=== PATIENT | female | born 1965 | race Caucasian/White ===

== ENCOUNTER 2020-03-05 06:01 | Day surgery (SDC) | payer OTHER, SELFPAY ==
[2020-02-27 10:25] VITALS: BMI 25.1
--- NOTE | 2020-03-03 08:50 | HO.ANESPROP2 ---
Documented by User: Hodan Melo 03/03/20 08:56 HPI - Anesthesia Eval Consult details Narrative: 55yo F for cholecystectomy, s/p ERCP 02/03/20 with [facility], [facility] Past Medical History Medical History Choledocholithiasis Cholelithiasis History of Xmsah-Vqcyflaje-Txxni (WPW) syndrome Surgical History Surgical History History of ERCP History of Problems with Anesthesia: No Social History Social History Smoking Status: Current every day smoker Packs Per Day: 1 Cigarettes Per Day: 20.0 Years Smoked: 27 Smoked in Last 30 Days: Yes Use of substances other than those prescribed or required for medical reasons: No Advance Directives Information Provided: Yes Recently lost weight without trying: No Meds Allergies Allergy/AdvReac Type Severity Reaction Status Date / Time No Known Allergies Allergy Verified 02/27/20 10:34 [No Known Allergies*] Home Medications Medication Instructions Recorded Confirmed Type No Known Home Meds 03/05/20 03/05/20 History Exam Exam Date and Time: March 03, 2020 0850 Height,Weight and Vital Signs: Height 5 ft 10 in Weight 79.379 kg Pertinent Lab Results Pertinent Lab Results: Laboratory Tests 02/02/20 02/02/20 07:15 07:15 WBC 6.5 Hgb 11.7 L Hct 35.1 L Plt Count 175 Sodium 139 Potassium 4.2 Chloride 105 BUN 5 L Creatinine 0.62 Narrative Narrative: EKG 01/31/20: NSR @67, WPW Documented by User: Nesha Ceja 03/05/20 07:49 [facility], [facility] Past Medical History Medical History Choledocholithiasis Cholelithiasis History of Duxft-Hkmmpvqpg-Zdanm (WPW) syndrome Surgical History Surgical History History of ERCP Social History Social History Smoking Status: Current every day smoker Packs Per Day: 1 Cigarettes Per Day: 20.0 Years Smoked: 27 Smoked in Last 30 Days: Yes Use of substances other than those prescribed or required for medical reasons: No Advance Directives Information Provided: Yes Recently lost weight without trying: No Meds Allergies Allergy/AdvReac Type Severity Reaction Status Date / Time No Known Allergies Allergy Verified 02/27/20 10:34 [No Known Allergies*] Home Medications Medication Instructions Recorded Confirmed Type No Known Home Meds 03/05/20 03/05/20 History Exam Airway Mallampati Class: II TM Dist: >3cm Neck ROM: Full Loose/Missing/Broken Teeth: Yes (9 chipped) Heart: RRR Lungs: CTA Assessment and Plan Assessment Anesthesia Assessment: Anesthesia Plan Discussed, Smoking Cess. Discussed and Chart Reviewed Final Anesthetic Review NPO: Yes ASA Class: II Final Preanesthetic Review: No Changes in Pt Med Stat, Meds/Allgs Chart Reviewed, Consent Obtained/Reviewed and Anes Risks/Benef Reviewed Patient Risk: Intermediate Procedure Risk: Intermediate Assessment/Block/Sedation in SS: Assess/Block/Sedation-SS Anesthetic Plan Anesthetic Plan: GA Disposition: Standard PACU
[2020-03-05] VITALS (8 sets, daily range): BP systolic 121–138; BP diastolic 62–75; PULSE 66–86; RESP 16; TEMP 36.1–36.4; O2SAT 96–100
[2020-03-05] MEDS: Acetaminophen 325 MG TABLET 650 MG PO (06:40)
[2020-03-05] MEDS: Lactated Ringers 1,000 ML 100 ML IVCONT (06:41)
--- NOTE | 2020-03-05 07:31 | MHC.SHP ---
Pre-Procedural Eval Section A The patient is an INPATIENT: No Changes since office visit: Yes Patient answered all questions; No Cold of Flu in the past 2 weeks, No New Medical Problems and No Changes in Medication The History & Physical has been completed within 30 days and I have reviewed it.: Yes Section B Chief Complaint: Gallstone Pancreatitis, Choledocholithiasis Allergies: Allergies Allergy/AdvReac Type Severity Reaction Status Date / Time No Known Allergies Allergy Verified 02/27/20 10:34 [No Known Allergies*] Plan Diagnosis/Plan: Unchanged Patient has been examined and remains a candidate for the planned procedure
--- NOTE | 2020-03-05 08:21 | P.BOP_ITS ---
Brief Operative Note Date of procedure: 03/05/20 Pre-op diagnosis: Choleducholithiasis, cholelithiasis Post-op diagnosis: same Procedure: Laparoscopic cholecystectomy Procedure details: Patient was brought to the OR and placed in a supine position. After administering general anesthesia the patient's abdomen was prepped with ChloraPrep and draped in a sterile fashion. A surgical time-out was called and the consent confirmed. Patient received preoperative antibiotics and Venodyne boots were in place. Local anesthesia consisting of 0.75% Sensorcaine with epinephrine was infiltrated in a periumbilical region. A 5 mm incision was made above the umbilicus in a transverse fashion. The Veress needle was then inserted while elevating abdominal cavity with towel clips. After positive drop test the abdomen was insufflated to a pressure of 15 mm of mercury. The Veress needle was then removed and a 5 mm trocar inserted. The camera was inserted in the abdomen explored. A 12 mm trocar was then placed in the epigastrium and 2 5 mm trocars placed in the right upper quadrant. The patient was placed in reverse Trendelenburg positioning and rotated to the left. The gallbladder was grasped with the fundus and retracted cephalad.. The infundibulum was then grasped and retracted away from the liver bed. The Dolphin dissected was then used to dissect the peritoneum off the infundibulum to reveal the junction with the cystic duct. Cystic artery was noted slightly medial and posterior to the cystic duct. After obtaining a critical view the cystic duct was doubly clipped and divided. The cystic artery was then doubly clipped and divided. The g allbladder was then dissected off the liver bed using electrocautery with an L hook. Hemostasis was assured all times using the electrocautery. When the gallbladder is completely dissected off the liver bed was placed in an Endo- Catch bag and brought out through the epigastric incision. The gallbladder was sent to pathology for further examination. The abdomen was then re-examined. The liver bed was irrigated and suctioned dry. No bleeding or bile leak could be identified. CO2 was then evacuated and all trocars removed. Fascia was closed at the epigastric incision using a [id number] 0 Polysorb suture. Skin was closed in all incisions using a subcuticular 4 0 Polysorb suture. Sterile dressings consisting of Steri-Strips, 2 x 2 gauze, and Tegaderm were then applied. The patient tolerated the procedure well. Sponge instrument and needle counts reported as correct. The patient was transferred to PACU in stable condition. Operative findings: Gallbladder was noted to have multiple small gallstones but minimal inflammation or wall thickening. A large cyst of the liver was identified in the right lobe adjacent to the stomach. No obvious liver masses were appreciated. Implants: none Surgeon: Sina Fernandez MD Anesthesia: GETA Grinding Operator: Leonor Justice Estimated blood loss (mL): 5 Urine output (mL): 0 Pathology: other (gallbladder) Condition: stable Disposition: PACU
[2020-03-05] MEDS: oxyCODONE HCl Immed Release 5 MG TABLET PO (09:07)
--- NOTE | 2020-03-09 15:06 | W.PM.OPN ---
Operative Note Operative Note Narrative: Date of procedure: 03/05/20 Pre-op diagnosis: Choleducholithiasis, cholelithiasis Post-op diagnosis: same Procedure: Laparoscopic cholecystectomy Procedure details: Patient was brought to the OR and placed in a supine position. After administering general anesthesia the patient's abdomen was prepped with ChloraPrep and draped in a sterile fashion. A surgical time-out was called and the consent confirmed. Patient received preoperative antibiotics and Venodyne boots were in place. Local anesthesia consisting of 0.75% Sensorcaine with epinephrine was infiltrated in a periumbilical region. A 5 mm incision was made above the umbilicus in a transverse fashion. The Veress needle was then inserted while elevating abdominal cavity with towel clips. After positive drop test the abdomen was insufflated to a pressure of 15 mm of mercury. The Veress needle was then removed and a 5 mm trocar inserted. The camera was inserted in the abdomen explored. A 12 mm trocar was then placed in the epigastrium and 2 5 mm trocars placed in the right upper quadrant. The patient was placed in reverse Trendelenburg positioning and rotated to the left. The gallbladder was grasped with the fundus and retracted cephalad.. The infundibulum was then grasped and retracted away from the liver bed. The Dolphin dissected was then used to dissect the peritoneum off the infundibulum to reveal the junction with the cystic duct. Cystic artery was noted slightly medial and posterior to the cystic duct. After obtaining a critical view the cystic duct was doubly clipped and divided. The cystic artery was then doubly clipped and divided. The gallbladder was then dissected off the liver bed using electrocautery with an L hook. Hemostasis was assured all times using the electrocautery. When the gallbladder is completely dissected off the liver bed was placed in an Endo-Catch bag and brought out through the epigastric incision. The gallbladder was sent to pathology for further examination. The abdomen was then re-examined. The liver bed was irrigated and suctioned dry. No bleeding or bile leak could be identified. CO2 was then evacuated and all trocars removed. Fascia was closed at the epigastric incision using a [id number] 0 Polysorb suture. Skin was closed in all incisions using a subcuticular 4 0 Polysorb suture. Sterile dressings consisting of Steri-Strips, 2 x 2 gauze, and Tegaderm were then applied. The patient tolerated the procedure well. Sponge instrument and needle counts reported as correct. The patient was transferred to PACU in stable condition. Operative findings: Gallbladder was noted to have multiple small gallstones but minimal inflammation or wall thickening. A large cyst of the liver was identified in the right lobe adjacent to the stomach. No obvious liver masses were appreciated. Implants: none Surgeon: Sina Fernandez MD Anesthesia: GETA Balance Wheel Screw Hole Tapper: Leonor Justice Estimated blood loss (mL): 5 Urine output (mL): 0 Pathology: other (gallbladder) Condition: stable Disposition: PACU
== END 2020-03-05 10:01 | disposition home or self-care (01) ==
PROVIDERS: Visit Provider Surgery
PROC: 0FT44ZZ Resection of Gallbladder, Percutaneous Endoscopic Approach (ICD-10-PCS; CPT 47562; principal; 2020-03-05 07:30)
DX: K80.10 Calculus of gallbladder with chronic cholecystitis without obstruction (principal); K85.10 Biliary acute pancreatitis without necrosis or infection; K76.89 Other specified diseases of liver; I45.6 Pre-excitation syndrome; F17.210 Nicotine dependence, cigarettes, uncomplicated
CPT/HCPCS: 47562; 88304; J0131; J1100; J1885; J2250; J2405; J3010

== ENCOUNTER → 2020-03-11 15:05 | Outpatient (BNVA) | payer OTHER, SELFPAY | PROVIDERS: Visit Provider Surgery | DX: Z09 Encounter for follow-up examination after completed treatment for conditions other than malignant neoplasm (principal); Z87.19 Personal history of other diseases of the digestive system; Z90.49 Acquired absence of other specified parts of digestive tract | CPT/HCPCS: 99212 ==

== ENCOUNTER 2020-07-01 14:26 | Outpatient (REF) | payer OTHER, SELFPAY ==
[2020-07-01 16:38] LABS: Glucose Urine UA NEG (NEG); Leukocyte Esterase Urine NEG (NEG); Nitrite Urine NEG (NEG); Specific Gravity - Urine >= 1.030 (1.005-1.025); Urine Blood TRACE (NEG); Urine Ketones NEG (NEG); Urine Protein NEG (NEG-TRACE)
[2020-07-01 16:42] LABS: Appearance Urine CLEAR; Color Urine YELLOW
[2020-07-01 16:53] LABS: Bacteria Urine 1+ /LPF; RBC Urine 0-2 /HPF (0); Squamous Epithelial Cell Urine 2+ /LPF; WBC Urine 0 /HPF (0-4)
[2020-07-01 16:54] LABS: Alanine Aminotransferase 17 U/L (0-31); Albumin Level 4.2 g/dL (3.5-5.0); Alkaline Phosphatase 100 U/L (39-117); Anion Gap 10 (12-20); Aspartate Amino Transferase 24 U/L (5-31); Bilirubin Direct 0.4 mg/dL (0.0-0.5); Blood Urea Nitrogen 19 mg/dL (9-16); Calcium 9.5 mg/dL (8.4-10.2); Carbon Dioxide 28 mmol/L (22-29); Chloride 106 mmol/L (96-108); Cholesterol 195 mg/dL; Estimated Glomerular Filt Rate > 60; Glucose Fasting 90 mg/dL (60-99); HDL Cholesterol 63 mg/dL; LDL Cholesterol Calculated 121 mg/dl; Potassium 4.2 mmol/L (3.3-5.1); Sodium 140 mmol/L (135-145); Total Protein 7.2 g/dL (6.5-8.0); Triglycerides 57 mg/dL
== END 2020-07-01 14:27 | disposition home or self-care (01) ==
LOC: HO.HMGCLDS 14:26
PROVIDERS: PCP Internal Medicine; Visit Provider Internal Medicine
DX: Z00.01 Encounter for general adult medical examination with abnormal findings (principal); R79.89 Other specified abnormal findings of blood chemistry; K76.89 Other specified diseases of liver; Z72.0 Tobacco use
CPT/HCPCS: 36415; 80048; 80061; 80076; 81001

== ENCOUNTER 2020-07-20 15:57 | Outpatient (REF) | payer OTHER, SELFPAY ==
[2020-07-23 11:42] LABS: HPV mRNA E6/E7 rflx Not Detected (Not Detected)
== END 2020-07-20 15:58 | disposition home or self-care (01) ==
LOC: HO.LAB 15:57
PROVIDERS: Visit Provider Obstetrics & Gynecology
DX: Z01.419 Encounter for gynecological examination (general) (routine) without abnormal findings (principal)
CPT/HCPCS: 36415; 87624; 88142

== ENCOUNTER 2020-07-27 10:01 | Outpatient (REF) | payer OTHER, SELFPAY ==
--- NOTE | ~2020-07-27 | US_ITS ---
EXAMINATION: US ABDOMEN COMPLETE CLINICAL INFORMATION: Elevated LFTs. Liver cyst. COMPARISON: CT abdomen pelvis 01/31/2020. Ultrasound limited abdomen 01/31/2020. Ultrasound abdomen 09/11/2016. TECHNIQUE: Real-time imaging of the abdominal viscera. FINDINGS: PANCREAS: Normal. ABDOMINAL AORTA: The proximal, mid, and distal segments are normal in caliber. INFERIOR VENA CAVA: Visualized portions are normal. LIVER: There is a prominent cyst involving the left lobe of the liver measuring 13.1 x 9.1 x 12 cm. This is likely without significant change from the prior CT, given differences in technique. The cyst appears simple. The liver is normal in size. The liver contour is normal. Parenchymal echogenicity is normal. There is no intrahepatic biliary duct dilatation seen. GALLBLADDER: Surgically absent. COMMON BILE DUCT: Normal in caliber measuring 0.5 cm in diameter. RIGHT KIDNEY: There is an upper pole simple cyst measuring 3.9 cm. No hydronephrosis or renal calculi. The kidney measures 12.7 cm in maximum dimension. LEFT KIDNEY: There is a calculus at the midpole measuring 0.4 x 0.7 x 0.4 cm. No hydronephrosis or renal lesion. The kidney measures 13.0 cm in maximum dimension. SPLEEN: Normal. The spleen measures 10.0 cm in maximum dimension. FREE FLUID: None. US/US abdomen complete IMPRESSION: 1. Prominent cyst of the left lobe of the liver, as seen on prior CT. No additional liver lesions. 2. Unchanged right renal cyst which appears simple. 3. Nonobstructing left renal calculus.
== END 2020-07-27 10:02 | disposition home or self-care (01) ==
LOC: HO.HMGCX 10:01
PROVIDERS: Visit Provider Internal Medicine
DX: K76.89 Other specified diseases of liver (principal); R79.89 Other specified abnormal findings of blood chemistry
CPT/HCPCS: 76700

== ENCOUNTER 2020-09-19 08:41 | Outpatient (REF) | payer OTHER, SELFPAY ==
--- NOTE | ~2020-09-19 | MM_ITS ---
EXAMINATION: MM SCREENING DIGITAL BREAST TOMOSYNTHESIS, BILATERAL CLINICAL INFORMATION: Screening. Asymptomatic. The lifetime risk of breast cancer based on the Tyrer-Cuzick Model is 6%. COMPARISON: Outside mammography 05/06/2013, 11/08/2009 ([facility]). TECHNIQUE: Digital breast tomosynthesis is performed in both the craniocaudal and mediolateral oblique views along with computer-aided detection (CAD). Synthesized 2D images are generated from the tomosynthesis. Additional bilateral exaggerated CC views are provided. FINDINGS: There are scattered areas of fibroglandular density (ACR BI-RADS breast composition Category b). There are no significant masses, abnormal calcifications, or other abnormalities. There is stable intramammary node posterior upper outer left breast. Some grouped dermal calcifications are again noted posterior medial left breast. Other scattered calcifications unremarkable. The axilla and skin contours are unremarkable. MM/MM tomosynthesis screening BI IMPRESSION: No mammographic evidence of malignancy. ASSESSMENT: BI-RADS 2: Benign RECOMMENDATION: Routine annual mammography screening. This patient's information was entered into a reminder system with a target due date for their next mammogram.
== END 2020-09-19 08:42 | disposition home or self-care (01) ==
LOC: HO.MAMMO 08:41
PROVIDERS: PCP Internal Medicine; Visit Provider Internal Medicine
DX: Z12.31 Encounter for screening mammogram for malignant neoplasm of breast (principal)
CPT/HCPCS: 77063; 77067

== ENCOUNTER 2021-06-07 12:52 | Inpatient (IN) | payer OTHER, SELFPAY ==
--- NOTE | ~2021-06-07 | CT_ITS ---
EXAMINATION: CT ABDOMEN AND PELVIS WITHOUT CONTRAST CLINICAL INFORMATION: Abdominal pain. COMPARISON: Previous CT of the abdomen and pelvis January 2020 and abdominal ultrasound July 2020. TECHNIQUE: Multidetector volumetric imaging was performed from the superior aspect of the liver through the pubic symphysis. Sagittal and coronal reformatted images were obtained on the technologist's workstation. This CT examination was performed using dose optimization techniques as appropriate, variously including the following: *Automated exposure control *Adjustment of mA and/or kV according to patient size (this includes techniques or standardized protocols for targeted exams where dose is matched to indication/reason for exam; i.e. extremities or head) *Use of iterative reconstruction technique DLP: 600 mGy-cm FINDINGS: LUNG BASES: The visualized lung bases are unremarkable. LIVER, GALLBLADDER, AND BILIARY TREE: The liver is normal in size, shape, and attenuation. There is a large 9 x 12 x 12 cyst in the left lobe of the liver. This is not appreciably changed in size. There is some new stranding of the surrounding fat adjacent to the inferior margin of the cyst. Appearance is questionable for infected cyst or possibly cyst rupture. There is a 5 mm low-attenuation lesion in the posterior segment of the right lobe of the liver that is difficult to characterize axial image 29 series 2. This is stable from previous CT scan January 2020 may represent a cyst as well. The liver is otherwise unremarkable. The gallbladder has been removed. There is no biliary duct dilatation. PANCREAS: Unremarkable. SPLEEN: Unremarkable. ADRENAL GLANDS: Unremarkable. KIDNEYS AND URETERS: There is a 3 x 5 cm simple cyst in the upper pole of the right kidney. No imaging followup is indicated. There are small bilateral renal stones. Largest stone measures 2 x 3 mm in the upper pole of the left kidney. No hydronephrosis, ureteral dilatation or ureteral stone. BLADDER: Unremarkable. GASTROINTESTINAL TRACT: There is mild diverticulosis of the colon. No evidence of diverticulitis is seen. Small and large bowel is otherwise unremarkable. The appendix is unremarkable. The stomach is unremarkable. There is a small to moderate amount of fluid in the pelvis. ABDOMINAL WALL: There is a small umbilical hernia containing fat. LYMPH NODES: Normal. VASCULAR: Unremarkable. PELVIC VISCERA: Unremarkable. OSSEOUS STRUCTURES: Unremarkable. CT/CT abdomen pelvis wo con IMPRESSION: Large 9 x 12 x 12 cm cyst in the left lobe of the liver. There is new stranding of the fat adjacent to the cyst. Appearance is questionable for complex possibly superinfected cyst or changes from cyst rupture. Small to moderate amount of fluid in the pelvis. 3 x 5 cm right simple renal cyst. Small bilateral renal stones. Fleischner guidelines were followed.
--- NOTE | ~2021-06-07 | US_ITS ---
EXAMINATION: US GUIDED FINE-NEEDLE ASPIRATION HEPATIC CYST CLINICAL INFORMATION: Complex hepatic cyst, likely superinfected. COMPARISON: CT abdomen and pelvis 06/07/2021. TECHNIQUE: Following explaining the ultrasound-guided liver cyst drainage procedure, and the benefits and risks, a written consent was obtained. The patient was placed supine on the ultrasound stretcher and preliminary ultrasound imaging was obtained through the abdomen. An optimal site was selected along the left anterior abdominal wall paramidline location and marked. The marked area was cleaned and draped in the usual sterile manner. 1% lidocaine was injected at the puncture site. A 4-[employer] catheter was then advanced through the left hepatic lobe into the cyst under ultrasound sterile ultrasound guidance. After observing fluid return, the stylet was withdrawn and approximately 40 mL of fluid was collected in a standard syringe and sent to the lab. The rest of fluid was drained into a vacuum bottle via a connecting cannula. After obtaining all fluid and observing no more fluid remaining and ultrasound confirming there was no cyst remaining, the catheter was withdrawn and complete hemostasis was achieved at the puncture site. A sterile dressing was applied post procedure. The patient tolerated the procedure extremely well. FINDINGS: There is a large midline left hepatic lobe cyst measuring 11.5 x 12.2 x 8. 22 cm. Approximately 450 mL of fluid was drained from the left hepatic lobe liver cyst and sent to the lab as per the referring physician's orders for Gram stain, culture and sensitivity. US/US guided fine needle asp IMPRESSION: Successful ultrasound-guided left hepatic lobe large, complex cyst drainage performed without immediate complications.
[2021-06-07 14:46] VITALS: BP 130/74; PULSE 82; RESP 20; TEMP 36.9; O2SAT 100; BMI 25.1
--- NOTE | 2021-06-07 14:49 | ECG_ITS ---
Test Reason : ABDOMINAL PAIN Blood Pressure : / mmHG Vent. Rate : 085 BPM Atrial Rate : 085 BPM P-R Int : 160 ms QRS Dur : 082 ms QT Int : 368 ms P-R-T Axes : 069 029 033 degrees QTc Int : 437 ms Normal sinus rhythm Normal ECG When compared with ECG of 31-JAN-2020 13:23, Zlgcv-Ylmvqneed-Opdnd is no longer Present Referred By: Generic ED Physician Electronically Signed By:Bony Gomez
[2021-06-07 16:25] LABS: Hematocrit 42.5 % (37.0-47.0); Hemoglobin 14.1 g/dl (12.0-16.0); Mean Corpuscular HGB Conc 33.2 g/dl (31.0-35.0); Mean Corpuscular Hemoglobin 29.3 pg (27.0-33.0); Mean Corpuscular Volume 88.2 fL (80.0-98.0); Mean Platelet Volume 9.5 fL (9.4-12.3); Platelet Count 270 X10*3/uL (160-400); Red Blood Count 4.82 X10*6/uL (4.20-5.50); Red Cell Distribution Width 12.8 % (11.0-16.0)
[2021-06-07 16:30] LABS: Anion Gap 14 (12-20); Blood Urea Nitrogen 15 mg/dL (9-16); Calcium 10.1 mg/dL (8.4-10.2); Carbon Dioxide 26 mmol/L (22-29); Chloride 106 mmol/L (96-108); Creatinine Clr Calc Pharmacy 86.1; Estimated Glomerular Filt Rate > 60; Glucose Random 173 mg/dL (60-115); Potassium 3.3 mmol/L (3.3-5.1); Sodium 143 mmol/L (135-145)
[2021-06-07 16:31] LABS: COVID-19 Test Negative (Negative)
[2021-06-07 16:37] LABS: WBC ABN SCTR FOR CBC 1
[2021-06-07 16:45] LABS: Band Neutrophils Percent 3 % (3-5); Lymphocytes Percent Manual 2 % (20-40); Monocytes Percent Manual 5 % (2-11); Neutrophils Percent Manual 90 % (45-73)
[2021-06-07 16:48] LABS: Platelet Estimate NORMAL (NORMAL)
[2021-06-07 16:49] LABS: Platelet Morphology Comment NORM; RBC Morphology NORMAL
[2021-06-07 16:50] LABS: Toxic Vacuolation PRESENT
[2021-06-07 16:51] LABS: Lymphocytes Absolute Manual 0.4 X10*3/uL (1.2-4.9); Monocytes Absolute Manual 0.9 X10*3/uL (0.1-1.2); White Blood Count 18.3 X10*3/uL (4.8-10.8)
[2021-06-07 22:22] VITALS: BP 160/57; PULSE 116; RESP 16; TEMP 37.9; O2SAT 100
--- NOTE | 2021-06-07 22:29 | ED_ITS ---
HPI - Abdominal Pain General Chief Complaint: Abdominal Pain Stated Complaint: ABD PAIN Time Seen by Provider: 06/07/21 17:52 Source: patient Mode of arrival: ambulatory Limitations: no limitations History of Present Illness HPI narrative: 56-year-old female with a past medical history of choledocholithiasis and cholelithiasis who is now status post ERCP on February of 2020 presenting to the ED with complaints of epigastric abdominal pain that has now radiated to her upper/lower abdomen for 4 days. She reports when she was having her CT scan today she had 1 episode of vomiting small amount of bilious emesis. Other than that she denies any nausea vomiting. She had labs and a CT scan of abdomen and pelvis while she was in the waiting room and labs reviewed at this time. She reports that she noticed today while she was in the waiting room that she also had some blood in her urine although no clots and it was small amounts of blood. She reports the abdominal pain does not radiate to her back or her chest. She denies any dizziness, headaches, neck pain /stiffness, trouble swallowing or breathing, chest pain or shortness of breath, dyspnea on exertion, orthopnea, palpitations, diarrhea, constipation, black or bloody stools , recent travel or sick contacts, possible bad food exposure, recent antibiotic usage or any other symptoms complaints or concerns at this time. patient reports that she is fully vaccinated to the COVID vaccine and she was supposed to get her booster on Monday. Patient denies any drug or alcohol usage. MD elicited complaint: abdominal pain Pertinent past history: other ( See above) Onset (ago): day(s) (4) Pain Consistency: constant Location: epigastric Severity: severe Pain scale (0-10): 10 Quality: aching Radiation: LUQ, RUQ, LLQ and RLQ Exacerbating factors: nothing Relieving factors: nothing Associated symptoms: nausea, vomiting and hematuria Related Data Home Medications Medication Instructions Recorded Confirmed No Known Home Meds 06/24/20 06/24/20 Allergies Allergy/AdvReac Type Severity Reaction Status Date / Time No Known Allergies Allergy Verified 07/20/20 15:00 [No Known Allergies*] Review of Systems Review of Systems Constitutional : No Fever, No Chills, No Night Sweats, No Fatigue, No Malaise Cardiovascular : No Chest Pain, No SOB Respiratory : No Cough, No Sputum, No Wheezing, No Dyspnea Gastrointestinal : + Nausea, + Vomiting, No Diarrhea, + abdominal Pain, No Hematochezia, No Melena Genitourinary : No irregular bleeding, No Dysuria, No Urinary Frequency, + Hematuria,No Urinary Incontinence, No Urgency, No Flank Pain Musculoskeletal : No joint pain, No Myalgias, No Joint Swelling Skin : No Skin Lesions, No rash Neuro : No Weakness, No Numbness, No Paresthesias, No Loss of Consciousness, No Dizziness, No Headache Heme/Lymph: No Lymphadenopathy Endocrine : No Temperature Intolerance Yes all other systems are reviewed and are negative Physical Exam Vital Signs: Vital Signs: Last Vital Signs Temp 100.3 F 06/07/21 22:22 Pulse 116 H 06/07/21 22:22 Resp 15 06/07/21 23:11 BP 160/57 H 06/07/21 22:22 Pulse Ox 100 06/07/21 22:22 BMI result Body Mass Index 25.1 vital signs have been reviewed as normal and appeared to be correct. Blood pressure normal. Heart rate normal. Respiration rate normal. Temperature normal. Oxygen saturation normal. Appearance: Alert. Oriented X3. No acute distress. Head: Normal external exam. Normocephalic. Eyes: PERRLA. EOMI. Conjunctiva and sclera normal. Eyelids normal. ENT: Pharynx normal. Uvula midline. Moist mucous membranes. No trismus noted. No drooling noted. No muffled voice noted. Neck: Normal inspection. Neck supple. FROM. No adenopathy. No meningeal signs. CVS: Normal heart rate and rhythm. Heart sound normal. No murmurs noted. Pulses normal throughout. Respiratory: No respiratory distress. Painless inspiration. Breath sounds normal. No wheezes/rales/rhonchi noted. Chest nontender. No accessory muscle usage noted or decreased air movement noted. Abdomen: Soft and diffusely tender throughout with guarding. Nondistended. No guarding. No rigidity. Bowel sounds normal in all 4 quadrants. No distention noted. No organomegaly noted. No visible injury noted. No rebound tenderness. Negative Rovsing sign. Negative obturator's sign. Negative psoas sign. Negative Pinon sign. Back: No CVA tenderness. Full range of motion noted. Skin: Skin warm and dry. Normal skin color. Normal skin turgor. No rashes/ lesions/lacerations noted. Extremities: Extremities exhibit normal range of motion. Extremities nontender. Neuro: Oriented X 3. No motor deficit. No sensory deficit. Reflexes normal. Normal steady gait. Course Course Course Narrative: 22:15pm - 56-year-old female with a past medical history of choledocholithiasis and cholelithiasis who is now status post ERCP on February of 2020 presenting to the ED with complaints of Nausea/vomiting, epigastric abdominal pain that has now radiated to her upper/lower abdomen for 4 days and hematuria. - She had labs and a CT scan of abdomen and pelvis while she was in the waiting room and labs reviewed at this time. - Patient noted to [place] [address]. Random glucose 173. Total bilirubin 1.5. Otherwise all other labs are within normal limits. Patient negative for COVID. - CT scan of abdomen and pelvis without IV Contrast revealed the large 9 x 12 x 12 cm cyst in the left lobe of the liver. There is is new stranding of the fat adjacent to the cyst. appearance is questionable for complex possible super i nfected cyst or changes from cyst rupture. along with small to moderate amount of fluid in the pelvis. 3 x 5 cm right simple renal cyst. Small bilateral renal stones. Otherwise no other acute processes were noted - therefore at this time blood cultures, lactic acid and a L of IV fluids along with IV Zosyn ordered due to patient now meet sepsis she is tachycardic and she has the elevated white blood cell count that was done in the waiting room which is 18,000. will also give 4 mg of morphine and 4 mg of Zofran. I also consulted with Dr. Figueroa the General Surgeon he reported that she does not need any surgery at this time. Will consult with the primer press operator Dr. Velásquez then re-evaluate. Reevaluation(s) Reevaluation #1: - I consulted with Dr. Velásquez and he reported that if the patient has a fever, tachycardia and elevated white blood cell count that she most likely has a infected liver cyst and that she will need to be admitted for IR drain for the liver cyst. Therefore I discussed this case with Dr. Reed and he reported that he will admit the patient at this time. Her pain is more c ontrolled after the 1 mg of Dilaudid. The 4 mg of morphine did not help. Patient understands agrees with this plan. Time: 00:01 MDM - Abdominal Pain Medical Records Attestation: I reviewed the patient's medical records. Lab Data Attestation: I reviewed the patient's lab results. Result diagrams: 06/07/21 16:04 06/07/21 16:05 Labs: Lab Results 06/07/21 06/07/21 06/07/21 Range/Units 16:04 16:04 16:05 WBC 18.3 H (4.8-10.8) X10*3/uL RBC 4.82 (4.20-5.50) X10*6/uL Hgb 14.1 (12.0-16.0) g/dl Hct 42.5 (37.0-47.0) % MCV 88.2 (80.0-98.0) fL MCH 29.3 (27.0-33.0) pg MCHC 33.2 (31.0-35.0) g/dl RDW 12.8 (11.0-16.0) % Plt Count 270 (160-400) X10*3/uL MPV 9.5 (9.4-12.3) fL Immature Gran % (Auto) Cancelled Neut % (Auto) Cancelled Lymph % (Auto) Cancelled Christian % (Auto) Cancelled Eos % (Auto) Cancelled Baso % (Auto) Cancelled Lymph # (Auto) Cancelled Christian # (Auto) Cancelled Eos # (Auto) Cancelled Baso # (Auto) Cancelled Abs Immat Gran (auto) Cancelled Absolute Neuts (auto) Cancelled Absolute Nucleated RBC 0.000 (0.0-0.012) X10*3/uL Nucleated RBC % (auto) 0.0 (0.0-0.2) /100WBC Neutrophils % (Manual) 90 H (45-73) % Band Neutrophils % 3 (3-5) % Lymphocytes % (Manual) 2 L (20-40) % Monocytes % (Manual) 5 (2-11) % Abs Neuts (Manual) 17.0 H (2.0-8.3) X10*3/uL Lymphocytes # (Manual) 0.4 L (1.2-4.9) X10*3/uL Monocytes # (Manual) 0.9 (0.1-1.2) X10*3/uL Toxic Vacuolation PRESENT Platelet Estimate NORMAL (NORMAL) Plt Morphology Comment NORM RBC Morphology NORMAL Sodium 143 (135-145) mmol/L Potassium 3.3 D (3.3-5.1) mmol/L Chloride 106 (96-108) mmol/L Carbon Dioxide 26 (22-29) mmol/L Anion Gap 14 (12-20) BUN 15 (9-16) mg/dL Creatinine 0.77 (0.5-1.4) mg/dL Estim Creat Clear Calc 86.1 Estimated GFR > 60 Random Glucose 173 H (60-115) mg/dL Lactic Acid (0.5-2.0) mmol/L Calcium 10.1 D (8.4-10.2) mg/dL Total Bilirubin 1.5 H (0.0-1.0) mg/dL Direct Bilirubin 0.5 (0.0-0.5) mg/dL AST 21 (5-31) U/L ALT 16 (0-31) U/L Alkaline Phosphatase 90 (39-117) U/L Lactate Dehydrogenase 214 (122-220) U/L Total Protein 7.2 (6.5-8.0) g/dL Albumin 4.0 (3.5-5.0) g/dL Lipase 10 (8-78) U/L COVID-19 ([facility]IL[facility]) Negative (Negative) COVID-19 Clin Com See Note 06/07/21 Range/Units 22:39 WBC (4.8-10.8) X10*3/uL RBC (4.20-5.50) X10*6/uL Hgb (12.0-16.0) g/dl Hct (37.0-47.0) % MCV (80.0-98.0) fL MCH (27.0-33.0) pg MCHC (31.0-35.0) g/dl RDW (11.0-16.0) % Plt Count (160-400) X10*3/uL MPV (9.4-12.3) fL Immature Gran % (Auto) Neut % (Auto) Lymph % (Auto) Christian % (Auto) Eos % (Auto) Baso % (Auto) Lymph # (Auto) Christian # (Auto) Eos # (Auto) Baso # (Auto) Abs Immat Gran (auto) Absolute Neuts (auto) Absolute Nucleated RBC (0.0-0.012) X10*3/uL Nucleated RBC % (auto) (0.0-0.2) /100WBC Neutrophils % (Manual) (45-73) % Band Neutrophils % (3-5) % Lymphocytes % (Manual) (20-40) % Monocytes % (Manual) (2-11) % Abs Neuts (Manual) (2.0-8.3) X10*3/uL Lymphocytes # (Manual) (1.2-4.9) X10*3/uL Monocytes # (Manual) (0.1-1.2) X10*3/uL Toxic Vacuolation Platelet Estimate (NORMAL) Plt Morphology Comment RBC Morphology Sodium (135-145) mmol/L Potassium (3.3-5.1) mmol/L Chloride (96-108) mmol/L Carbon Dioxide (22-29) mmol/L Anion Gap (12-20) BUN (9-16) mg/dL Creatinine (0.5-1.4) mg/dL Estim Creat Clear Calc Estimated GFR Random Glucose (60-115) mg/dL Lactic Acid 2.7 H* (0.5-2.0) mmol/L Calcium (8.4-10.2) mg/dL Total Bilirubin (0.0-1.0) mg/dL Direct Bilirubin (0.0-0.5) mg/dL AST (5-31) U/L ALT (0-31) U/L Alkaline Phosphatase (39-117) U/L Lactate Dehydrogenase (122-220) U/L Total Protein (6.5-8.0) g/dL Albumin (3.5-5.0) g/dL Lipase (8-78) U/L COVID-19 (CHELITA) (Negative) COVID-19 Clin Com Imaging Data CT scan abdomen pelvis with IV contrast: Attestation: I personally reviewed and interpreted this imaging study as follows: Radiologist's impression: FINDINGS: LUNG BASES: The visualized lung bases are unremarkable.? LIVER, GALLBLADDER, AND BILIARY TREE: The liver is normal in size, shape, and attenuation. There is a large 9 x 12 x 12 cyst in the left lobe of the liver. This is not appreciably changed in size. There is some new stranding of the surrounding fat adjacent to the inferior margin of the cyst. Appearance is questionable for infected cyst or possibly cyst rupture. There is a 5 mm low-attenuation lesion in the posterior segment of the right lobe of the liver that is difficult to characterize axial image 29 series 2. This is stable from previous CT scan January 2020 may represent a cyst as well. The liver is otherwise unremarkable. The gallbladder has been removed. There is no biliary duct dilatation. PANCREAS: Unremarkable.? SPLEEN: Unremarkable.? ADRENAL GLANDS: Unremarkable.? KIDNEYS AND URETERS: There is a 3 x 5 cm simple cyst in the upper pole of the right kidney. No imaging followup is indicated. There are small bilateral renal stones. Largest stone measures 2 x 3 mm in the upper pole of the left kidney. No hydronephrosis, ureteral dilatation or ureteral stone.? BLADDER: Unremarkable.? GASTROINTESTINAL TRACT: There is mild diverticulosis of the colon. No evidence of diverticulitis is seen. Small and large bowel is otherwise unremarkable. The appendix is unremarkable. The stomach is unremarkable. There is a small to moderate amount of fluid in the pelvis. ABDOMINAL WALL: There is a small umbilical hernia containing fat.? LYMPH NODES: Normal. VASCULAR: Unremarkable. PELVIC VISCERA: Unremarkable.? OSSEOUS STRUCTURES: Unremarkable.? CT/CT abdomen pelvis wo con IMPRESSION: Large 9 x 12 x 12 cm cyst in the left lobe of the liver. There is new stranding of the fat adjacent to the cyst. Appearance is questionable for complex possibly superinfected cyst or changes from cyst rupture. Small to moderate amount of fluid in the pelvis. 3 x 5 cm right simple renal cyst. Small bilateral renal stones. ? Fleischner guidelines were followed. ECG Data Attestation: I personally reviewed and interpreted this ECG as follows: ECG interpretation date: 06/08/21 ECG interpretation time: 15:54 Interpretation: NSR with a ventricular rate of 85 With a normal TN interval normal QRS duration normal QT/QTC interval. No acute ischemic changes are noted. The Ch Parkinson White syndrome is no longer present in the EKG. similar compared to prior EKG 01/31/2020 although no Przhi-Ogzgrttuw-Ngday syndrome in this EKG. Critical Care Time Critical Care Time Critical Care Time: Yes Total Critical Care Time: 60 Attestation: I personally attest to this time spent taking care of the patient Discharge Plan Discharge Clinical Impression: Liver cyst, Fever, Sepsis Patient Disposition: Still a Patient [facility] Past Medical History Attestation statement: The following information was validated with the patient. Medical History Choledocholithiasis Cholelithiasis History of Ujile-Sedkagzyt-Qpszi (WPW) syndrome Surgical History History of cholecystectomy History of ERCP Family History Family History Mother T-cell lymphoma Father Dementia Heart disease Social History Social History Alcohol intake: never Patient Tobacco Use Status: Current everyday Tobacco user Cigarette Packs Per Day: 1 Cigarettes Per Day: 20.0 Years Smoked: 27 Use of substances other than those prescribed or required for medical reasons: No Advance Directives: No Advance Directives Information Provided: No Patient : No Gender identity: Female
[2021-06-07 22:35] LABS: Alanine Aminotransferase 16 U/L (0-31); Alkaline Phosphatase 90 U/L (39-117); Aspartate Amino Transferase 21 U/L (5-31); Bilirubin Direct 0.5 mg/dL (0.0-0.5); Bilirubin Total 1.5 mg/dL (0.0-1.0); Lipase 10 U/L (8-78); Total Protein 7.2 g/dL (6.5-8.0)
[2021-06-07 22:46] LABS: Lactate Dehydrogenase 214 U/L (122-220)
[2021-06-07] MEDS: Piperacillin Sodium/Tazobactam 2.25 GM in 0.9 % Sodium Chloride 50 ML IV (23:10)
[2021-06-07 23:11] VITALS: RESP 15
[2021-06-07] MEDS: Morphine Sulfate 4 MG/ML CARTRIDGE IVPUSH (23:11)
[2021-06-07] MEDS: ondansetron HCL 4 MG/2 ML VIAL IVPUSH (23:11)
[2021-06-07] MEDS: Acetaminophen 325 MG TABLET 975 MG PO (23:11)
[2021-06-07] MEDS: 0.9 % Sodium Chloride 1,000 ML 999 ML IVCONT (23:12)
[2021-06-07 23:14] LABS: Lactic Acid 2.7 mmol/L (0.5-2.0)
[2021-06-07] MEDS: HYDROmorphone HCl 1 MG/ML SYRINGE IVPUSH (23:22)
--- NOTE | 2021-06-07 23:28 | PC.NURSE ---
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 Provider aware.
--- NOTE | 2021-06-07 23:57 | P.HPHOSP_ITS ---
History of Present Illness Date of Service: 06/07/21 Chief Complaint: Fever 56F with a past medical history of kidney stones, renal cysts and liver cysts, history of choledocholithiasis/cholelithiasis status post ERCP in February 2020 presented to the hospital today with a chief complaint of abdominal pain/Fever. Patient reports that over the past 4 days she has been having intermittent episodes of epigastric pain associated nausea and vomiting. Denies any blood in the vomitus. Also complained of subjective fevers. Denies any chest pain palpitations. Denies any cough or sputum production. Denies any urinary symptoms. Denies any vaginal discharge or bleeding. Review of all other systems is negative except mentioned above ER course: Per ER team patient had CT abdomen pelvis done which showed 90 12 in to 12 cm cyst in the left lobe of the liver-appears complex cyst possible infection/rupture. Also noted to have 3-5 cm renal cyst. And kidney stones. On labs noted to have leukocytosis. Patient was given IV fluids and IV Zosyn for concern for infection. Discussed with Gastroenterology who recommended IR guided drainage in the morning and gastroenterology will follow up. ER team mentioned that patient was very tender on presentation, no guarding no rigidity. Pain slightly better after IV Dilaudid. Admitted for further management. FOR[facility]LY [facility], [facility] Medical History Choledocholithiasis Cholelithiasis History of Rsdet-Swugvohal-Kayxf (WPW) syndrome Family History Mother T-cell lymphoma Father Dementia Heart disease Pertinent family history: As mentioned above Surgical History History of cholecystectomy History of ERCP Social History Alcohol intake: never Patient Tobacco Use Status: Current everyday Tobacco user Cigarette Packs Per Day: 1 Cigarettes Per Day: 20.0 Years Smoked: 27 Use of substances other than those prescribed or required for medical reasons: No Advance Directives: No Advance Directives Information Provided: No Patient : No Gender identity: Female Meds Allergies Allergy/AdvReac Type Severity Reaction Status Date / Time No Known Allergies Allergy Verified 07/20/20 15:00 [No Known Allergies*] Home Medications Medication Instructions Recorded Confirmed Last Taken Type No Known Home Meds 06/24/20 06/08/21 Unknown History Physical Exam Vital Signs and Narrative: Vital Signs: Last Vital Signs Temp 100.3 F 06/07/21 22:22 Pulse 116 H 06/07/21 22:22 Resp 15 06/07/21 23:11 BP 160/57 H 06/07/21 22:22 Pulse Ox 100 06/07/21 22:22 BMI result Body Mass Index 25.1 Gen: Appears be in no acute distress HEENT: NCAT, Moist mucosa. Pulmonary: Vesicular breath sounds, fair air entry CVS: Normal S1-S2 Abdomen: BS+, Soft, diffusely tender, no guarding no rigidity Extremities: Warm well perfused Neuro: Alert and awake. Results Labs CBC and Chem 7: 06/07/21 16:04 06/07/21 16:05 Labs: Laboratory Results - last 24 hr 06/07/21 06/07/21 06/07/21 16:04 16:04 16:05 MCV 88.2 MCH 29.3 MCHC 33.2 RDW 12.8 Plt Count 270 MPV 9.5 Immature Gran % (Auto) Cancelled Neut % (Auto) Cancelled Lymph % (Auto) Cancelled Dickey % (Auto) Cancelled Eos % (Auto) Cancelled Baso % (Auto) Cancelled Lymph # (Auto) Cancelled Dickey # (Auto) Cancelled Eos # (Auto) Cancelled Baso # (Auto) Cancelled Abs Immat Gran (auto) Cancelled Absolute Neuts (auto) Cancelled Absolute Nucleated RBC 0.000 Nucleated RBC % (auto) 0.0 Neutrophils % (Manual) 90 H Band Neutrophils % 3 Lymphocytes % (Manual) 2 L Monocytes % (Manual) 5 Abs Neuts (Manual) 17.0 H Lymphocytes # (Manual) 0.4 L Monocytes # (Manual) 0.9 Toxic Vacuolation PRESENT Platelet Estimate NORMAL Plt Morphology Comment NORM RBC Morphology NORMAL Anion Gap 14 Estim Creat Clear Calc 86.1 Estimated GFR > 60 Random Glucose 173 H Lactic Acid Calcium 10.1 D Total Bilirubin 1.5 H Direct Bilirubin 0.5 AST 21 ALT 16 Alkaline Phosphatase 90 Lactate Dehydrogenase 214 Total Protein 7.2 Albumin 4.0 Lipase 10 COVID-19 ([facility]HELITA) Negative COVID-19 Clin Com See Note 06/07/21 22:39 MCV MCH MCHC RDW Plt Count MPV Immature Gran % (Auto) Neut % (Auto) Lymph % (Auto) Dickey % (Auto) Eos % (Auto) Baso % (Auto) Lymph # (Auto) Dickey # (Auto) Eos # (Auto) Baso # (Auto) Abs Immat Gran (auto) Absolute Neuts (auto) Absolute Nucleated RBC Nucleated RBC % (auto) Neutrophils % (Manual) Band Neutrophils % Lymphocytes % (Manual) Monocytes % (Manual) Abs Neuts (Manual) Lymphocytes # (Manual) Monocytes # (Manual) Toxic Vacuolation Platelet Estimate Plt Morphology Comment RBC Morphology Anion Gap Estim Creat Clear Calc Estimated GFR Random Glucose Lactic Acid 2.7 H* Calcium Total Bilirubin Direct Bilirubin AST ALT Alkaline Phosphatase Lactate Dehydrogenase Total Protein Albumin Lipase COVID-19 (CHELITA) COVID-19 Clin Com Imaging Radiologist's Impressions: Impressions Abdomen/Pelvis CT 06/07/21 15:47 IMPRESSION: Large 9 x 12 x 12 cm cyst in the left lobe of the liver. There is new stranding of the fat adjacent to the cyst. Appearance is questionable for complex possibly superinfected cyst or changes from cyst rupture. Small to moderate amount of fluid in the pelvis. 3 x 5 cm right simple renal cyst. Small bilateral renal stones. Fleischner guidelines were followed. Assessment and Plan (1) Liver cyst: Status: Acute (2) Fever: Status: Acute 56F with a past medical history of kidney stones, renal cysts and liver cysts, history of choledocholithiasis/cholelithiasis status post ERCP in February 2020 presented to the hospital today with a chief complaint of abdominal pain/Fever. Abdominal pain/fever: Patient noted to have leukocytosis, tachycardia, lactic acidosis-sepsis with concerns for intra-abdominal source- Empirically started on Zosyn. CT scan showed free fluid in the pelvis, liver cyst and renal cyst. Liver 6 concern for complex cyst versus infection versus rupture. Gastroenterology recommended IR guided drain is in the morning. Id consult Follow-up cultures Pain control NPO for now IV fluids DVT prophylaxis: SCD boots Code status: Full code Quality Stroke Does the patient have a stroke diagnosis?: No VTE Prior VTE?: No VTE Risk Level:: Medical - moderate - high VTE Device Contraindication: N/A - Device Ordered VTE Drug Contraindication: Treatment Not Indicated
[2021-06-08] VITALS (11 sets, daily range): BP systolic 105–163; BP diastolic 59–77; PULSE 69–98; RESP 15–21; TEMP 36.8–37.4; O2SAT 93–99
[2021-06-08 00:47] LABS: Reflex Lactate? Lactic Acid Added
[2021-06-08 01:40] LABS: ~Lactic Acid-LAB USE ONLY 1.5 mmol/L (0.5-2.0)
[2021-06-08] MEDS: 0.9 % Sodium Chloride 1,000 ML 50 ML IVCONT ×2 (01:47→16:42)
[2021-06-08 01:54] LABS: Appearance Urine CLEAR; Color Urine DK YELLOW; Glucose Urine UA NEG (NEG); Leukocyte Esterase Urine NEG (NEG); Nitrite Urine NEG (NEG); UACC Culture Trigger NO; Urine Blood TRACE (NEG); Urine Ketones NEG (NEG); Urine Protein TRACE MG/DL (NEG-TRACE)
[2021-06-08 02:08] LABS: Amorphous Sediment Urine TRACE /LPF; Mucus Urine 1+ /LPF; Squamous Epithelial Cell Urine TRACE /LPF; WBC Urine 0 /HPF (0-4)
[2021-06-08] MEDS: HYDROmorphone HCl 1 MG/ML SYRINGE 0.5 MG IVPUSH ×3 (02:59→18:25)
[2021-06-08] MEDS: Piperacillin Sodium/Tazobactam 3.375 GM in 0.9 % Sodium Chloride 50 ML IV ×4 (05:09→22:39)
[2021-06-08 07:16] LABS: Basophils Percent Auto 0.1 % (0-2); Hematocrit 37.7 % (37.0-47.0); Imm Gran Pct Auto 0.6 % (0.0-0.4); Lymphocytes Absolute Auto 0.8 X10*3/uL (1.2-4.9); MANUAL DIFF FLAG SCAN; Mean Corpuscular HGB Conc 31.8 g/dl (31.0-35.0); Mean Corpuscular Hemoglobin 28.6 pg (27.0-33.0); Mean Platelet Volume 9.7 fL (9.4-12.3); Monocytes Absolute Auto 1.6 X10*3/uL (0.1-1.2); Monocytes Percent Auto 9.3 % (2-11); Neutrophils Absolute Auto 14.2 x10*3/uL (2.0-8.3); Platelet Count 209 X10*3/uL (160-400); Red Blood Count 4.19 X10*6/uL (4.20-5.50); Red Cell Distribution Width 13.3 % (11.0-16.0); SCAN SMEAR FLAG 1; White Blood Count 16.8 X10*3/uL (4.8-10.8)
[2021-06-08 07:47] LABS: SLIDE REVIEW VERIFIED
[2021-06-08 07:50] LABS: Anion Gap 10 (12-20); Blood Urea Nitrogen 17 mg/dL (9-16); Calcium 9.1 mg/dL (8.4-10.2); Carbon Dioxide 27 mmol/L (22-29); Chloride 106 mmol/L (96-108); Creatinine Clr Calc Pharmacy 90.8; Estimated Glomerular Filt Rate > 60; Glucose Random 129 mg/dL (60-115); Potassium 4.2 mmol/L (3.3-5.1); Sodium 139 mmol/L (135-145)
[2021-06-08 08:15] LABS: INTERNATIONAL NORM RATIO 1.4 (0.9-1.1); Prothrombin Time 15.8 SEC (9.9-13.0)
--- NOTE | 2021-06-08 08:34 | P.CNGI_ITS ---
History of Present Illness Data of Consult Service Date: 06/08/21 Requesting physician: Clay Reed Primary Care Provider: Diane Gill MD [facility] Reason for consult: ?liver abscess 56F with a past medical history of kidney stones, renal cysts and liver cysts, history of choledocholithiasis/cholelithiasis status post ERCP and cholecystectomy who I am asked to see for assessment for possible liver abscess and abdominal pain She presented with fever and intermittent episodes of epigastric pain 10/10 without radiation associated nausea and vomiting fro the last 4 days. Symptoms not worse with food, but she has poor appetite. denies diarrhea or constipation, weight has been stable. no rectal bleeding, or melena She had CT abdomen pelvis done which showed 9 cmx 12cm in to 12 cm cyst in the left lobe of the liver-with concern for infection or rupture and some stranding.? Also noted to have 3-5 cm renal cyst with kidney stones.? On labs noted to have leukocytosis. Patient was given IV fluids and IV Zosyn for concern for infection.? Review of Systems Review of Systems: Constitutional : + Fever, + Chills, No Night Sweats, No Fatigue, No Malaise Cardiovascular : No Chest Pain, No SOB Respiratory : No Cough, No Sputum, No Wheezing, No Dyspnea Gastrointestinal : + Nausea, + Vomiting, No Diarrhea, + abdominal Pain, No Hematochezia, No Melena Genitourinary : No irregular bleeding, No Dysuria, No Urinary Frequency, + Hematuria,No Urinary Incontinence, No Urgency, No Flank Pain Musculoskeletal : No joint pain, No Myalgias, No Joint Swelling Skin : No Skin Lesions, No rash Neuro : No Weakness, No Numbness, No Paresthesias, No Loss of Consciousness, No Dizziness, No Headache Heme/Lymph: No Lymphadenopathy Endocrine : No Temperature Intolerance PMFSH Past Medical History Medical History Choledocholithiasis Cholelithiasis History of Ilpec-Bdgzrwpqx-Qwzbd (WPW) syndrome Family History Family History Mother T-cell lymphoma Father Dementia Heart disease Surgical History Surgical History History of cholecystectomy History of ERCP Social History Social History Alcohol intake: never Patient Tobacco Use Status: Current everyday Tobacco user Cigarette Packs Per Day: 1 Cigarettes Per Day: 20.0 Years Smoked: 27 Use of substances other than those prescribed or required for medical reasons: No Advance Directives: Yes Advance Directives on File: Yes Advance Directives Date on File: 06/08/21 Patient : No service: No Current occupational status: employed Gender identity: Female Meds Allergies Allergy/AdvReac Type Severity Reaction Status Date / Time No Known Allergies Allergy Verified 07/20/20 15:00 [No Known Allergies*] Active Medications: Current Medications Hydromorphone HCl (Hydromorphone Hcl 1 Mg/Ml Syringe) 0.5 mg IVPUSH Q4H PRN; Protocol PRN Reason: Breakthrough Pain Last Admin: 06/08/21 08:33 Dose: 0.5 mg Documented by: Sodium Chloride (Ns) 1,000 mls @ 50 mls/hr IVCONT .Q20H [facility] Last Admin: 06/08/21 01:47 Dose: 50 mls/hr Documented by: Piperacillin Sod/Tazobactam (Sod 3.375 gm/ Sodium Chloride) 50 mls @ 100 mls/hr IV Q6H [facility] Last Infusion: 06/08/21 05:39 Dose: Infused Documented by: Melatonin (Melatonin 3 Mg Tablet) 6 mg PO BEDTIME PRN PRN Reason: Insomnia Pharmacy Consult (Consult Rx Perform Med Rec) 1 each MISCELLANE ONCE PRN PRN Reason: Consult order Senna (Sennosides 8.6 Mg Tablet) 17.2 mg PO BEDTIME PRN PRN Reason: Constipation Sodium Chloride (0.9 % Sodium Chloride Flush 3 Ml Syringe) 3 ml IVFLUSH QSHIFT [facility] Last Admin: 06/08/21 08:25 Dose: Not Given Documented by: Home Medications Medication Instructions Recorded Confirmed Last Taken Type No Known Home Meds 06/24/20 06/08/21 Unknown History Physical Exam Vital Signs: Vital Signs: Last Vital Signs Temp 98.3 F 06/08/21 01:41 Pulse 88 06/08/21 07:31 Resp 16 06/08/21 08:33 BP 126/67 06/08/21 07:31 Pulse Ox 95 06/08/21 07:31 BMI result Body Mass Index 25.1 Appearance: Alert. Oriented X3. No acute distress. ? Head: Normal external exam. Normocephalic. Eyes: PERRLA. EOMI. Conjunctiva and sclera normal. Eyelids normal.? ENT: Pharynx normal. Uvula midline. Moist mucous membranes. ? No trismus noted.? No drooling noted.? No muffled voice noted. Neck: Normal inspection. Neck supple. FROM. No adenopathy. No meningeal signs. CVS: Normal heart rate and rhythm. Heart sound normal. No murmurs noted. Pulses normal throughout. Respiratory: No respiratory distress. Painless inspiration. Breath sounds normal. No wheezes/rales/rhonchi noted. Chest nontender. ? No accessory muscle usage noted or decreased air movement noted. Abdomen: Soft and diffusely tender RUQ.? Nondistended. No guarding. No rigidity. Bowel sounds normal in all 4 quadrants. No distention noted.? No organomegaly noted.? No visible injury noted.? No rebound tenderness.? N Back:? No CVA tenderness.? Full range of motion noted. Skin: Skin warm and dry.? Normal skin color.? Normal skin turgor. No carole hes/lesions/lacerations noted. Extremities: Extremities exhibit normal range of motion.? Extremities nontender. Neuro: Oriented X 3.? No motor deficit.? No sensory deficit.? Reflexes normal.? Normal steady gait. Psych--nml affect Results Labs CBC & Chem 7: 06/08/21 06:30 06/08/21 06:30 Labs: Short CBC 06/07/21 06/08/21 Range/Units 16:04 06:30 WBC 18.3 H 16.8 H (4.8-10.8) X10*3/uL Hgb 14.1 12.0 (12.0-16.0) g/dl Hct 42.5 37.7 (37.0-47.0) % Plt Count 270 209 (160-400) X10*3/uL BMP 06/07/21 06/08/21 16:05 06:30 Sodium 143 139 Potassium 3.3 D 4.2 D Chloride 106 106 Carbon Dioxide 26 27 BUN 15 17 H Creatinine 0.77 0.73 Calcium 10.1 D 9.1 D Liver Function 06/07/21 Range/Units 16:05 Total Bilirubin 1.5 H (0.0-1.0) mg/dL Direct Bilirubin 0.5 (0.0-0.5) mg/dL AST 21 (5-31) U/L ALT 16 (0-31) U/L Alkaline Phosphatase 90 (39-117) U/L Albumin 4.0 (3.5-5.0) g/dL Urine 06/08/21 Range/Units 01:47 Urine Color DK YELLOW Urine Appearance CLEAR Urine pH 6.0 (5.0-8.0) Ur Specific [place] 1.020 (1.005-1.025) Urine Protein TRACE (NEG-TRACE) MG/DL Urine Glucose (UA) NEG (NEG) MG/DL Imaging CT scan - abdomen: Attestation: I personally reviewed and interpreted this imaging study as follows: My impression: large liver cyst on left lobe Assessment and Plan (1) Liver cyst: Status: Acute (2) Fever: Status: Acute 1/ Large liver cyst, chronic -possibly infected or partial rupture, nothing to support amoebic abscess, etiolgoy not quite clear of the cyst, but not neoplastic appearing or having RF for neoplaisa e.g nodules or internal debris on imaging PLAN: 1/ consult IR for drainage, and send fluid for c/s and cytology, gram stain etc 2/ ID input Procedures Date of Service Date of Service: 06/08/21
--- NOTE | 2021-06-08 08:34 | PC.NURSE ---
pt states pain increases with cough mild with ambulation. she remains npo. medicated for pain dr mancia was in to assess pt and review care plan
--- NOTE | 2021-06-08 08:37 | PHA.MEDREC ---
Pharmacy Consult ? Medication Reconciliation Pharmacy has completed the medication reconciliation. Patient reports no medications at home. Darby Cabrera, ZuleykaD
--- NOTE | 2021-06-08 08:43 | PM.EVENT ---
Event Note Date of Service: 06/08/21 Event Note: I personally saw and examined the patient who was admitted just hours ago with what appear to be possible liver abscess as evident on CT. She is stable. She is on Zosyn, I will add Flagyl, I requested IR guided aspiration for culture. O/w a/p per H and P from this morning.
--- NOTE | 2021-06-08 08:48 | MHC.CM.PN ---
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
--- NOTE | 2021-06-08 13:36 | PC.NURSE ---
REPORT GIVEN FOR ADMISSION TO MED SURG
--- NOTE | 2021-06-08 13:47 | PC.NURSE ---
to ir. report was given to medical professionals for transfer post procedure
[2021-06-08] MEDS: Lidocaine HCl 1 % MPF 5 ML VIAL 4 ML SUBCUT (14:15)
--- NOTE | 2021-06-08 14:21 | P.CNID_ITS ---
History of Present Illness Data of Consult Service Date: 06/08/21 Requesting physician: Duncan Jones Primary Care Provider: Diane Gill MD HPI Reason for consult: abdominal discomfort She presents with abdominal discomfort She has had some left sided discomfort one to two days She has felt chilled as well Review of Systems 2 Verdana 4l Review of Systems: Yes all other systems are reviewed and Verdana 4d are negative PMFSH Past Medical History Medical History Choledocholithiasis Cholelithiasis History of Tzvos-Xhjkjmppk-Exckc (WPW) syndrome Family History Family History Mother T-cell lymphoma Father Dementia Heart disease Family history: reviewed and not pertinent Surgical History Surgical History History of cholecystectomy History of ERCP Social History Social History Household Members: Family Housing: House Do you presently have visiting nurse or other home services: No Alcohol intake: never Patient Tobacco Use Status: Current everyday Tobacco user Tobacco use type: Cigarette Cigarette Packs Per Day: 1 Cigarettes Per Day: 20.0 Years Smoked: 27 e-Cigarette/Vaping Use: Never Used Second Hand Smoke Exposure: No Advance Directives Date on File: 06/08/21 service: No Current occupational status: employed Gender identity: Female Meds Allergies Allergy/AdvReac Type Severity Reaction Status Date / Time No Known Allergies Allergy Verified 07/20/20 15:00 [No Known Allergies*] Active Medications: Current Medications Hydromorphone HCl (Hydromorphone Hcl 1 Mg/Ml Syringe) 0.5 mg IVPUSH Q4H PRN; Protocol PRN Reason: Breakthrough Pain Last Admin: 06/08/21 08:33 Dose: 0.5 mg Documented by: Sodium Chloride (Ns) 1,000 mls @ 50 mls/hr IVCONT .Q20H [facility] Last Admin: 06/08/21 01:47 Dose: 50 mls/hr Documented by: Piperacillin Sod/Tazobactam (Sod 3.375 gm/ Sodium Chloride) 50 mls @ 100 mls/hr IV Q6H [facility] Last Admin: 06/08/21 11:39 Dose: 100 mls/hr Documented by: Melatonin (Melatonin 3 Mg Tablet) 6 mg PO BEDTIME PRN PRN Reason: Insomnia Pharmacy Consult (Consult Rx Perform Med Rec) 1 each MISCELLANE ONCE PRN PRN Reason: Consult order Senna (Sennosides 8.6 Mg Tablet) 17.2 mg PO BEDTIME PRN PRN Reason: Constipation Sodium Chloride (0.9 % Sodium Chloride Flush 3 Ml Syringe) 3 ml IVFLUSH QSHIFT [facility] Last Admin: 06/08/21 08:25 Dose: Not Given Documented by: Physical Exam Verdana 4l Vital Signs: Verdana 4d Verdana 4d Vital Signs: Verdana 4d Verdana 4Bd Last Vital Signs Verdana 4d [employer]oldering Machine Feeder New 4d Soldering Machine Feeder New 4d Temp 98.7 F 06/08/21 11:55 Soldering Machine Feeder New 4d Pulse 93 06/08/21 11:55 [employer]oldering Machine Feeder New 4d Resp 16 06/08/21 11:55 BP 134/77 06/08/21 11:55 Pulse Ox 97 06/08/21 11:55 BMI result Body Mass Index 25.1 Const: General: cooperative HENMT: Head: Yes normal to inspection Mouth: Normal oral and palatal mucosa present Resp: Effort & Inspection: normal respiratory effort Cardio: Rate: regular rate Rhythm: regular rhythm GI: Palpation (GI): Soft to palpation and Tenderness to palpation present (GI) in the RUQ Skin: General skin exam: no rashes or lesions noted Extrem: General: Yes normal to inspection Results Labs CBC & Chem 7: 06/09/21 04:37 06/08/21 06:30 Labs: Short CBC 06/07/21 06/08/21 Range/Units 16:04 06:30 WBC 18.3 H 16.8 H (4.8-10.8) X10*3/uL Hgb 14.1 12.0 (12.0-16.0) g/dl Hct 42.5 37.7 (37.0-47.0) % Plt Count 270 209 (160-400) X10*3/uL BMP 06/07/21 06/08/21 16:05 06:30 Sodium 143 139 Potassium 3.3 D 4.2 D Chloride 106 106 Carbon Dioxide 26 27 BUN 15 17 H Creatinine 0.77 0.73 Calcium 10.1 D 9.1 D Liver Function 06/07/21 Range/Units 16:05 Total Bilirubin 1.5 H (0.0-1.0) mg/dL Direct Bilirubin 0.5 (0.0-0.5) mg/dL AST 21 (5-31) U/L ALT 16 (0-31) U/L Alkaline Phosphatase 90 (39-117) U/L Albumin 4.0 (3.5-5.0) g/dL Urine 06/08/21 Range/Units 01:47 Urine Color DK YELLOW Urine Appearance CLEAR Urine pH 6.0 (5.0-8.0) Ur Specific [place] 1.020 (1.005-1.025) Urine Protein TRACE (NEG-TRACE) MG/DL Urine Glucose (UA) NEG (NEG) MG/DL Assessment and Plan (1) Sepsis: Status: Resolved (2) Liver cyst: Status: Resolved She has liver cyst There are most concerns gram negative and gram positive She has anerobes and gram negative organisms likely Plan Would continue Piperacillin/Tazobactam Would drain cyst and culture if able. She may need IV antibiotics several days and transition to po
[2021-06-09 04:00] VITALS: BP 118/55; PULSE 84; RESP 18; TEMP 36.8; O2SAT 94
[2021-06-09] MEDS: Piperacillin Sodium/Tazobactam 3.375 GM in 0.9 % Sodium Chloride 50 ML IV (04:55)
[2021-06-09 05:00] LABS: Hematocrit 33.8 % (37.0-47.0); Hemoglobin 10.9 g/dl (12.0-16.0); Mean Corpuscular HGB Conc 32.2 g/dl (31.0-35.0); Mean Corpuscular Hemoglobin 29.1 pg (27.0-33.0); Mean Corpuscular Volume 90.1 fL (80.0-98.0); Mean Platelet Volume 9.7 fL (9.4-12.3); Platelet Count 179 X10*3/uL (160-400); Red Blood Count 3.75 X10*6/uL (4.20-5.50); Red Cell Distribution Width 13.3 % (11.0-16.0); White Blood Count 9.7 X10*3/uL (4.8-10.8)
[2021-06-09 07:38] VITALS: BP 121/68; PULSE 86; RESP 18; TEMP 36.5; O2SAT 96
--- NOTE | 2021-06-09 09:49 | PM.DS ---
DS: Providers Provider Date of Service: 06/09/21 Date of admission: 06/07/21 23:56 Primary care physician: Diane Gill MD Consults: 06/07/21 23:58 Consult to Gastroenterology Routine Consulting Provider: Nba Velásquez Reason for consultation: liver cyst; ?abscess 06/08/21 02:11 Consult to Infectious Diseases Routine Consulting Provider: Adenike Ahumada Reason for consultation: Sepsis DS: Diagnosis Discharge Diagnosis (1) Sepsis: Status: Acute (2) Liver cyst: Status: Acute DS: Summary Hospital Course Hospital Course: Chief Complaint: Fever 56F with a past medical history of kidney stones, renal cysts and liver cysts, history of choledocholithiasis/cholelithiasis status post ERCP in February 2020 presented to the hospital today with a chief complaint of abdominal pain/Fever. Patient reports that over the past 4 days she has been having intermittent episodes of epigastric pain associated nausea and vomiting.? Denies any blood in the vomitus.? Also complained of subjective fevers.? Denies any chest pain palpitations.? Denies any cough or sputum production.? Denies any urinary symptoms.? Denies any vaginal discharge or bleeding. Review of all other systems is negative except mentioned above ER course: Per ER team patient had CT abdomen pelvis done which showed 90 12 in to 12 cm cyst in the left lobe of the liver-appears complex cyst possible infection/rupture.? Also noted to have 3-5 cm renal cyst.? And kidney stones.? On labs noted to have leukocytosis. Patient was given IV fluids and IV Zosyn for concern for infection.? Discussed with Gastroenterology who recommended IR guided drainage in the morning and gastroenterology will follow up. ER team mentioned that patient was very tender on presentation, no guarding no rigidity.? Pain slightly better after IV Dilaudid.? Admitted for further management. hospital course: She was admitted and give IV Zosyn, and underwent IR guided drainage with gram stain showing no organism, however fever has resolved and WBC has come down to normal from 18. Infectious advises Augmentin for 10 days,.Pathology report is pending. Follow with your PCP for pathology report Time Spent with Patient Time attestation: Total time spent providing and/or coordinating discharge services: Discharge coordination time: Greater than 30 minutes Quality: Stroke Does the patient have a stroke diagnosis?: No Physical Exam Vital Signs: Vital Signs: Last Vital Signs Temp 97.7 F 06/09/21 07:38 Pulse 86 06/09/21 07:38 Resp 18 06/09/21 07:38 BP 121/68 06/09/21 07:38 Pulse Ox 96 06/09/21 07:38 BMI result Body Mass Index 25.1 Const: Other: General: AO X 3, no acute distress Resp: CTA bilateral CVS: S1,S2,RRR GI: +BS, NT, no distention Skin: No rash Neuro: motor grossly intact Psych: appropriate affect DS: Data Data Completed and Pending Pending studies at discharge: Pending at discharge 06/08/21 14:18 Cytology [PTH] Routine Labs on day of discharge: Laboratory Results - last 24 hr 06/09/21 04:37 WBC 9.7 RBC 3.75 L Hgb 10.9 L Hct 33.8 L MCV 90.1 MCH 29.1 MCHC 32.2 RDW 13.3 Plt Count 179 MPV 9.7 Absolute Nucleated RBC 0.000 Nucleated RBC % (auto) 0.0 Preliminary micro results at discharge 06/08/21 14:10 Routine Culture - Preliminary Abscess Intra-abdominal No growth to date. Anaerobic Culture - Preliminary No growth to date. 06/07/21 22:58 Blood Culture - Preliminary Blood - Venous No growth after 24 hours. 06/07/21 22:39 Blood Culture - Preliminary Blood - Venous No growth after 24 hours. Discharge Plan Discharge Anticipated Discharge Date/Time: 06/09/21 09:47 Patient Disposition: Home, Self-Care Discharge Diagnosis: Liver cyst ? infected Referrals: Diane Gill MD [Primary Care Provider] - 1 Week Discharge Orders: Discharge Order (Routine); Ordered 06/09/21 Ordered By: Duncan Jones Diet: advance to usual diet Activity on Discharge: As tolerated Stand Alone Forms: Patient Portal Discharge page Care Plan Goals: Full recovery Health Concerns: Liver cyst that maybe infected Plan of Treatment: Take Augmentin 875 twice for 7 days, follow up with your provider for pathology reports, call for appointment Assessment: As above
[2021-06-09] MEDS: Amoxicillin/Potassium Clav 875 MG TABLET PO (11:00)
[2021-06-09 11:08] VITALS: BP 137/71; PULSE 83; RESP 18; TEMP 36.3; O2SAT 98
== END 2021-06-09 12:00 | disposition home or self-care (01) | DRG 720 ==
LOC: HO.ED 22:46 → HO.EDOVER 06-08 00:10 → HO.S3 06-08 12:44
PROVIDERS: Physician Assistant Medical; Radiology Diagnostic Radiology; Admitting Provider Hospitalist; Emergency Provider Internal Medicine; PCP Internal Medicine; Visit Provider Internal Medicine
PROC: 0F903ZX Drainage of Liver, Percutaneous Approach, Diagnostic (ICD-10-PCS; principal; 2021-06-08 15:30)
DX: A41.9 Sepsis, unspecified organism (principal); K76.89 Other specified diseases of liver; F17.210 Nicotine dependence, cigarettes, uncomplicated; I45.6 Pre-excitation syndrome; N20.0 Calculus of kidney; Z20.822 Contact with and (suspected) exposure to COVID-19; Z71.6 Tobacco abuse counseling; Z87.442 Personal history of urinary calculi
CPT/HCPCS: 10005; 36415; 74176; 80048; 80076; 81001; 83605; 83615; 83690; 85007; 85025; 85027; 85610; 87040; 87071; 87073; 87205; 87635; 88173; 88305; 93005; 99152; 99285; J1170; J2270; J2405; J2543

== ENCOUNTER → 2021-07-02 11:50 | Outpatient (BNVA) | payer OTHER, SELFPAY | PROVIDERS: PCP Internal Medicine; Referring Provider Internal Medicine; Visit Provider Internal Medicine Gastroenterology | DX: K76.89 Other specified diseases of liver (principal) | CPT/HCPCS: 99212 ==

== ENCOUNTER 2021-07-08 09:34 | Outpatient (REF) | payer OTHER, SELFPAY ==
--- NOTE | ~2021-07-08 | US_ITS ---
EXAMINATION: US ABDOMEN LIMITED CLINICAL INFORMATION: Right upper quadrant pain. COMPARISON: CT abdomen and pelvis without contrast 06/07/2021 TECHNIQUE: Real-time imaging of the right upper quadrant abdominal viscera. FINDINGS: PANCREAS: The pancreas is homogeneous in echotexture. Anterior and superior to the body of the pancreas is a complex fluid collection measuring 10.3 x 7.1 x 12.5 cm. This could be the same liver cyst which was drained previously. LIVER: Fluid collection in between the liver and the pancreas likely originating from the left hepatic lobe. The liver is normal in size. The liver contour is normal. Parenchymal echogenicity is normal. No focal hepatic lesion. There is no intrahepatic biliary duct dilatation seen. GALLBLADDER: Normal. The gallbladder is physiologically distended without evidence of stones, sludge, polyps, wall thickening or pericholecystic fluid. COMMON BILE DUCT: Normal in caliber measuring 0.45 cm in diameter. RIGHT KIDNEY: No hydronephrosis. No renal calculi or focal parenchymal lesions. The kidney measures there is anechoic cyst measuring 3.3 x 3.4 x 3.5 cm. cm in maximum dimension. FREE FLUID: None. US/US abdomen limited IMPRESSION: Complex fluid collection superior and anterior pancreas inferior to left hepatic lobe likely a recurrence of known left hepatic cysts. Recommend continued monitoring of this cyst. Small cyst upper pole right kidney. There is same size as noted on the previous CT abdomen exam 06/07/2021
== END 2021-07-08 09:35 | disposition home or self-care (01) ==
LOC: HO.HMGCX 09:34
PROVIDERS: PCP Internal Medicine; Visit Provider Physician Assistant
DX: R10.11 Right upper quadrant pain (principal)
CPT/HCPCS: 76705

== ENCOUNTER 2021-07-08 10:49 | Emergency (ER) | payer OTHER, SELFPAY ==
--- NOTE | ~2021-07-08 | CT_ITS ---
EXAMINATION: CT ABDOMEN AND PELVIS WITH CONTRAST CLINICAL INFORMATION: Acute abdominal pain. Region and confirmed. COMPARISON: June 07, 2021 TECHNIQUE: Multidetector volumetric images were obtained from the superior aspect of the liver through the pubic symphysis following administration 85 mL of Omnipaque 350 intravenous contrast. Sagittal and coronal reformatted images were obtained on the technologist's workstation. Oral contrast: No This CT examination was performed using dose optimization techniques as appropriate, variously including the following: *Automated exposure control *Adjustment of mA and/or kV according to patient size (this includes techniques or standardized protocols for targeted exams where dose is matched to indication/reason for exam; i.e. extremities or head) *Use of iterative reconstruction technique DLP: 682 mGy-cm FINDINGS: LUNG BASES: The visualized lung bases are unremarkable. No pleural or pericardial effusion. Heart normal size. LIVER, GALLBLADDER, AND BILIARY TREE: The large hepatic cyst within the left lobe has changed configuration in appearance and appears to have ruptured. There is some mild intrahepatic bile duct prominence but without dilatation. No focal solid mass is appreciated. There is a subcentimeter cyst seen within segment 6 of the liver. Status post cholecystectomy. PANCREAS: Unremarkable. SPLEEN: Unremarkable. ADRENAL GLANDS: Unremarkable. KIDNEYS AND URETERS: There are bilateral renal cysts present largest within the right kidney measuring 4.4 x 3.2 cm in size. No hydronephrosis is noted. No suspicious solid masses are seen. There is a 4 mm nonobstructing left upper pole calculus. BLADDER: Unremarkable. GASTROINTESTINAL TRACT: There is moderate ascites present throughout the abdomen. No free air is identified. No abscess collection with gas in it is appreciated. No dilated loops of large or small bowel are evident. There is some mild distention of a few loops of small bowel within the left abdomen to approximately 2.5 cm in diameter. No significant colonic abnormalities appreciated. There is a 4 mm appendicolith but no evidence of acute appendicitis. ABDOMINAL WALL: No significant hernia is appreciated. LYMPH NODES: No lymphadenopathy appreciated. VASCULAR: There is some mild calcified plaque seen in the aortoiliac system. Portal vein is patent. No abdominal aortic aneurysm. PELVIC VISCERA: There is free fluid within the pelvis. The left ovarian vein is prominent at 1.2 cm in diameter. OSSEOUS STRUCTURES: No suspicious destructive bony lesions identified. There is degenerative disc disease seen at the L5-S1 level. There is a posterior disc bulge seen at the L4-L5 level. There is a minimal grade 1 spondylolisthesis L4-L5. CT/CT abdomen pelvis w con IMPRESSION: Apparent rupture of large hepatic cyst with moderate ascites now evident. Left nephrolithiasis without evidence of obstructive uropathy. Prominent left ovarian vein measuring 1.2 cm in diameter. Fleischner guidelines were followed.
[2021-07-08 10:52] VITALS: BP 122/52; PULSE 80; RESP 19; TEMP 36.6; O2SAT 100; BMI 25.8
[2021-07-08 11:20] VITALS: BP 105/62; PULSE 75; RESP 20; TEMP 36.4; O2SAT 100
[2021-07-08 12:06] VITALS: BP 124/73; PULSE 82; RESP 20; O2SAT 98
[2021-07-08 12:21] LABS: Basophils Percent Auto 0.2 % (0-2); Eosinophils Percent Auto 0.1 % (0-4); Hematocrit 38.7 % (37.0-47.0); Hemoglobin 12.6 g/dl (12.0-16.0); Imm Gran Abs Auto 0.08 X10*3/uL (0.00-0.03); Imm Gran Pct Auto 0.4 % (0.0-0.4); Lymphocytes Absolute Auto 0.8 X10*3/uL (1.2-4.9); Lymphocytes Percent Auto 4.1 % (20-40); MANUAL DIFF FLAG SCAN; Mean Corpuscular HGB Conc 32.6 g/dl (31.0-35.0); Mean Corpuscular Hemoglobin 28.1 pg (27.0-33.0); Mean Corpuscular Volume 86.4 fL (80.0-98.0); Mean Platelet Volume 9.3 fL (9.4-12.3); Monocytes Absolute Auto 0.7 X10*3/uL (0.1-1.2); Monocytes Percent Auto 3.8 % (2-11); Neutrophils Absolute Auto 16.9 x10*3/uL (2.0-8.3); Neutrophils Percent Auto 91.4 % (45-73); Platelet Count 234 X10*3/uL (160-400); Red Blood Count 4.48 X10*6/uL (4.20-5.50); Red Cell Distribution Width 12.8 % (11.0-16.0); SCAN SMEAR FLAG 1; White Blood Count 18.5 X10*3/uL (4.8-10.8)
--- NOTE | 2021-07-08 13:13 | ED.ABDPAIN ---
HPI - Abdominal Pain General Chief Complaint: Abdominal Pain Stated Complaint: abd pain Time Seen by Provider: 07/08/21 12:45 Source: patient Mode of arrival: ambulatory Limitations: no limitations History of Present Illness HPI narrative: 56-year-old female with sudden severe abdominal pain that is worsening that started this morning. Patient went to urgent care earlier this morning, ultrasound visualized fluid collection in liver. Last month patient had IR drainage of cyst in her liver. She had no pain at that time. Starting this morning she has had sudden severe abdominal pain, with nausea. She has not been able to eat since last night. She has not had diarrhea but has felt tenesmus. The pain is constant with worsening spasms, mostly in her upper abdomen. Pain is 10/10 and is sharp and shooting. Patient had a cholecystectomy 2 years ago. Denies alcohol use denies NSAID use. No chest pain, shortness of breath, dysuria, hematuria, vaginal bleeding, vaginal discharge, focal neuro symptoms. Patient has history of Mrbql-Geiaihdjs-Napzv and has been vaccinated for COVID Related Data Home Medications Medication Instructions Recorded Confirmed Saccharomyces boulardii 250 mg 250 mg PO DAILY cap 07/08/21 capsule (Daily Probiotic (S. boulardii)) Allergies Allergy/AdvReac Type Severity Reaction Status Date / Time No Known Allergies Allergy Verified 07/08/21 09:18 [No Known Allergies*] Review of Systems Constitutional: Denies body ache(s), Denies chills, Denies fatigue, Denies fever(s), Denies headache(s), Denies malaise and Denies weakness Eyes: Denies diplopia Denies vertigo, Denies dizziness, Denies otalgia, Denies headache(s), Denies mouth pain, Denies post nasal drip, Denies sinus pain, Denies sinus pressure, Denies sore throat and Denies throat swelling Cardiovascular: Denies chest pain, Denies syncope, Denies leg edema, Denies lightheadedness, Denies Loss of Consciousness, Denies palpitations and Denies dyspnea Respiratory: Denies chest congestion, Denies cough and Denies dyspnea Gastrointestinal: Reports abdominal pain, Denies melena, Denies hematochezia, Reports tenesmus, Denies constipation, Denies diarrhea, Reports nausea and Denies vomiting Genitourinary: Reports no additional female genitourinary complaints Musculoskeletal: Reports no additional musculoskeletal complaints Denies confusion, Denies vertigo, Denies dizziness, Denies syncope, Denies headache(s) and Denies weakness Psychiatric: Denies anxiety, Denies confusion and Denies depression Endocrine: Denies fatigue and Denies palpitations Allergic/Immunologic: Denies throat swelling PMFSH Past Medical History Medical History Choledocholithiasis Cholelithiasis History of Oqrin-Medwexvez-Tmxuc (WPW) syndrome Surgical History History of cholecystectomy History of ERCP Family History Family History Mother T-cell lymphoma Father Dementia Heart disease Social History Social History Household Members: Family Housing: House Do you presently have visiting nurse or other home services: No Alcohol intake: never Patient Tobacco Use Status: Current everyday Tobacco user Tobacco use type: Cigarette Cigarette Packs Per Day: 1 Cigarettes Per Day: 20.0 Years Smoked: 27 e-Cigarette/Vaping Use: Never Used Second Hand Smoke Exposure: No Use of substances other than those prescribed or required for medical reasons: No Advance Directives: Yes Advance Directives on File: Yes Advance Directives Date on File: 06/08/21 Patient : No service: No Current occupational status: employed Gender identity: Female Physical Exam ED Vital Signs: Vital Signs - 24 hr 07/08/21 10:52 07/08/21 11:20 07/08/21 12:06 Temperature 98 F 97.6 F Pulse Rate 80 75 82 Respiratory Rate 19 20 20 Blood Pressure 122/52 L 105/62 124/73 Pulse Oximetry 100 100 98 07/08/21 14:14 07/08/21 15:57 Temperature 98.7 F 100.0 F Pulse Rate 105 H Respiratory Rate 15 16 Blood Pressure 147/75 H 116/68 Pulse Oximetry 99 96 BMI result Body Mass Index 25.8 Const General: alert, awake and acute distress moderate (d/t pain); No confusion Nutritional Appearance: obese Orientation/consciousness: patient oriented x3 and No confusion Limitations: no limitations HENMT Head: Yes normal to inspection, Yes No palpable skull fracture present, Yes normocephalic and Yes atraumatic Ears: hearing grossly normal bilaterally General nose exam: Normal external nose present Face and sinus: Yes normal facial exam Mouth: Normal oral and palatal mucosa present Throat: Yes posterior oropharynx normal Eyes Pupils: Equal, round and reactive pupils present EOM: EOMs intact bilaterally Neck Neck: Yes normal visual inspection, Yes full ROM, Yes no lymphadenopathy, Yes no meningeal signs and Yes trachea midline Resp Effort & Inspection: normal respiratory effort and able to speak in complete sentences Auscultation: clear to auscultation bilaterally, no crackles, no rales, no rhonchi and no wheezes Cardio Rate: regular rate Rhythm: regular rhythm Heart sounds: S1 normal heart sound present and S2 normal heart sound present GI Inspection: Yes Abdominal panniculus present and Yes obesity Palpation (GI): Firmness to palpation present (GI), Tenderness to palpation present (GI) (diffusely tender) with rebound tenderness and Guarding due to palpation present (GI) (all quadrants) General: Yes no CVA tenderness Back/Spine/Pelvis Back: no CVA tenderness Skin General skin exam: no rashes or lesions noted Neuro General: patient oriented x3, no meningeal signs, no focal motor deficits and No confusion Cranial nerves: Yes Equal, round and reactive pupils present Extrem General: Yes normal to inspection, Yes full ROM and Yes capillary refill normal Psych Appearance: grossly normal Mental Status: mental status grossly normal Speech and movement: Normal speech and movement present Affect: Anxious affect present Attitude: cooperative Course Course Course Narrative: 56-year-old female with sudden severe abdominal pain that is worsening that started this morning. Patient went to urgent care earlier this morning, ultrasound visualized fluid collection in liver. On exam, patient has stable vitals, mildly tachycardic most likely due to pain, abdomen exquisitely tender in all quadrants, distended, firm. Concern for surgical abdomen. She had patient get CT abdomen prior to chemistries returning. Labs remarkable for leukocytosis of 18.5. Chemistries unremarkable. Negative urine. CT abdomen shows rupture of large hepatic cyst with moderate ascites. Started Zosyn, got blood cultures, lactic, consulting surgery. Reevaluation(s) Reevaluation #1: On reexamination of patient, she tells me that last month she had a large liver cyst drained, , but she did not have pain. Her pain is better now with the morphine, only hurts if she moves or cough. David texted surgery, Dr Fernandez, who recommended transfer to a hepatobiliary facility where they have more expertise. David texted Dr Castelan, GI, who agreed. Pt will be transferred to [facility] ER, Dr Gonzales-Catarino accepting. CT/CT abdomen pelvis w con IMPRESSION: Apparent rupture of large hepatic cyst with moderate ascites now evident. ? Left nephrolithiasis without evidence of obstructive uropathy. ? Prominent left ovarian vein measuring 1.2 cm in diameter.? Ultrasound done earlier today at urgent care: US/US abdomen limited IMPRESSION: Complex fluid collection superior and anterior pancreas inferior to left hepatic lobe likely a recurrence of known left hepatic cysts. Recommend continued monitoring of this cyst. Small cyst upper pole right kidney. There is same size as noted on the previous CT abdomen exam 06/07/2021 MDM - Abdominal Pain Lab Data Result diagrams: 07/08/21 12:16 07/08/21 14:13 Labs: Lab Results 07/08/21 07/08/21 07/08/21 Range/Units 12:16 13:57 14:13 WBC 18.5 H (4.8-10.8) X10*3/uL RBC 4.48 (4.20-5.50) X10*6/uL Hgb 12.6 (12.0-16.0) g/dl Hct 38.7 (37.0-47.0) % MCV 86.4 (80.0-98.0) fL MCH 28.1 (27.0-33.0) pg MCHC 32.6 (31.0-35.0) g/dl RDW 12.8 (11.0-16.0) % Plt Count 234 D (160-400) X10*3/uL MPV 9.3 L (9.4-12.3) fL Immature Gran % (Auto) 0.4 (0.0-0.4) % Neut % (Auto) 91.4 H (45-73) % Lymph % (Auto) 4.1 L (20-40) % Fountain % (Auto) 3.8 (2-11) % Eos % (Auto) 0.1 (0-4) % Baso % (Auto) 0.2 (0-2) % Lymph # (Auto) 0.8 L (1.2-4.9) X10*3/uL Fountain # (Auto) 0.7 (0.1-1.2) X10*3/uL Eos # (Auto) 0.0 (0.0-0.4) X10*3/uL Baso # (Auto) 0.0 (0.0-0.2) X10*3/uL Abs Immat Gran (auto) 0.08 H (0.00-0.03) X10*3/uL Absolute Neuts (auto) 16.9 H (2.0-8.3) x10*3/uL Absolute Nucleated RBC 0.000 (0.0-0.012) X10*3/uL Nucleated RBC % (auto) 0.0 (0.0-0.2) /100WBC Smear Tech's Comments VERIFIED Sodium 140 (135-145) mmol/L Potassium 4.0 (3.3-5.1) mmol/L Chloride 109 H (96-108) mmol/L Carbon Dioxide 25 (22-29) mmol/L Anion Gap 10 L (12-20) BUN 14 (9-16) mg/dL Creatinine 0.67 (0.5-1.4) mg/dL Estim Creat Clear Calc 98.9 Estimated GFR > 60 Random Glucose 119 H (60-115) mg/dL Lactic Acid (0.5-2.0) mmol/L Calcium 9.1 (8.4-10.2) mg/dL Total Bilirubin 1.4 H (0.0-1.0) mg/dL Direct Bilirubin 0.5 (0.0-0.5) mg/dL AST 18 (5-31) U/L ALT 11 (0-31) U/L Alkaline Phosphatase 82 (39-117) U/L Total Protein 6.6 (6.5-8.0) g/dL Albumin 3.7 (3.5-5.0) g/dL Lipase 28 (8-78) U/L Urine Color YELLOW Urine Appearance CLOUDY Urine pH 7.0 (5.0-8.0) Ur Specific Sheldon <= 1.005 (1.005-1.025) Urine Protein NEG (NEG-TRACE) MG/DL Urine Glucose (UA) NEG (NEG) MG/DL Urine Ketones 15 (NEG) MG/DL Urine Blood NEG (NEG) Urine Nitrite NEG (NEG) Ur Leukocyte Esterase NEG (NEG) COVID-19 (CHELITA) (Negative) COVID-19 Clin Com 07/08/21 07/08/21 Range/Units 16:14 16:14 WBC (4.8-10.8) X10*3/uL RBC (4.20-5.50) X10*6/uL Hgb (12.0-16.0) g/dl Hct (37.0-47.0) % MCV (80.0-98.0) fL MCH (27.0-33.0) pg MCHC (31.0-35.0) g/dl RDW (11.0-16.0) % Plt Count (160-400) X10*3/uL MPV (9.4-12.3) fL Immature Gran % (Auto) (0.0-0.4) % Neut % (Auto) (45-73) % Lymph % (Auto) (20-40) % Fountain % (Auto) (2-11) % Eos % (Auto) (0-4) % Baso % (Auto) (0-2) % Lymph # (Auto) (1.2-4.9) X10*3/uL Fountain # (Auto) (0.1-1.2) X10*3/uL Eos # (Auto) (0.0-0.4) X10*3/uL Baso # (Auto) (0.0-0.2) X10*3/uL Abs Immat Gran (auto) (0.00-0.03) X10*3/uL Absolute Neuts (auto) (2.0-8.3) x10*3/uL Absolute Nucleated RBC (0.0-0.012) X10*3/uL Nucleated RBC % (auto) (0.0-0.2) /100WBC Smear Tech's Comments Sodium (135-145) mmol/L Potassium (3.3-5.1) mmol/L Chloride (96-108) mmol/L Carbon Dioxide (22-29) mmol/L Anion Gap (12-20) BUN (9-16) mg/dL Creatinine (0.5-1.4) mg/dL Estim Creat Clear Calc Estimated GFR Random Glucose (60-115) mg/dL Lactic Acid 0.8 (0.5-2.0) mmol/L Calcium (8.4-10.2) mg/dL Total Bilirubin (0.0-1.0) mg/dL Direct Bilirubin (0.0-0.5) mg/dL AST (5-31) U/L ALT (0-31) U/L Alkaline Phosphatase (39-117) U/L Total Protein (6.5-8.0) g/dL Albumin (3.5-5.0) g/dL Lipase (8-78) U/L Urine Color Urine Appearance Urine pH (5.0-8.0) Ur Specific Sheldon (1.005-1.025) Urine Protein (NEG-TRACE) MG/DL Urine Glucose (UA) (NEG) MG/DL Urine Ketones (NEG) MG/DL Urine Blood (NEG) Urine Nitrite (NEG) Ur Leukocyte Esterase (NEG) COVID-19 (CHELITA) Negative (Negative) COVID-19 Clin Com See Note Discharge Plan Discharge Clinical Impression: Peritonitis, Liver cyst, Abdominal ascites Patient Disposition: Xfer [facility] Transfer Details: [facility] ER, accepting M[place] Prescriptions: No Action Saccharomyces boulardii [Daily Probiotic (S. boulardii)] 250 mg capsule 250 mg PO DAILY 0RF
[2021-07-08 13:16] LABS: SLIDE REVIEW VERIFIED
[2021-07-08] MEDS: iohexoL 350 MG/ML 100 ML INFUS..BTL IV (13:29)
[2021-07-08] MEDS: Morphine Sulfate 4 MG/ML CARTRIDGE IVPUSH (13:36)
[2021-07-08] MEDS: 0.9 % Sodium Chloride 1,000 ML 999 ML IV (13:37)
[2021-07-08] MEDS: ondansetron HCL 4 MG/2 ML VIAL IVPUSH (13:37)
[2021-07-08 14:14] VITALS: BP 147/75; PULSE 105; RESP 15; TEMP 37.1; O2SAT 99
[2021-07-08 14:14] LABS: Appearance Urine CLOUDY; Color Urine YELLOW; Glucose Urine UA NEG (NEG); Leukocyte Esterase Urine NEG (NEG); Nitrite Urine NEG (NEG); Specific Gravity - Urine <= 1.005 (1.005-1.025); Urine Blood NEG (NEG); Urine Ketones 15 MG/DL (NEG); Urine Protein NEG (NEG-TRACE)
[2021-07-08 14:40] LABS: Alanine Aminotransferase 11 U/L (0-31); Albumin Level 3.7 g/dL (3.5-5.0); Alkaline Phosphatase 82 U/L (39-117); Anion Gap 10 (12-20); Aspartate Amino Transferase 18 U/L (5-31); Bilirubin Direct 0.5 mg/dL (0.0-0.5); Bilirubin Total 1.4 mg/dL (0.0-1.0); Blood Urea Nitrogen 14 mg/dL (9-16); Calcium 9.1 mg/dL (8.4-10.2); Carbon Dioxide 25 mmol/L (22-29); Chloride 109 mmol/L (96-108); Creatinine Clr Calc Pharmacy 98.9; Estimated Glomerular Filt Rate > 60; Glucose Random 119 mg/dL (60-115); Lipase 28 U/L (8-78); Sodium 140 mmol/L (135-145); Total Protein 6.6 g/dL (6.5-8.0)
--- NOTE | 2021-07-08 15:04 | PC.NURSE ---
pt reports feeling better, the pain on the right upper sided intermittent now and the lower abd also better but pain only with palpation or when coughing
[2021-07-08 15:57] VITALS: BP 116/68; RESP 16; TEMP 37.8; O2SAT 96
[2021-07-08] MEDS: Piperacillin Sodium/Tazobactam 4.5 GM in 0.9 % Sodium Chloride 100 ML IV (16:26)
[2021-07-08 16:33] LABS: Lactic Acid 0.8 mmol/L (0.5-2.0)
[2021-07-08 16:37] LABS: COVID-19 Test Negative (Negative)
--- NOTE | 2021-07-08 18:05 | PC.NURSE ---
report given to huy hussein at [facility]
== END 2021-07-08 18:08 | disposition short-term general hospital (02) ==
PROVIDERS: Physician Assistant; Emergency Provider Emergency Medicine Emergency Medical Services; PCP Internal Medicine
DX: R18.8 Other ascites (principal); K65.9 Peritonitis, unspecified; K76.89 Other specified diseases of liver; R10.9 Unspecified abdominal pain; F17.210 Nicotine dependence, cigarettes, uncomplicated; Z20.822 Contact with and (suspected) exposure to COVID-19; Z79.899 Other long term (current) drug therapy; Z71.6 Tobacco abuse counseling
CPT/HCPCS: 36415; 74177; 80048; 80076; 81003; 83605; 83690; 85025; 87040; 87635; 96361; 96365; 96375; 99285; J2270; J2405; J2543; Q9967

== ENCOUNTER 2021-10-02 10:24 | Outpatient (REF) | payer OTHER, SELFPAY ==
--- NOTE | ~2021-10-02 | MM_ITS ---
EXAMINATION: MM SCREENING DIGITAL BREAST TOMOSYNTHESIS, BILATERAL CLINICAL INFORMATION: Screening. Asymptomatic. The lifetime risk of breast cancer based on the Tyrer-Cuzick Model is 4%. COMPARISON: Mammography: 09/19/2020; outside exam 05/06/2013 ([facility]) TECHNIQUE: Digital breast tomosynthesis is performed in both the craniocaudal and mediolateral oblique views along with computer-aided detection (CAD). Synthesized 2D images are generated from the tomosynthesis. FINDINGS: There are scattered areas of fibroglandular density (ACR BI-RADS breast composition Category b). There are no significant masses, abnormal calcifications, or other abnormalities. Parenchymal pattern is similar to prior studies. Incidental intramammary node again seen posterior upper outer left breast. There are some small round and predominantly dermal calcifications again seen posterior breasts. No significant changes. MM/MM tomosynthesis screening BI IMPRESSION: No mammographic evidence of malignancy. ASSESSMENT: BI-RADS 2: Benign RECOMMENDATION: Routine annual mammography screening. This patient's information was entered into a reminder system with a target due date for their next mammogram.
== END 2021-10-02 10:25 | disposition home or self-care (01) ==
LOC: HO.MAMMO 10:24
PROVIDERS: PCP Internal Medicine; Visit Provider Internal Medicine
DX: Z12.31 Encounter for screening mammogram for malignant neoplasm of breast (principal)
CPT/HCPCS: 77063; 77067

== ENCOUNTER → 2021-10-07 15:07 | Outpatient (BNVA) | payer OTHER, SELFPAY | PROVIDERS: PCP Internal Medicine; Referring Provider Internal Medicine; Visit Provider Surgery | DX: K76.89 Other specified diseases of liver (principal) | CPT/HCPCS: 99202 ==

== ENCOUNTER 2021-10-25 16:05 | Outpatient (REF) | payer OTHER, SELFPAY ==
--- NOTE | ~2021-10-25 | CT_ITS ---
EXAMINATION: CT ABDOMEN AND PELVIS WITHOUT CONTRAST CLINICAL INFORMATION: Follow-up liver cyst. COMPARISON: Previous CT of the abdomen and pelvis June 2021 and abdominal ultrasound June 2021. TECHNIQUE: Multidetector volumetric imaging was performed from the superior aspect of the liver through the pubic symphysis. Sagittal and coronal reformatted images were obtained on the technologist's workstation. This CT examination was performed using dose optimization techniques as appropriate, variously including the following: *Automated exposure control *Adjustment of mA and/or kV according to patient size (this includes techniques or standardized protocols for targeted exams where dose is matched to indication/reason for exam; i.e. extremities or head) *Use of iterative reconstruction technique DLP: 473 mGy-cm FINDINGS: LUNG BASES: The visualized lung bases are unremarkable. LIVER, GALLBLADDER, AND BILIARY TREE: There is a large cyst seen in the left lobe of the liver. This measures 11.5 x 14 x 13 cm in AP transverse and longitudinal dimension. The liver is otherwise unremarkable. The gallbladder has been removed. There is no biliary duct dilatation. PANCREAS: There is mass effect on the pancreas from the large liver cyst. The pancreas is otherwise normal. SPLEEN: Unremarkable. ADRENAL GLANDS: Unremarkable. KIDNEYS AND URETERS: There is a 3 x 4 cm cyst in the upper pole of the right kidney. There are small left renal stones, largest measuring 3 mm in the upper pole of the left kidney. BLADDER: Unremarkable. GASTROINTESTINAL TRACT: There is mild diverticulosis of the colon. Small and large bowel is otherwise unremarkable. The appendix is unremarkable. There is mass effect on the stomach from the large liver cyst. The stomach is otherwise unremarkable. ABDOMINAL WALL: Small umbilical or periumbilical hernia containing fat. LYMPH NODES: Normal. VASCULAR: Atherosclerotic disease. No hernia. PELVIC VISCERA: Unremarkable. OSSEOUS STRUCTURES: Degenerative changes of the spine and hip joints, left greater than right. CT/CT abdomen pelvis wo con IMPRESSION: Large 11.5 x 14 x 13 cm cyst in the left lobe of the liver causing mass effect on the stomach and pancreas. Right renal cysts. Small left renal stones. Mild diverticulosis of the colon. Fleischner guidelines were followed.
== END 2021-10-25 16:06 | disposition home or self-care (01) ==
LOC: HO.CT 16:05
PROVIDERS: Visit Provider Surgery
DX: K76.89 Other specified diseases of liver (principal)
CPT/HCPCS: 74176

== ENCOUNTER → 2021-11-01 13:42 | Outpatient (BNVA) | payer OTHER, SELFPAY | PROVIDERS: PCP Internal Medicine; Visit Provider Surgery | DX: K76.89 Other specified diseases of liver (principal) | CPT/HCPCS: 36415; 85610; 99212 ==

== ENCOUNTER 2021-11-01 14:36 | Outpatient (REF) | payer OTHER, SELFPAY ==
[2021-11-01 15:10] LABS: INTERNATIONAL NORM RATIO 1.1 (0.9-1.1); Prothrombin Time 12.6 SEC (9.9-13.0)
== END 2021-11-01 14:37 | disposition home or self-care (01) ==
LOC: HO.LAB 14:36
PROVIDERS: PCP Internal Medicine; Visit Provider Surgery
DX: Z13.89 Encounter for screening for other disorder (principal)
CPT/HCPCS: 36415; 85610

== ENCOUNTER 2021-11-11 11:41 | Day surgery (SDC) | payer OTHER, SELFPAY ==
--- NOTE | ~2021-11-11 | CT_ITS ---
PROCEDURE: CT GUIDED ABSCESS DRAINAGE CLINICAL INFORMATION: Large hepatic cysts. COMPARISON: 10/25/2021 and studies dating back to 09/11/2016. TECHNIQUE: CT fluoroscopic guided hepatic cyst drainage. This CT examination was performed using dose optimization techniques as appropriate, variously including the following: *Automated exposure control *Adjustment of mA and/or kV according to patient size (this includes techniques or standardized protocols for targeted exams where dose is matched to indication/reason for exam; i.e. extremities or head) *Use of iterative reconstruction technique DLP: 324 mGy-cm FINDINGS: Informed consent was obtained from the patient prior to the procedure. During this process, the procedure and potential alternatives were explained, along with the intended outcome and benefits. The risks of the procedure, as well as the risk of not doing the procedure, were discussed. The patient was given the opportunity to ask questions regarding the procedure and appeared competent to make medical decisions. A signed consent form which documents this discussion was placed in the medical record. Using sterile technique and conscious sedation due to patient's pain prior to the procedure, a 4 Vietnamese Yueh needle was directed into the hepatic fluid collection from an anterior approach. Guidewire was placed and over the guidewire a 6.2 Vietnamese drainage catheter was placed. A total of 1.6 L of greenish-brown tinged fluid was removed without difficulty. No fluid collection remained after drainage and the catheter was removed. There is noted to be left nephrolithiasis. There is a 4.1 cm right renal cyst. CT/CT guided drainage IMPRESSION: CT fluoroscopic-guided hepatic cyst drainage with removal of 1.6 L of fluid with no residual fluid appreciated.
[2021-11-11 12:18] LABS: MANUAL DIFF FLAG NO
[2021-11-11 12:20] LABS: Basophils Percent Auto 0.6 % (0-2); Eosinophils Absolute Auto 0.1 X10*3/uL (0.0-0.4); Eosinophils Percent Auto 1.5 % (0-4); Hematocrit 37.5 % (37.0-47.0); Hemoglobin 11.9 g/dl (12.0-16.0); Imm Gran Abs Auto 0.01 X10*3/uL (0.00-0.03); Imm Gran Pct Auto 0.1 % (0.0-0.4); Lymphocytes Absolute Auto 1.3 X10*3/uL (1.2-4.9); Lymphocytes Percent Auto 19.2 % (20-40); Mean Corpuscular HGB Conc 31.7 g/dl (31.0-35.0); Mean Corpuscular Hemoglobin 27.5 pg (27.0-33.0); Mean Corpuscular Volume 86.8 fL (80.0-98.0); Mean Platelet Volume 9.5 fL (9.4-12.3); Monocytes Absolute Auto 0.6 X10*3/uL (0.1-1.2); Neutrophils Absolute Auto 4.8 x10*3/uL (2.0-8.3); Neutrophils Percent Auto 70.6 % (45-73); Platelet Count 159 X10*3/uL (160-400); Red Blood Count 4.32 X10*6/uL (4.20-5.50); Red Cell Distribution Width 13.6 % (11.0-16.0); White Blood Count 6.9 X10*3/uL (4.8-10.8)
[2021-11-11 12:26] LABS: INTERNATIONAL NORM RATIO 1.1 (0.9-1.1)
[2021-11-11 12:29] LABS: Partial Thromboplastin Time 31.9 SEC (24.1-38.0)
[2021-11-11 12:32] VITALS: BMI 25.1
[2021-11-11 12:33] VITALS: BP 145/82; PULSE 79; RESP 16; TEMP 36.4; O2SAT 97
[2021-11-11 15:20] VITALS: BP 117/60; PULSE 76; RESP 16; TEMP 36.8; O2SAT 98
[2021-11-11 15:35] VITALS: BP 111/57; PULSE 80; RESP 18; O2SAT 98
[2021-11-11 15:50] VITALS: BP 116/61; PULSE 79; RESP 16; O2SAT 99
[2021-11-11 16:17] VITALS: BP 106/72; PULSE 74; RESP 18; TEMP 36.7; O2SAT 99
== END 2021-11-11 16:35 | disposition home or self-care (01) ==
PROVIDERS: Radiology Diagnostic Radiology; PCP Internal Medicine; Visit Provider Radiology Diagnostic Radiology
DX: K75.0 Abscess of liver (principal); K76.89 Other specified diseases of liver; N20.0 Calculus of kidney; N28.1 Cyst of kidney, acquired
CPT/HCPCS: 36415; 49405; 75989; 85025; 85610; 85730; 88112; 88305; 99152; 99153; C1729; J2250; J3010

== ENCOUNTER → 2021-12-01 15:16 | Outpatient (BNVA) | payer OTHER, SELFPAY | PROVIDERS: PCP Internal Medicine; Visit Provider Surgery | DX: K76.89 Other specified diseases of liver (principal) | CPT/HCPCS: 99212 ==

== ENCOUNTER → 2022-02-03 15:22 | Outpatient (BNVA) | payer OTHER, SELFPAY | PROVIDERS: PCP Internal Medicine; Visit Provider Surgery | DX: K76.89 Other specified diseases of liver (principal) | CPT/HCPCS: 36415; 85610; 99212 ==

== ENCOUNTER 2022-02-03 16:16 | Outpatient (REF) | payer OTHER, SELFPAY ==
[2022-02-03 17:22] LABS: INTERNATIONAL NORM RATIO 1.1 (0.9-1.1); Prothrombin Time 12.4 SEC (10.0-13.1)
== END 2022-02-03 16:17 | disposition home or self-care (01) ==
LOC: HO.LAB 16:16
PROVIDERS: Visit Provider Surgery
DX: Z13.89 Encounter for screening for other disorder (principal)
CPT/HCPCS: 36415; 85610

== ENCOUNTER 2022-02-24 12:02 | Day surgery (SDC) | payer OTHER, SELFPAY ==
--- NOTE | ~2022-02-24 | US_ITS ---
EXAMINATION: ULTRASOUND DRAIN CLINICAL INFORMATION: Recurrent liver cyst COMPARISON: Previous CT scan and CT-guided drainage October 2021 TECHNIQUE: Procedure and risks and benefits including bleeding and infection were discussed with the patient and informed consent was obtained. The midline upper abdomen was prepped and draped in the usual sterile fashion. The skin and soft tissues were anesthetized with 1% lidocaine plain. Using ultrasound guidance and a 5 Bahraini rapid centesis catheter, access to the cyst was obtained. 1.9 L of olguin slightly turbid fluid was removed. Specimen was sent for cytology. FINDINGS: There is a large 18 x 17 x 14 cm cyst arising from the left lobe of the liver that was targeted for drainage. Postprocedure imaging demonstrated no residual cyst/fluid. US/US drain visceral IMPRESSION: Ultrasound-guided liver cyst drainage.
[2022-02-24 12:25] VITALS: BMI 24.7
[2022-02-24 12:34] LABS: MANUAL DIFF FLAG NO
[2022-02-24 12:38] LABS: Basophils Percent Auto 0.5 % (0-2); Eosinophils Absolute Auto 0.1 X10*3/uL (0.0-0.4); Eosinophils Percent Auto 1.5 % (0-4); Hematocrit 37.2 % (37.0-47.0); Hemoglobin 12.2 g/dl (12.0-16.0); Imm Gran Abs Auto 0.02 X10*3/uL (0.00-0.03); Imm Gran Pct Auto 0.3 % (0.0-0.4); Lymphocytes Absolute Auto 1.3 X10*3/uL (1.2-4.9); Lymphocytes Percent Auto 21.5 % (20-40); Mean Corpuscular HGB Conc 32.8 g/dl (31.0-35.0); Mean Corpuscular Hemoglobin 28.2 pg (27.0-33.0); Mean Corpuscular Volume 85.9 fL (80.0-98.0); Mean Platelet Volume 9.6 fL (9.4-12.3); Monocytes Absolute Auto 0.5 X10*3/uL (0.1-1.2); Monocytes Percent Auto 8.7 % (2-11); Neutrophils Absolute Auto 4.1 x10*3/uL (2.0-8.3); Neutrophils Percent Auto 67.5 % (45-73); Platelet Count 172 X10*3/uL (160-400); Red Blood Count 4.33 X10*6/uL (4.20-5.50); White Blood Count 6.1 X10*3/uL (4.8-10.8)
[2022-02-24 12:42] LABS: INTERNATIONAL NORM RATIO 1.1 (0.9-1.1); Prothrombin Time 12.1 SEC (10.0-13.1)
[2022-02-24 12:45] LABS: Partial Thromboplastin Time 33.5 SEC (26.0-36.4)
--- NOTE | 2022-02-24 14:23 | HO.RADPN ---
RADIOLOGY Narrative Narrative: Using US guidance and 5 Fr catheter, 1.9 L olguin colored fluid drained from liver cyst. Specimen sent for cytology.
[2022-02-24] MEDS: Lidocaine HCl 1 % MPF 5 ML VIAL SUBCUT (14:29)
[2022-02-24 14:40] VITALS: BP 119/63; PULSE 72; RESP 14; TEMP 37.1; O2SAT 100
[2022-02-24 15:00] VITALS: BP 123/48; PULSE 81; RESP 16; TEMP 37.1; O2SAT 100
== END 2022-02-24 15:25 | disposition home or self-care (01) ==
PROVIDERS: Radiology Diagnostic Radiology; PCP Internal Medicine; Visit Provider Radiology Diagnostic Radiology
DX: K76.89 Other specified diseases of liver (principal)
CPT/HCPCS: 36415; 49405; 85025; 85610; 85730; 88112; 88305

== ENCOUNTER 2022-10-15 10:12 | Outpatient (REF) | payer OTHER, SELFPAY ==
--- NOTE | ~2022-10-15 | MM_ITS ---
EXAMINATION: MM SCREENING DIGITAL BREAST TOMOSYNTHESIS, BILATERAL CLINICAL INFORMATION: Screening. Asymptomatic. The lifetime risk of breast cancer based on the Tyrer-Cuzick Model is 6%. COMPARISON: Mammography: 10/02/2021, 09/19/2020; outside mammography 05/06/2013 ([facility]). TECHNIQUE: Digital breast tomosynthesis is performed in both the craniocaudal and mediolateral oblique views along with computer-aided detection (CAD). Synthesized 2D images are generated from the tomosynthesis. FINDINGS: There are scattered areas of fibroglandular density (ACR BI-RADS breast composition Category b). There are no significant masses, abnormal calcifications, or other abnormalities. No architectural abnormality or developing density or significant change from prior studies. The axilla are unremarkable. There are small round, and dermal calcifications again noted bilateral posterior medial breasts. Skin contours are smooth. MM/MM tomosynthesis screening BI IMPRESSION: No mammographic evidence of malignancy. ASSESSMENT: BI-RADS 2: Benign RECOMMENDATION: Routine annual mammography screening. This patient's information was entered into a reminder system with a target due date for their next mammogram.
== END 2022-10-15 10:13 | disposition home or self-care (01) ==
LOC: HO.MAMMO 10:12
PROVIDERS: PCP Internal Medicine; Visit Provider Internal Medicine
DX: Z12.31 Encounter for screening mammogram for malignant neoplasm of breast (principal)
CPT/HCPCS: 77063; 77067

== ENCOUNTER 2023-02-10 12:17 | Outpatient (AMB) | payer OTHER, SELFPAY ==
--- NOTE | 2023-02-10 12:20 | MHC.PC.OV ---
Vital Signs 02/10/23 12:21 Height 5 ft 10 in Weight 178 lb 2 oz BMI 25.6 BP 122/78 Blood Pressure Location Rt brachial Position Sitting Pulse 77 Pulse Source Pulse Oximeter Pulse Oximetry (%) 90 L Oxygen Delivery Method Room Air Intake Visit Reasons: PE Allergies No Known Allergies [No Known Allergies*] Allergy (Verified 02/10/23 12:21) Medication List - Last Reconciled 02/10/23 by Odilon Cardenas MD [Tylenol PRN] Tobacco use date assessed: 02/10/23 Dental Screening Dental Screen Date: 02/10/23 Did you have a dental visit in the last 12 months?: No Did you have a dental problem in the last 6 months where you did not have access to dental care?: No Was dental information given to patient?: Patient declined HPI PE HPI Details Patient is 57-year-old female came in today for physical examination Patient have a history of recurrent liver cyst last time brain was end of last year by Dr. Dillon pham [facility]. Blood pressure is stable heart rate is stable weight is 178 lb BMI is 25.6 I have ordered labs to be done fasting Tobacco abuse: Advised patient to stop as soon as possible, she is smoking half pack daily Mammogram was September of this year , patient declined breast exam today Pap smear: Patient is established with [facility] however has not seen them in at least 2 or 3 years patient says that she will call in book appointment herself Colonoscopy: Patient has been seeing Gastroenterology [facility], has not done colonoscopy I have ordered Cologuard for her [facility] Medical History Liver cyst Cholelithiasis Choledocholithiasis History of Nahub-Yfgmnwlht-Cwiqd (WPW) syndrome Surgical History History of cholecystectomy History of ERCP Family History Mother T-cell lymphoma Father Dementia Heart disease Other Mental health disorder Social History Household Members: Family Housing: House Do you presently have visiting nurse or other home services: No Alcohol intake: never Patient Tobacco Use Status: Current everyday Tobacco user Tobacco use type: Cigarette Cigarette Packs Per Day: 1 Cigarettes Per Day: 20.0 Years Smoked: 27 e-Cigarette/Vaping Use: Never Used Second Hand Smoke Exposure: No Advance Directives Date on File: 06/08/21 service: No Current occupational status: employed Gender identity: Female Cognitive needs: No Vision needs: Yes Questionnaire PHQ-9 Over the last 2 weeks, how often have you been bothered by any of the following problems? 1. Little interest or pleasure in doing things: not at all 2. Feeling down, depressed, or hopeless: not at all 3. Trouble falling or staying asleep, or sleeping too much: nearly every day 4. Feeling tired or having little energy: more than half the days 5. Poor appetite or overeating: not at all 6. Feeling bad about yourself - or that you are a failure or have let yourself or your family down: not at all 7. Trouble concentrating on things, such as reading the newspaper or watching television: not at all 8. Moving or speaking so slowly that other people could have noticed. Or the opposite - being so fidgety or restless that you have been moving around a lot more than usual: not at all 9. Thoughts that you would be better off or of hurting yourself in some way: not at all Total score: 5 Depression Screening Interpretation: Negative 42861 - PHQ-9 Billing: Yes Source: Developed by Drs. Michael Maher, Jennifer Feliz, Price Klein and colleagues, with an educational flor from [employer]. Thrive Questionnaire Date Thrive assessed: 02/10/23 I am a: Patient What is your living situation today?: I have a steady place to live Within the past 12 months, did the food you bought not last and you didn't have the money to get more?: Never true Within the past 12 months, did you worry whether your food would run out before you got money to buy more?: Never true Do you have trouble paying for medicines?: No Do you have trouble getting transportation to medical appointments?: No Do you have trouble paying your heating and electricity bill?: No Do you have trouble taking care of your child, family member or friend?: No Do you have trouble with day-to-day activities such as bathing, preparing meals, shopping, managing finances, etc.?: No Are you currently unemployed and looking for a job?: No Are you interested in more education?: No AUDIT C Alcohol Use Questionnaire (AUDIT-C) 1. How often do you have a drink containing alcohol?: Never 3. How often do you have six or more drinks on one occasion?: Never Total Score: 0 Score Reviewed/Action Taken: Yes DARON-7 AMB Questionnaire DARON-7 Date DARON - 7 assessed: 02/10/23 Feeling nervous, anxious, or on edge: 0 = Not at all Not being able to stop or control worryin = Not at all Worrying too much about different things: 0 = Not at all Trouble relaxin = Not at all Being so restless that it is hard to sit still: 0 = Not at all Becoming easily annoyed or irritable: 0 = Not at all Feeling afraid as if something awful might happen: 0 = Not at all Total DARON-7 score (0-4 normal; 5-9 mild; 10-14 moderate; 15-21 severe): 0 Source: Developed by Drs. Michael Maher, Jennifer Feliz, Price Klein and colleagues, with an educational flor from [employer]. DARON-7 Assessment Billing DARON-7 Assessment Tool: DARON-7 Assessment 00559 Review of Systems Const Denies chills, Denies fever(s) and Denies headache(s) Eyes Denies blurry vision ENT Denies headache(s), Denies nasal discharge, Denies nasal obstruction, Denies odynophagia and Denies sinus pain Card Denies chest pain at rest and Denies chest pain with activity Resp Denies cough and Denies hemoptysis GI Denies diarrhea, Denies odynophagia, Denies vomiting and Denies hematemesis Reports as per HPI Musc Denies abnormal gait Skin/Breast Reports as per HPI Neuro Denies Neuro-related abnormal movements, Denies Abnormal speech present, Denies abnormal gait, Denies headache(s) and Denies Sensory deficit (Neuro) Psych Denies mood swings and Denies paranoia Endo Reports as per HPI Garcia/Lymph Reports as per HPI Aller/Immun Reports as per HPI Physical exam (Primary Care) Vital Signs: Last Vital Signs Pulse 77 02/10/23 12:21 BP 122/78 02/10/23 12:21 Pulse Ox 90 L 02/10/23 12:21 Oxygen Delivery Method Room Air 02/10/23 12:21 BMI result Body Mass Index 25.6 Tobacco/Smoking Status: Tobacco use Status Tobacco use date assessed 02/10/23 02/10/23 12:24 Patient Tobacco Use Status Current everyday Tobacco 02/10/23 12:24 Tobacco use type Cigarette 02/10/23 12:24 e-Cigarette/Vaping Use Never Used 02/10/23 12:24 PHQ-9: PHQ-9 Score PHQ-9: Total score 5 02/10/23 12:46 Depression Screening Interpretation: Negative Thrive Assessment: Date of Thrive Assessment Date Thrive assessed 02/10/23 02/10/23 12:46 Const General: cooperative, comfortable and no acute distress Orientation/consciousness: patient oriented x3 HENMT Head: Yes normocephalic and Yes atraumatic Eyes General: appearance normal, both eyes and all related structures Pupils: Equal, round and reactive pupils present EOM: EOMs intact bilaterally Neck Neck: Yes supple and No lymphadenopathy Thyroid: Thyroid normal Lymphatic: no lymphadenopathy noted Resp Effort & Inspection: normal respiratory effort and able to speak in complete sentences Auscultation: clear to auscultation bilaterally Cardio Heart sounds: S1 normal heart sound present and S2 normal heart sound present GI Palpation (GI): Soft to palpation and nontender Auscultation: normal bowel sounds General: Yes no CVA tenderness Back/Spine/Pelvis Back: no CVA tenderness Skin General skin exam: elasticity normal and turgor normal Neuro General: patient oriented x3 and gait normal Cranial nerves: Yes Equal, round and reactive pupils present Speech: No Abnormal speech present Sensory Exam: No Sensory deficit (Neuro) Coordination: tandem gait normal and Romberg test negative Extrem General: Yes normal exam except as noted and No edema Assessment and Plan Assessment & Plan (1) Encounter for general adult medical examination with abnormal findings: Code(s): Z00.01 - Encounter for general adult medical examination with abnormal findings (2) Tobacco abuse: Code(s): Z72.0 - Tobacco use (3) Cold intolerance: Code(s): R68.89 - Other general symptoms and signs Plan Patient is 57-year-old female came in today for physical examination Patient have a history of recurrent liver cyst last time brain was end of last year by Dr. Dillon pham [facility]. Blood pressure is stable heart rate is stable weight is 178 lb BMI is 25.6 I have ordered labs to be done fasting Patient is complaining of feeling cold all the time I have ordered TSH level as well Tobacco abuse: Advised patient to stop as soon as possible, she is smoking half pack daily Mammogram was September of this year , patient declined breast exam today Pap smear: Patient is established with [facility] however has not seen them in at least 2 or 3 years patient says that she will call in book appointment herself Colonoscopy: Patient has been seeing [facility]enter[facility], has not done colonoscopy I have ordered Cologuard for her Orders: Orders Comprehensive [place]. Panel Fast Today K76.89 - Other specified diseases of liver, R79.89 - Other specified abnormal findings of blood chemistry, Z00.01 - Encounter for general adult medical examination with abnormal findings, Z72.0 - Tobacco use Lipid Panel Today K76.89 - Other specified diseases of liver, R79.89 - Other specified abnormal findings of blood chemistry, Z00.01 - Encounter for general adult medical examination with abnormal findings, Z72.0 - Tobacco use TSH reflex Free T4 Today R68.89 - Other general symptoms and signs Complete Blood Count Auto Diff Today K76.89 - Other specified diseases of liver, R79.89 - Other specified abnormal findings of blood chemistry, Z00.01 - Encounter for general adult medical examination with abnormal findings, Z72.0 - Tobacco use Referrals Cologuard Test Z12.11 - Encounter for screening for malignant neoplasm of colon, Z12.12 - Encounter for screening for malignant neoplasm of rectum Coding Level of Care Code Est Pt Prev Care 40-64y(26519) Diagnoses Encounter for general adult medical examination with abnormal findings Z00.01 Tobacco abuse Z72.0 Cold intolerance R68.89 Additional Codes DARON-7 Assessment Billing - DARON-7 Assessment Tool: DARON-7 Assessment [id number] ([id number])
[2023-02-10 12:21] VITALS: BP 122/78; PULSE 77; O2SAT 90; BMI 25.6
== END 2023-02-10 16:00 | disposition home or self-care (01) ==
PROVIDERS: Visit Provider Internal Medicine
DX: Z00.01 Encounter for general adult medical examination with abnormal findings (principal); Z72.0 Tobacco use; R68.89 Other general symptoms and signs
CPT/HCPCS: 99396

== ENCOUNTER 2023-02-15 07:59 | Outpatient (REF) | payer OTHER, SELFPAY ==
[2023-02-15 11:07] LABS: MANUAL DIFF FLAG NO
[2023-02-15 11:35] LABS: Basophils Percent Auto 0.5 % (0-2); Eosinophils Absolute Auto 0.1 X10*3/uL (0.0-0.4); Eosinophils Percent Auto 1.2 % (0-4); Hematocrit 43.3 % (37.0-47.0); Hemoglobin 14.1 g/dl (12.0-16.0); Imm Gran Abs Auto 0.01 X10*3/uL (0.00-0.03); Imm Gran Pct Auto 0.2 % (0.0-0.4); Lymphocytes Absolute Auto 1.2 X10*3/uL (1.2-4.9); Lymphocytes Percent Auto 20.7 % (20-40); Mean Corpuscular HGB Conc 32.6 g/dl (31.0-35.0); Mean Corpuscular Hemoglobin 28.5 pg (27.0-33.0); Mean Corpuscular Volume 87.5 fL (80.0-98.0); Monocytes Absolute Auto 0.5 X10*3/uL (0.1-1.2); Monocytes Percent Auto 8.5 % (2-11); Neutrophils Percent Auto 68.9 % (45-73); Platelet Count 231 X10*3/uL (160-400); Red Blood Count 4.95 X10*6/uL (4.20-5.50); Red Cell Distribution Width 12.3 % (11.0-16.0); White Blood Count 5.8 X10*3/uL (4.8-10.8)
[2023-02-15 12:16] LABS: Alanine Aminotransferase 12 U/L (0-31); Albumin Level 4.3 g/dL (3.5-5.0); Alkaline Phosphatase 99 U/L (39-117); Anion Gap 11 (12-20); Aspartate Amino Transferase 20 U/L (5-31); Bilirubin Total 0.9 mg/dL (0.0-1.0); Blood Urea Nitrogen 16 mg/dL (9-16); Calcium 10.2 mg/dL (8.4-10.2); Carbon Dioxide 27 mmol/L (22-29); Chloride 107 mmol/L (96-108); Cholesterol 189 mg/dL (<200); Estimated Glomerular Filt Rate > 60; Glucose Fasting 102 mg/dL (60-99); HDL Cholesterol 57 mg/dL (>40); LDL Cholesterol Calculated 116 mg/dL (<100); Potassium 4.8 mmol/L (3.3-5.1); Sodium 140 mmol/L (135-145); Total Protein 7.6 g/dL (6.5-8.0); Triglycerides 80 mg/dL (<150)
[2023-02-15 12:18] LABS: TSH reflex Free T4 1.18 uIU/mL (0.32-4.0)
== END 2023-02-15 08:00 | disposition home or self-care (01) ==
LOC: HO.HMGCLDS 07:59
PROVIDERS: PCP Internal Medicine; Visit Provider Internal Medicine
DX: Z00.01 Encounter for general adult medical examination with abnormal findings (principal); R79.89 Other specified abnormal findings of blood chemistry; K76.89 Other specified diseases of liver; R68.89 Other general symptoms and signs; Z72.0 Tobacco use
CPT/HCPCS: 36415; 80053; 80061; 84443; 85025

== ENCOUNTER 2023-02-23 08:06 | Outpatient (AMB) | payer OTHER, SELFPAY ==
--- NOTE | 2023-02-23 08:36 | MHC.PC.OV ---
Intake Visit Reasons: Discuss Labs~ Allergies No Known Allergies [No Known Allergies*] Allergy (Verified 02/23/23 08:36) Medication List - Last Reconciled 02/23/23 by Odilon Cardenas MD [Tylenol PRN] Tobacco use date assessed: 02/23/23 Dental Screening Dental Screen Date: 02/23/23 Did you have a dental visit in the last 12 months?: No Did you have a dental problem in the last 6 months where you did not have access to dental care?: No Was dental information given to patient?: Patient has dentist HPI Discuss Labs~ HPI Details This is a tele medicine video visit to go over the lab reports Patient's CBC came back within normal limit, hemoglobin is normal white count is normal platelet is normal Kidney functions are intact, we liver enzymes were within normal range LDL is 114 HDL is in 50s And thyroid test came back normal Her fasting sugar was 102, we discussed diet little bit I would like her to avoid sweets if possible Patient is already maintaining the BMI [facility] Medical History Liver cyst Cholelithiasis Choledocholithiasis History of Zvygy-Dpaumrswl-Fvnyo (WPW) syndrome Surgical History History of cholecystectomy History of ERCP Family History Mother T-cell lymphoma Father Dementia Heart disease Other Mental health disorder Social History Household Members: Family Housing: House Do you presently have visiting nurse or other home services: No Alcohol intake: never Patient Tobacco Use Status: Current everyday Tobacco user Tobacco use type: Cigarette Cigarette Packs Per Day: 1 Cigarettes Per Day: 20.0 Years Smoked: 27 e-Cigarette/Vaping Use: Never Used Second Hand Smoke Exposure: No Advance Directives Date on File: 06/08/21 service: No Current occupational status: employed Gender identity: Female Cognitive needs: No Vision needs: Yes Questionnaire PHQ-9 Over the last 2 weeks, how often have you been bothered by any of the following problems? 36060 - PHQ-9 Billing: Patient declined-do not bill Source: Developed by Drs. Michael LJennifer Starks Kurt Kroenke and colleagues, with an educational flor from [employer]. Thrive Questionnaire Date Thrive assessed: 02/10/23 AUDIT C Alcohol Use Questionnaire (AUDIT-C) 1. How often do you have a drink containing alcohol?: Never 3. How often do you have six or more drinks on one occasion?: Never Total Score: 0 Score Reviewed/Action Taken: Yes DARON-7 AMB Questionnaire DARON-7 Date DARNO - 7 assessed: 02/10/23 Source: Developed by Jennifer Dent Kurt Kroenke and colleagues, with an educational flor from [employer]. Review of Systems Const All systems reviewed & are unremarkable except as noted in HPI and below Physical exam (Primary Care) Tobacco/Smoking Status: Tobacco use Status Tobacco use date assessed 02/23/23 02/23/23 08:37 Patient Tobacco Use Status Current everyday Tobacco 02/23/23 08:37 Tobacco use type Cigarette 02/23/23 08:37 e-Cigarette/Vaping Use Never Used 02/23/23 08:37 Thrive Assessment: Date of Thrive Assessment Date Thrive assessed 02/10/23 02/23/23 08:37 Telehealth Telehealth Location of provider rendering services: practice address Location of patient: address on file Patient Identification confirmed using: Name, : Yes Telehealth method: video Patient verbally consented to treatment: Yes Patient verbally consented to billing insurance company: Yes Patient informed of any privacy concerns related to visit: Yes Minutes spent on Phone/Video with Pt.: 12 Assessment and Plan Assessment & Plan (1) Impaired fasting blood sugar: Code(s): R73.01 - Impaired fasting glucose Plan This is a tele medicine video visit to go over the lab reports Patient's CBC came back within normal limit, hemoglobin is normal white count is normal platelet is normal Kidney functions are intact, we liver enzymes were within normal range LDL is 114 HDL is in 50s And thyroid test came back normal Her fasting sugar was 102, we discussed diet little bit I would like her to avoid sweets if possible Patient is already maintaining the BMI Coding Level of Care Code Tele Est Pt Level 3 (45458) Diagnoses Impaired fasting blood sugar R73.01
== END 2023-02-23 12:30 | disposition home or self-care (01) ==
LOC: HO.HMGC 08:06
PROVIDERS: PCP Internal Medicine; Visit Provider Internal Medicine
DX: R73.01 Impaired fasting glucose (principal)
CPT/HCPCS: 99213

== ENCOUNTER 2024-02-21 10:52 | Outpatient (REF) | payer OTHER, SELFPAY ==
--- NOTE | ~2024-02-21 | XR_ITS ---
EXAMINATION: XR LUMBOSACRAL SPINE 3 VIEWS CLINICAL INFORMATION: Radiculopathy, lumbar region M54.16. COMPARISON: CT Abdomen pelvis without contrast 10/25/2021 TECHNIQUE: AP, lateral and L5-S1 spot views of the lumbosacral spine. FINDINGS: Grade 1 anterolisthesis of L4 on L5. Otherwise, sagittal alignment is anatomic. Mild L5-S1 neural foraminal stenosis. Vertebral body heights are normal. Mild to moderate degenerative disc disease at L5-S1 with loss of intervertebral disc height and vacuum disc phenomenon. Otherwise, intervertebral disc heights are maintained. Multilevel lumbar facet arthropathy. Visualized sacroiliac joints are normal bilaterally. Paraspinal soft tissues are normal. Cholecystectomy clips overlie the right upper quadrant. Aortic calcifications noted. XR/XR lumbar spine 2-3V IMPRESSION: 1. No acute fracture or malalignment. 2. Mild to moderate degenerative disc disease at L5-S1 with mild L5-S1 neural foraminal stenosis. Electronically signed by: Bridget Mcdonnell DO 05/06/2024 08:41 AM [facility]ON[facility]
[2024-02-21 13:43] LABS: MANUAL DIFF FLAG NO
[2024-02-21 13:56] LABS: Basophils Percent Auto 0.6 % (0-2); Eosinophils Absolute Auto 0.1 X10*3/uL (0.0-0.4); Eosinophils Percent Auto 1.7 % (0-4); Hematocrit 42.6 % (37.0-47.0); Hemoglobin 14.3 g/dl (12.0-16.0); Imm Gran Abs Auto 0.02 X10*3/uL (0.00-0.03); Imm Gran Pct Auto 0.3 % (0.0-0.4); Lymphocytes Absolute Auto 1.2 X10*3/uL (1.2-4.9); Mean Corpuscular HGB Conc 33.6 g/dl (31.0-35.0); Mean Corpuscular Hemoglobin 29.4 pg (27.0-33.0); Mean Corpuscular Volume 87.7 fL (80.0-98.0); Mean Platelet Volume 10.8 fL (9.4-12.3); Monocytes Absolute Auto 0.5 X10*3/uL (0.1-1.2); Monocytes Percent Auto 8.2 % (2-11); Neutrophils Absolute Auto 4.5 x10*3/uL (2.0-8.3); Neutrophils Percent Auto 70.2 % (45-73); Platelet Count 205 X10*3/uL (160-400); Red Blood Count 4.86 X10*6/uL (4.20-5.50); Red Cell Distribution Width 12.7 % (11.0-16.0); White Blood Count 6.4 X10*3/uL (4.8-10.8)
[2024-02-21 14:22] LABS: Alanine Aminotransferase 13 U/L (0-31); Albumin Level 4.4 g/dL (3.5-5.0); Alkaline Phosphatase 95 U/L (39-117); Anion Gap 10 (12-20); Aspartate Amino Transferase 19 U/L (5-31); Bilirubin Total 1.2 mg/dL (0.0-1.0); Blood Urea Nitrogen 13 mg/dL (9-16); Calcium 10.1 mg/dL (8.4-10.2); Carbon Dioxide 27 mmol/L (22-29); Chloride 108 mmol/L (96-108); Estimated Glomerular Filt Rate > 60; Glucose Random 104 mg/dL (60-115); Potassium 3.9 mmol/L (3.3-5.1); Sodium 141 mmol/L (135-145); Total Protein 7.7 g/dL (6.5-8.0)
[2024-02-21 14:25] LABS: Estimated Average Glucose 103 mg/dL; Hemoglobin A1C 119.3992 umol/L; Hemoglobin A1c % 5.2 % (<6.0); Total Hemoglobin (HGBA1C) 3547.2382 umol/L
[2024-02-22 19:17] LABS: LDL Cholesterol Direct 121 mg/dL (<100)
== END 2024-02-21 10:53 | disposition home or self-care (01) ==
LOC: HO.HMGCX 10:52
PROVIDERS: PCP Internal Medicine; Visit Provider Internal Medicine
DX: Z00.01 Encounter for general adult medical examination with abnormal findings (principal); M54.16 Radiculopathy, lumbar region; K76.89 Other specified diseases of liver; R73.01 Impaired fasting glucose; Z72.0 Tobacco use
CPT/HCPCS: 36415; 72100; 80053; 83036; 83721; 85025; 96127; 99212; 99396

== ENCOUNTER 2024-02-21 10:52 | Outpatient (AMB) | payer OTHER, SELFPAY ==
--- NOTE | 2024-02-21 10:54 | MHC.PC.OV ---
Vital Signs 02/21/24 10:58 Height 5 ft 10 in Weight 175 lb 2 oz BMI 25.1 BP 124/76 Blood Pressure Location Rt brachial Position Sitting Pulse 80 Pulse Source Pulse Oximeter Pulse Oximetry (%) 98 Oxygen Delivery Method Room Air Intake Visit Reasons: Annual PE Allergies No Known Allergies [No Known Allergies*] Allergy (Verified 02/21/24 10:59) Medication List - Last Reconciled 02/21/24 by Odilon Cardenas MD [Tylenol PRN] Tobacco use date assessed: 02/21/24 Dental Screening Dental Screen Date: 02/21/24 Did you have a dental visit in the last 12 months?: No Did you have a dental problem in the last 6 months where you did not have access to dental care?: No Was dental information given to patient?: Patient has dentist HPI Annual PE HPI Details Patient is 58-year-old female came for physical exam Patient is established with [facility] for the monitoring of recurrent liver cyst She agreed to do colonoscopy, referral placed Blood pressure is stable BMI is stable Lab order placed to be done today Patient have a history of impaired fasting sugar Tobacco abuse: Advised patient to stop as soon as possible, she is smoking half pack daily Mammogram is due Pap smear: Patient is established with [facility] Colonoscopy: I ordered Cologuard test for her last year which She has large varicosities right more than left, and is requesting vascular referral Her legs become sore when she is standing for long She has also developed right sciatica, patient says that she has been doing a lot of cleaning at home and lifting heavy boxes Taking Tylenol which does help, she will add ibuprofen as well I have ordered x-ray of her lumbar spine to check baseline Her spine is nontender to percussion Her mother in October patient is feeling emotional talking about that She will return in 1 year for physical exam or earlier if needed [facility] Medical History Liver cyst Cholelithiasis Choledocholithiasis History of Ycset-Norttxokv-Fbndr (WPW) syndrome Surgical History History of cholecystectomy History of ERCP Family History Mother T-cell lymphoma Father Dementia Heart disease Other Mental health disorder Social History Household Members: Family Housing: House Do you presently have visiting nurse or other home services: No Alcohol intake: never Patient Tobacco Use Status: Current everyday Tobacco user Tobacco use type: Cigarette Cigarette Packs Per Day: 1 Cigarettes Per Day: 20.0 Years Smoked: 27 e-Cigarette/Vaping Use: Never Used Second Hand Smoke Exposure: No Advance Directives Date on File: 06/08/21 service: No Current occupational status: employed Gender identity: Female Cognitive needs: No Hearing needs: No Vision needs: Yes Questionnaire PHQ-9 Over the last 2 weeks, how often have you been bothered by any of the following problems? 1. Little interest or pleasure in doing things: not at all 2. Feeling down, depressed, or hopeless: several days 3. Trouble falling or staying asleep, or sleeping too much: several days 4. Feeling tired or having little energy: not at all 5. Poor appetite or overeating: not at all 6. Feeling bad about yourself - or that you are a failure or have let yourself or your family down: not at all 7. Trouble concentrating on things, such as reading the newspaper or watching television: not at all 8. Moving or speaking so slowly that other people could have noticed. Or the opposite - being so fidgety or restless that you have been moving around a lot more than usual: not at all 9. Thoughts that you would be better off or of hurting yourself in some way: not at all Total score: 2 Depression Screening Interpretation: Negative Depression Screening Done: Yes 93326 - PHQ-9 Billing: Yes Source: Developed by Drs. Michael Maher, Jennifer Feliz, Price Klein and colleagues, with an educational flor from [employer]. Thrive Questionnaire Date Thrive assessed: 02/21/24 I am a: Patient What is your living situation today?: I have a steady place to live Within the past 12 months, did the food you bought not last and you didn't have the money to get more?: Never true Within the past 12 months, did you worry whether your food would run out before you got money to buy more?: Never true Do you have trouble paying for medicines?: No Do you have trouble getting transportation to medical appointments?: No Do you have trouble paying your heating and electricity bill?: No Do you have trouble taking care of your child, family member or friend?: No Do you have trouble with day-to-day activities such as bathing, preparing meals, shopping, managing finances, etc.?: No Are you currently unemployed and looking for a job?: No Are you interested in more education?: No Please select the resources that you would like help with: None Currently or been in a relationship where the following occur: I choose not to answer THRIVE Score: 0 AUDIT C Alcohol Use Questionnaire (AUDIT-C) 1. How often do you have a drink containing alcohol?: Never 3. How often do you have six or more drinks on one occasion?: Never Total Score: 0 Score Reviewed/Action Taken: Yes DARON-7 AMB Questionnaire DARON-7 Date DARON - 7 assessed: 02/21/24 Feeling nervous, anxious, or on edge: 0 = Not at all Not being able to stop or control worryin = Not at all Worrying too much about different things: 0 = Not at all Trouble relaxin = Not at all Being so restless that it is hard to sit still: 0 = Not at all Becoming easily annoyed or irritable: 0 = Not at all Feeling afraid as if something awful might happen: 0 = Not at all Total DARON-7 score (0-4 normal; 5-9 mild; 10-14 moderate; 15-21 severe): 0 Source: Developed by Drs. Michael Maher, Jennifer Feliz, Price Klein and colleagues, with an educational flor from [employer]. DARON-7 Assessment Billing DARON-7 Assessment Tool: DARON-7 Assessment 97934 Review of Systems Const Denies chills, Denies fever(s) and Denies headache(s) Eyes Denies blurry vision ENT Denies headache(s), Denies nasal discharge, Denies nasal obstruction, Denies odynophagia and Denies sinus pain Card Denies chest pain at rest and Denies chest pain with activity Resp Denies cough and Denies hemoptysis GI Denies diarrhea, Denies odynophagia, Denies vomiting and Denies hematemesis Reports as per HPI Musc Denies abnormal gait Skin/Breast Reports as per HPI Neuro Denies Neuro-related abnormal movements, Denies Abnormal speech present, Denies abnormal gait, Denies headache(s) and Denies Sensory deficit (Neuro) Psych Denies mood swings and Denies paranoia Endo Reports as per HPI Garcia/Lymph Reports as per HPI Aller/Immun Reports as per HPI Physical exam (Primary Care) Vital Signs: Last Vital Signs Pulse 80 02/21/24 10:58 BP 124/76 02/21/24 10:58 Pulse Ox 98 02/21/24 10:58 Oxygen Delivery Method Room Air 02/21/24 10:58 BMI result Body Mass Index 25.1 Tobacco/Smoking Status: Tobacco use Status Tobacco use date assessed 02/21/24 02/21/24 11:00 Patient Tobacco Use Status Current everyday Tobacco 02/21/24 10:57 Tobacco use type Cigarette 02/21/24 10:57 e-Cigarette/Vaping Use Never Used 02/21/24 10:57 PHQ-9: PHQ-9 Score PHQ-9: Total score 2 02/21/24 11:00 Depression Screening Interpretation: Negative Thrive Assessment: Date of Thrive Assessment Date Thrive assessed 02/21/24 02/21/24 11:00 Currently or been in a relationship where the following occur: I choose not to answer Const General: cooperative, comfortable and no acute distress Orientation/consciousness: patient oriented x3 HENMT Head: Yes normocephalic and Yes atraumatic Eyes General: appearance normal, both eyes and all related structures Pupils: Equal, round and reactive pupils present EOM: EOMs intact bilaterally Neck Neck: Yes supple and No lymphadenopathy Thyroid: Thyroid normal Lymphatic: no lymphadenopathy noted Resp Effort & Inspection: normal respiratory effort and able to speak in complete sentences Auscultation: clear to auscultation bilaterally Cardio Heart sounds: S1 normal heart sound present and S2 normal heart sound present GI Palpation (GI): Soft to palpation and nontender Auscultation: normal bowel sounds General: Yes no CVA tenderness Back/Spine/Pelvis Back: no CVA tenderness Skin General skin exam: elasticity normal and turgor normal Neuro Other: Slightly positive straight leg right side General: patient oriented x3 and gait normal Cranial nerves: Yes Equal, round and reactive pupils present Speech: No Abnormal speech present Sensory Exam: No Sensory deficit (Neuro) Coordination: tandem gait normal and Romberg test negative Extrem General: Yes normal exam except as noted and No edema Coding Level of Care Code Est Pt Level 4 (17828) Est Pt Prev Care 40-64y(32475) Diagnoses Encounter for general adult medical examination with abnormal findings Z00.01 Right lumbar radiculitis M54.16 Varicose veins of bilateral lower extremities with other complications I83.893 Tobacco abuse Z72.0 Liver cyst K76.89 Impaired fasting blood sugar R73.01 Additional Codes DARON-7 Assessment Billing - DARON-7 Assessment Tool: DARON-7 Assessment 08672 ([id number]) Assessment & Plan Assessment & Plan (1) Encounter for general adult medical examination with abnormal findings: Code(s): Z00.01 - Encounter for general adult medical examination with abnormal findings Category: Medical (2) Right lumbar radiculitis: Code(s): M54.16 - Radiculopathy, lumbar region Category: Medical (3) Varicose veins of bilateral lower extremities with other complications: Code(s): I83.893 - Varicose veins of bilateral lower extremities with other complications Category: Medical (4) Tobacco abuse: Code(s): Z72.0 - Tobacco use Category: Medical (5) Liver cyst: Code(s): K76.89 - Other specified diseases of liver Category: Medical (6) Impaired fasting blood sugar: Code(s): R73.01 - Impaired fasting glucose Category: Medical Plan Patient is 58-year-old female came for physical exam Patient is established with [facility] for the monitoring of recurrent liver cyst She agreed to do colonoscopy, referral placed Blood pressure is stable BMI is stable Lab order placed to be done today Patient have a history of impaired fasting sugar Tobacco abuse: Advised patient to stop as soon as possible, she is smoking half pack daily Mammogram is due Pap smear: Patient is established with [facility] Colonoscopy: I ordered Cologuard test for her last year which She has large varicosities right more than left, and is requesting vascular referral Her legs become sore when she is standing for long She has also developed right sciatica, patient says that she has been doing a lot of cleaning at home and lifting heavy boxes Taking Tylenol which does help, she will add ibuprofen as well I have ordered x-ray of her lumbar spine to check baseline Her spine is nontender to percussion Her mother in October patient is feeling emotional talking about that She will return in 1 year for physical exam or earlier if needed Orders: Orders Complete Blood Count Auto Diff Today K76.89 - Other specified diseases of liver, R73.01 - Impaired fasting glucose, Z00.01 - Encounter for general adult medical examination with abnormal findings, Z72.0 - Tobacco use LDL Cholesterol Direct Today K76.89 - Other specified diseases of liver, R73.01 - Impaired fasting glucose, Z00.01 - Encounter for general adult medical examination with abnormal findings, Z72.0 - Tobacco use XR lumbar spine 2-3V Today M54.16 - Radiculopathy, lumbar region MM tomosynthesis screening BI Today Z12.31 - Encounter for screening mammogram for malignant neoplasm of breast Hemoglobin A1c Today K76.89 - Other specified diseases of liver, R73.01 - Impaired fasting glucose, Z00.01 - Encounter for general adult medical examination with abnormal findings, Z72.0 - Tobacco use Comprehensive Met. Panel Today K76.89 - Other specified diseases of liver, R73.01 - Impaired fasting glucose, Z00.01 - Encounter for general adult medical examination with abnormal findings, Z72.0 - Tobacco use Referrals Vascular Surgery Referral I83.893 - Varicose veins of bilateral lower extremities with other complications
[2024-02-21 10:58] VITALS: BP 124/76; PULSE 80; O2SAT 98; BMI 25.1
== END 2024-02-21 11:23 | disposition home or self-care (01) ==
PROVIDERS: PCP Internal Medicine; Visit Provider Internal Medicine
DX: Z00.00 Encounter for general adult medical examination without abnormal findings (principal); M54.16 Radiculopathy, lumbar region; I83.893 Varicose veins of bilateral lower extremities with other complications; Z72.0 Tobacco use; K76.89 Other specified diseases of liver; R73.01 Impaired fasting glucose

== ENCOUNTER 2024-03-01 14:38 | Outpatient (REF) | payer OTHER, SELFPAY ==
--- NOTE | ~2024-03-01 | MM_ITS ---
EXAMINATION: MM SCREENING DIGITAL BREAST TOMOSYNTHESIS, BILATERAL CLINICAL INFORMATION: Screening. Asymptomatic. COMPARISON: Mammography: Comparison is made with available priors TECHNIQUE: Digital breast mammography with tomosynthesis is performed in both the craniocaudal and mediolateral oblique views along with computer-aided detection (CAD). FINDINGS: There are scattered areas of fibroglandular density (ACR BI-RADS breast composition Category b). There are no significant masses, abnormal calcifications, or other abnormalities. MM/MM tomosynthesis screening BI IMPRESSION: No mammographic evidence of malignancy. ASSESSMENT: BI-RADS BI-RADS 1 - Negative RECOMMENDATION: Routine annual mammography screening. 1 year F/U This examination should not preclude the clinical evaluation of a suspicious palpable abnormality. This patient's information was entered into a reminder system with a target due date for their next mammogram. Electronically signed by: Tricia Saavedra DO 03/14/2024 09:42 PM EDT
== END 2024-03-01 14:39 | disposition home or self-care (01) ==
LOC: HO.MAMMO 14:38
PROVIDERS: PCP Internal Medicine; Visit Provider Internal Medicine
DX: Z12.31 Encounter for screening mammogram for malignant neoplasm of breast (principal)
CPT/HCPCS: 77063; 77067

== ENCOUNTER → 2024-03-01 14:45 | Outpatient (BNV) | payer OTHER, SELFPAY | PROVIDERS: PCP Internal Medicine; Visit Provider Internal Medicine | DX: Z12.31 Encounter for screening mammogram for malignant neoplasm of breast (principal) | CPT/HCPCS: 77063; 77067 ==

== ENCOUNTER 2024-05-02 14:40 | Outpatient (AMB) | payer OTHER, SELFPAY ==
--- OUTSIDE RECORDS SUMMARY | 2024-05-02 14:46 | XMS_ITS ---
Author Name [facility] Organization Unknown Problems Problem Status Onset Date Problem Type Date of Resoluti on Source Hepatic cyst active 2021-07-09 [facility] Ascites active 2021-07-08 [facility]
--- NOTE | 2024-05-02 14:55 | MHC.OFFVIS ---
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 She has pain , swelling and feelings of tightness. She does elevate her legs at home and wears compression socks while working. Pain ongoing for about 4-5 years. 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 Complaints include pain over varicosities, swelling of lower extremities, cramping, fatigue, and heaviness of the lower extremities. It has been affecting their daily activities including standing. It is noted in bilateral legs. She has occurred approximately half a pack a day smoker. She is not a diabetic. Patient denies any previous venous surgery or injections. Patient denies any history of DVT/ PE. Patient denies any history of phlebitis. Trial of compression includes - compression stockings and elevation with little relief They now present for vascular evaluation regarding their varicose veins. [facility] Medical History Liver cyst Cholelithiasis Choledocholithiasis History of Weogb-Xpvodbghp-Uhidc (WPW) syndrome Surgical History History of cholecystectomy History of ERCP Family History Mother T-cell lymphoma Father Dementia Heart disease Other Mental health disorder Social History Household Members: Family Housing: House Do you presently have visiting nurse or other home services: No Alcohol intake: never Patient Tobacco Use Status: Current everyday Tobacco user Tobacco use type: Cigarette Cigarette Packs Per Day: 1 Cigarettes Per Day: 20.0 Years Smoked: 27 e-Cigarette/Vaping Use: Never Used Second Hand Smoke Exposure: No Advance Directives Date on File: 06/08/21 service: No Current occupational status: employed Gender identity: Female Cognitive needs: No Hearing needs: No Vision needs: Yes Review of Systems Const Reports as per HPI and Denies weakness ENT Reports Normal hearing present and Denies dizziness Card Reports as per HPI, Denies chest pain, Denies chest pain at rest, Denies chest pain with activity, Denies dyspnea and Denies dyspnea on exertion Resp Reports as per HPI, Denies cough, Denies dyspnea and Denies dyspnea on exertion GI Reports as per HPI, Denies abdominal pain, Denies nausea and Denies vomiting Musc Denies numbness Skin/Breast Reports as per HPI, Denies erythema and Denies wounds Neuro Reports Normal hearing present, Denies dizziness, Denies numbness, Denies Sensory deficit (Neuro) and Denies weakness Psych Reports no additional complaints Endo Reports no additional complaints Physical Exam Const General: healthy appearing and no acute distress Orientation/consciousness: patient oriented x3 HEENT Head: Yes normal to inspection Ears: hearing grossly normal bilaterally Mouth: Normal oral and palatal mucosa present Resp Effort & Inspection: normal respiratory effort and able to speak in complete sentences Auscultation: clear to auscultation bilaterally Cardio Jugular venous distension: no JVD Rate: regular rate Rhythm: regular rhythm Heart sounds: S1 normal heart sound present and S2 normal heart sound present Bruits: no abdominal aortic bruits, no carotid bruits, no femoral bruits and no renal bruits Peripheral pulses: Peripheral pulses 2+ throughout GI Inspection: Yes normal to inspection Palpation (GI): No Abdominal aortic bruit present Skin General skin exam: no rashes or lesions noted Wounds: no wounds Hair: normal Neuro General: patient oriented x3 Cranial nerves: Yes Normal hearing present Cognition (Neuro): normal cognition Gait exam (Neuro): Normal gait present Motor exam (neuro): 5/5 motor strength present throughout Sensory Exam: No Sensory deficit (Neuro) Extrem Other: Bilateral lower extremities: Very large tortuosity is noted from the upper thigh all the way down past the tibial tuberosity, greater than 30 cm. Smaller tortuosities noted throughout the lower extremities. Discoloration noted in both ankle areas. Palpable DP pulses. CEAP: C - 4 E - primary A - superficial P - reflux General: Yes normal to inspection, Yes full ROM, Yes capillary refill normal and Yes normal gait Assessment & Plan Assessment & Plan (1) Varicose veins of both lower extremities with inflammation: Code(s): I83.11 - Varicose veins of right lower extremity with inflammation; I83.12 - Varicose veins of left lower extremity with inflammation Category: Medical Plan: Melissa is presenting today on a referral from her PCP for ongoing varicose veins, worsening. In short, the patient has evidence of venous insufficiency. I have discussed the pathophysiology with the patient. In addition I have provided informational material regarding venous disease to the patient. We have discussed conservative measures including compression, elevation, and exercise. We discussed the importance of continuing with compression stockings, especially while she is working, and elevation. I have taken the liberty of ordering venous insufficiency testing with the patient. They will follow up with me after testing. The patient had an opportunity to ask questions regarding the treatment plan. All questions were answered. Imaging studies, laboratory studies and physical exam results were discussed and reviewed in detail. No major barriers to understanding were identified. The patient expressed understanding and agreement with the above treatment plan. The patient is aware they should contact our office by phone for worsening of the current condition or the appearance of new symptoms. Thank you for allowing me to participate in the vascular care of this patient. If you have any questions or concerns regarding the treatment for the above condition please do not hesitate to contact me. The office telephone contact is [phone]. This note is constructed using voice recognition software. While every effort has been made to ensure accuracy, support services specialist errors may have been included. Thank you for allowing me to participate in the care of your patient. Yours sincerely, BARRIE Barahona Orders: Orders US venous duplex LE BI 1 Week I83.11 - Varicose veins of right lower extremity with inflammation, I83.12 - Varicose veins of left lower extremity with inflammation Coding Level of Care Code New Pt Level 4 (24121) Diagnoses Varicose veins of both lower extremities with inflammation I83.11; I83.12
== END 2024-05-02 15:09 | disposition home or self-care (01) ==
PROVIDERS: PCP Internal Medicine; Visit Provider Physician Assistant Surgical
DX: I83.11 Varicose veins of right lower extremity with inflammation (principal); I83.12 Varicose veins of left lower extremity with inflammation
CPT/HCPCS: 99204

== ENCOUNTER → 2024-05-02 14:40 | Outpatient (BNVA) | payer OTHER, SELFPAY | PROVIDERS: PCP Internal Medicine; Visit Provider Physician Assistant Surgical | DX: I83.11 Varicose veins of right lower extremity with inflammation (principal); I83.12 Varicose veins of left lower extremity with inflammation | CPT/HCPCS: 99202 ==

== ENCOUNTER 2024-05-27 08:02 | Outpatient (REF) | payer OTHER, SELFPAY ==
--- NOTE | ~2024-05-27 | US_ITS ---
EXAMINATION: US LOWER EXTREMITY VENOUS (REFLUX EXAM), BILATERAL CLINICAL INFORMATION: Varices right lower extremity with inflammation COMPARISON: None. TECHNIQUE: Color flow triplex imaging and compression Doppler was performed to evaluate both the deep and the superficial systems bilaterally. To evaluate the superficial system, the examination was performed in the upright position. Color-flow Doppler ultrasound and compression ultrasound were utilized. In addition, maneuvers were utilized to demonstrate reflux. FINDINGS: 1. DEEP VENOUS ULTRASOUND OF THE RIGHT LOWER EXTREMITY: Common Femoral Vein: Compressible, normal respiratory variation and augmented flow. Femoral Vein: Compressible, normal color flow and augmentation. Popliteal Vein: Compressible, normal augmentation. Deep Reflux: There is no evidence of reflux in the deep system in either the common femoral vein, superficial femoral or the popliteal vein. There is no evidence of a Parsons's cyst. 2. SUPERFICIAL ULTRASOUND WITH DOPPLER OF RIGHT LOWER EXTREMITY: GREAT SAPHENOUS VEIN: Saphenofemoral Junction: 0.9 cm; Reflux: More than 1860 ms Proximal Thigh: 1.3 cm; Reflux: More than 2204 ms Mid Thigh: 1.0 cm; Reflux: More than 1864 ms Distal Thigh: 0.4 cm; Reflux: More than 1892 ms At Knee: 1.1 cm; Reflux: More than 2436 ms Proximal Calf: 0.6 cm; Reflux: More than 2636 ms Mid Calf: 0.3 cm; Reflux: 1808 ms Distal Calf: 0.2 cm; Reflux: 588 ms DUPLICATED MEDIAL GREAT SAPHENOUS VEIN: Diameter: None imaged Reflux: NA DUPLICATED LATERAL GREAT SAPHENOUS VEIN: Diameter: None imaged Reflux: NA SMALL SAPHENOUS VEIN: Saphenopopliteal Junction: 0.2 cm; Reflux: 0 ms Proximal: 0.1 cm; Reflux: 0 ms Distal: Not identified VEIN OF GIACOMINI: Size: NA Reflux: NA PERFORATORS: Location: None imaged Size: NA Reflux: NA VARICOSITIES: Location: None imaged. Size: NA Reflux: NA 3. DEEP VENOUS ULTRASOUND OF THE LEFT LOWER EXTREMITY: Common Femoral Vein: Compressible, normal respiratory variation and augmented flow. Femoral Vein: Compressible, normal color flow and augmentation. Popliteal Vein: Compressible, normal augmentation. Deep Reflux: There is no evidence of reflux in the deep system in either the common femoral vein, superficial femoral or the popliteal vein. There is no evidence of a Parsons's cyst. 4. SUPERFICIAL ULTRASOUND WITH DOPPLER OF LEFT LOWER EXTREMITY: GREAT SAPHENOUS VEIN: Saphenofemoral Junction: 0.8 cm; Reflux: 0 ms Proximal Thigh: 1.3 cm; Reflux: More than 2044 ms Mid Thigh: 0.6 cm; Reflux: More than 2344 ms Distal Thigh: 0.4 cm; Reflux: 972 ms At Knee: 0.3 cm; Reflux: 2144 ms Proximal Calf: 0.5 cm; Reflux: More than 2280 ms Mid Calf: 0.3 cm; Reflux: 0 ms Distal Calf: 0.2 cm; Reflux: 0 ms DUPLICATED MEDIAL GREAT SAPHENOUS VEIN: Diameter: None imaged Reflux: NA DUPLICATED LATERAL GREAT SAPHENOUS VEIN: Diameter: None imaged. Reflux: NA SMALL SAPHENOUS VEIN: Saphenopopliteal Junction: 0.2 cm; Reflux: 0 ms Proximal: 0.2 cm; Reflux: 0 ms Distal: 0.2 cm; Reflux: 0 ms VEIN OF GIACOMINI: Size: NA Reflux: NA PERFORATORS: Location: None imaged Size: NA Reflux: NA VARICOSITIES: Location: None Imaged Size: NA Reflux: NA US/US venous insuf bilat IMPRESSION: Right: Venous insufficiency throughout the great saphenous vein Left: Venous insufficiency throughout most great saphenous vein. Electronically signed by: Douglas Gilliam MD 05/30/2024 08:19 AM [facility]
== END 2024-05-27 08:03 | disposition home or self-care (01) ==
LOC: HO.US 08:02
PROVIDERS: PCP Internal Medicine; Visit Provider Physician Assistant Surgical
DX: I83.11 Varicose veins of right lower extremity with inflammation (principal); I83.12 Varicose veins of left lower extremity with inflammation
CPT/HCPCS: 93970

== ENCOUNTER → 2024-05-27 08:04 | Outpatient (BNV) | payer OTHER, SELFPAY | PROVIDERS: PCP Internal Medicine; Visit Provider Radiology Diagnostic Radiology | DX: I87.8 Other specified disorders of veins (principal) | CPT/HCPCS: 93970 ==

== ENCOUNTER 2024-06-04 14:43 | Outpatient (AMB) | payer OTHER, SELFPAY ==
--- NOTE | 2024-06-04 14:45 | A.OFFVIS_ITS ---
Vital Signs 06/04/24 14:46 Height 5 ft 10 in Intake Visit Reasons: Follow up 05/27/24 Intake Note: Follow up 05/27/24 for bilateral LE VV, Right LE worse than Left LE. Pt states swelling and tightness, wears compression daily. 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 She has large varicosities that have been a source of pain and discomfort for her. 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 They have caused her discomfort and she now presents for follow-up with venous insufficiency testing. Of note compression of provided minimal relief. [facility] Medical History Liver cyst Cholelithiasis Choledocholithiasis History of Toaps-Uriqvyrds-Ayafk (WPW) syndrome Surgical History History of cholecystectomy History of ERCP Family History Mother T-cell lymphoma Father Dementia Heart disease Other Mental health disorder Social History (Updated 06/04/24 @ 14:48 by CARIN Landa) Household Members: Family Housing: House Do you presently have visiting nurse or other home services: No Alcohol intake: never Patient Tobacco Use Status: Current everyday Tobacco user Tobacco use type: Cigarette Cigarette Packs Per Day: 1 Cigarettes Per Day: 15 Years Smoked: 27 e-Cigarette/Vaping Use: Never Used Second Hand Smoke Exposure: No Advance Directives Date on File: 06/08/21 service: No Current occupational status: employed Gender identity: Female Cognitive needs: No Hearing needs: No Vision needs: Yes Review of Systems Const Reports as per HPI ENT Reports no additional complaints Card Denies chest pain, Denies chest pain at rest and Denies chest pain with activity Resp Denies chest congestion and Denies cough GI Reports no additional complaints Musc Details: pain over varicosities, aching of lower extremities, swelling, cramping, heaviness and tiredness, itching Denies abnormal gait Skin/Breast Reports pruritus and Denies wounds Neuro Reports no additional complaints and Denies abnormal gait Psych Denies no additional complaints Physical Exam Const General: cooperative, healthy appearing and comfortable Orientation/consciousness: oriented to person, oriented to place and oriented to time Neck Carotids: no bruits Chest Chest palpation & inspection: normal inspection of the chest and normal pa lpation of entire chest wall Resp Effort & Inspection: normal respiratory effort and able to speak in complete sentences Cardio Rate: regular rate Heart sounds: S1 normal heart sound present and S2 normal heart sound present Peripheral pulses: Peripheral pulses 2+ throughout GI Inspection: Yes normal to inspection Skin Other: +2 edema, large rope-like varicosities greater than 4 mm bilateral calf and thigh CEAP Classification C4 - skin color changes Ep - Etiology Primary As - superficial veins P - reflux General skin exam: dry skin Neuro General: oriented to person, oriented to place and oriented to time Extrem Right lower extremity: full ROM, normal capillary refill and edema Left lower extremity: full ROM, normal capillary refill and edema Psych Mental Status: mental status grossly normal Results Reviewed Results Reviewed: Brief summary of venous insufficiency testing is as follows: right great saphenous vein: Positive right small saphenous vein: negative right accessory vein: none present left great saphenous vein: Positive left small saphenous vein: negative left accessory vein: none present Please note there is no evidence of any venous aneurysms or significant tortuosity Assessment & Plan Assessment & Plan (1) Varicose veins of right lower extremity with inflammation: Code(s): I83.11 - Varicose veins of right lower extremity with inflammation Category: Medical Plan: This patient has varicose veins with inflammation. They continue to be a source of discomfort for the patient. The patient has tried conservative treatment with compression, leg elevation and exercise program for over 3 months time. They have been compliant with all treatment. This has provided minimal relief for the patient. I do not anticipate this course of treatment will alter the underlying etiology. The patient has been scheduled for lower extremity venous treatment inclusive of --- right great saphenous vein radiofrequency ablation. Risks, benefits, and complications of this procedure has been discussed in detail with the patient including but not limited to bleeding, infection, and the development of a DVT. The patient has demonstrated a clear understanding and has consented. We will schedule the patient as soon as possible. Thank you for allowing us to participate in this patient's care. If there are any questions or concerns please do not hesitate to contact us. Coding Level of Care Code Est Pt Level 4 (09714) Diagnoses Varicose veins of right lower extremity with inflammation I83.11
== END 2024-06-04 15:03 | disposition home or self-care (01) ==
PROVIDERS: PCP Internal Medicine; Visit Provider Surgery Vascular Surgery
DX: I83.11 Varicose veins of right lower extremity with inflammation (principal)
CPT/HCPCS: 99214

== ENCOUNTER → 2024-06-04 14:43 | Outpatient (BNVA) | payer OTHER, SELFPAY | PROVIDERS: PCP Internal Medicine; Visit Provider Surgery Vascular Surgery | DX: I83.11 Varicose veins of right lower extremity with inflammation (principal); F17.210 Nicotine dependence, cigarettes, uncomplicated | CPT/HCPCS: 99212 ==

== ENCOUNTER 2024-07-12 08:13 | Outpatient (AMB) | payer OTHER, SELFPAY ==
--- OUTSIDE RECORDS SUMMARY | 2024-07-12 08:16 | XMS_ITS | Clinical Summary ---
Author Organization [facility] Address [address] [place] [id number] Care Team Providers Care Vice Principal Name Role Phone System, Provider Not In Primary Care Provider Un available Allergies No known active allergies Medications Medication Sig Dispensed Refills Start Date End Date Status amoxicillin-clavulana te (AUGMENTIN) 875-125 MG per tabletIndications:Hep atic cyst Take 1 tablet by mouth 2 (two) times a day. 18 tablet 07/11/2021 Active Active Problems Problem Noted Date Diagnosed Date Hepatic cyst 07/09/2021 Ascites 07/08/2021 Overview (07/09/2021): Added automatically from request for surgery [id number] Social History Tobacco Use Types Packs/Day Years Used Date Smoking Tobacco: Never Assessed Sex and Gender Information Value Date Recorded Sex Assigned at Not on file Gender Identity Not on file Sexual Orientation Not on file Last Filed Vital Signs Vital Sign Reading Time Taken Comments Blood Pressure 122/70 07/11/2021 12:08 PM EST Pulse 72 07/11/2021 12:08 PM EST Temperature 36.7 ??C (98.1 ??F) 07/11/2021 12:[address] Respiratory Rate 18 07/11/2021 12:08 PM EST Oxygen Saturation 95% 07/11/2021 12:08 PM EST Inhaled Oxygen Concentration - - Weight - - Height - - Body Mass Index - - Plan of Treatment Health Maintenance Due Date Last Done Comments Hepatitis C Virus Screening 1965 HIV Screening 02/25/1976 DTaP/Tdap/Td Vaccines (1 - Tdap) 1982 Pap Smear (Ages 21-65) 02/25/1984 Mammogram 2003 Colonoscopy 02/25/2008 Pneumococcal Vaccines 50+ (1 of 1 - PCV) 2013 Zoster (Shingles) Vaccine (1 of 2) 2013 Hepatitis B Vaccines (1 of 3 - Risk 3-dose series) 2023 RSV Vaccine 60 years and old er and Patients (1 - Risk 60-74 years 1-dose series) 2023 Influenza Vaccine 12/21/2023 COVID-19 Vaccine (1 - 2023-2 5 season) 2024 Pneumococcal Vaccine: Pediat bhavani (0-5 Years) and At-Risk Patients (6 to 49 Years) Aged Out No longer eligible b ased on patient's age to complete this topic Advance Directives * Full Code (Latest Code Status on File) Date Activated Date Inactivated Comments 07/09/2021 3:03 AM Care Teams Vice Principal Relationship Specialty Start Date End Date System, Provider Not In PCP - General 07/08/21
[2024-07-12 08:58] VITALS: BMI 25.1
--- NOTE | 2024-07-12 08:58 | MHC.OFFVIS ---
Vital Signs 07/12/24 08:58 Height 5 ft 10 in Weight 175 lb BMI 25.1 Intake Visit Reasons: Right GSV RFA Accompanied by: Self / Same As Patient Allergies No Known Allergies [No Known Allergies*] Allergy (Verified 07/12/24 08:58) [facility] Medical History Liver cyst Cholelithiasis Choledocholithiasis History of Snckz-Hzuenfgvx-Sflqd (WPW) syndrome Surgical History History of cholecystectomy History of ERCP Family History Mother T-cell lymphoma Father Dementia Heart disease Other Mental health disorder Social History Household Members: Family Housing: House Do you presently have visiting nurse or other home services: No Alcohol intake: never Patient Tobacco Use Status: Current everyday Tobacco user Tobacco use type: Cigarette Cigarette Packs Per Day: 1 Cigarettes Per Day: 15 Years Smoked: 27 e-Cigarette/Vaping Use: Never Used Second Hand Smoke Exposure: No Advance Directives Date on File: 06/08/21 service: No Current occupational status: employed Gender identity: Female Cognitive needs: No Hearing needs: No Vision needs: Yes Physical Exam Vital Signs: BMI result Body Mass Index 25.1 Office Procedures Vascular Office Procedure Details Details: Diagnosis: Varicose veins with inflammation of right leg Procedure: Endovenous radiofrequency ablation of the right great saphenous vein(s) of the lower extremity. Surgeon: Dr. Jimenez Graphics Artist: Lauryn SOOD Anesthesia: Local infiltration 5 cc, Tumescent 300 cc. Estimated Blood Loss: minimal Specimen: Varicose veins The patient was transferred to the procedure suite and the insufficient saphenous vein was mapped by ultrasound and diagrammed on the overlying skin. The depth and diameter of the vein(s) to be treated was documented. The varicose tributary veins and suitable access sites were identified and mapped as well. The patient was then positioned supine on the procedure table. The affected limb was prepped and draped in the usual sterile fashion. The RF catheter was placed on the sterile field, flushed and wiped down, prepared, and connected by a sterile cable. The patient was placed in supine position and local anesthesia was instilled in the skin overlying the access site. A skin incision was made overlying the identified and mapped great saphenous vein entry site. The vein was accessed using ultrasound guidance and the Seldinger technique, a guide wire was introduced through the needle, which was then exchanged over the guide wire for a 6F sheath, which was secured in place. The guide wire was removed and the sheath was flushed. The RF catheter was placed into the vein through the sheath and preferentially, imaging was used to place the catheter tip just inferior to the superficial epigastric vein to preserve normal physiological flow in that vein. Additionally, it was confirmed by ultrasound guidance that the catheter tip was also placed a minimum of 1.5cm distal to the saphenofemoral junction. After the RF catheter position was verified by ultrasound, tumescent anesthesia was infiltrated, under ultrasound guidance, precisely into the perivenous compartment along the entire length of vein from the entry site to the saphenofemoral junction until a halo of fluid was noted around the vein. The patient was then placed in supine position to further exsanguinate the superficial venous system. After RF catheter position was again confirmed with ultrasound imaging, and under direct external compression along the length of the heating element, RF energy was applied. The vein was segmentally ablated by heating a 8 cm segment and then indexing the catheter forward by 7.5 cm until the treatment length is completed. Device temperature was maintained at 120 plus or minus 5 degrees C with an initial power level of 40W dropping to below 20W for each treatment. Total vein length treated 40 cm Total cycles of RF 6. Repeat ultrasound of the saphenous vein was performed, confirming successful treatment. The catheter and sheath were withdrawn and hemostasis established with direct pressure. After assuring hemostasis, the skin incision over the saphenous vein was closed with a bandage and a compression wrap, and/ or graduated compression stocking was applied from the level of the foot to the most proximal level of the thigh. 08657 - Endovenous RF, 1st Vein All charges added?: Procedure code (CPT) selection complete Assessment & Plan Assessment & Plan (1) Varicose veins of right lower extremity with inflammation: Comment: 07/12/2024 - right great saphenous vein radiofrequency ablation Code(s): I83.11 - Varicose veins of right lower extremity with inflammation Category: Medical Plan: See op note Coding Level of Care Code Procedure Only Diagnoses Varicose veins of right lower extremity with inflammation I83.11 CPT Codes Details - Vascular 1: 17726 - Endovenous RF, 1st Vein ([id number])
== END 2024-07-12 09:38 | disposition home or self-care (01) ==
PROVIDERS: PCP Internal Medicine; Visit Provider Surgery Vascular Surgery
DX: I83.11 Varicose veins of right lower extremity with inflammation (principal)
CPT/HCPCS: 36475

== ENCOUNTER → 2024-07-12 08:13 | Outpatient (BNVA) | payer OTHER, SELFPAY | PROVIDERS: PCP Internal Medicine; Visit Provider Surgery Vascular Surgery | DX: I83.11 Varicose veins of right lower extremity with inflammation (principal) | CPT/HCPCS: 36475; J2003; J2004 ==

== ENCOUNTER 2024-07-25 13:40 | Outpatient (AMB) | payer OTHER, SELFPAY ==
--- NOTE | 2024-07-25 14:02 | MHC.OFFVIS ---
Vital Signs 07/25/24 14:03 Height 5 ft 10 in Weight 175 lb BMI 25.1 Intake Visit Reasons: 2 week R GSV RFA 07/12/24 Intake Note: 2 wk follow up Right GSV RFA 07/12/24, does have hard rope where treated area. Pt states it has helped to decrease some restlessness at night. Accompanied by: Self / Same As Patient Allergies No Known Allergies [No Known Allergies*] Allergy (Verified 07/25/24 14:08) HPI HPI 2 week R GSV RFA 07/12/24: Details: Very pleasant 59-year-old female presents for follow-up status post right great saphenous radiofrequency a ablation. She reports that the leg has done significantly well. She does have rather large rope-like varicosities that course down the anterior aspects of both thighs. Right appears to have decreased. In particular the pretibial surface she reports it is significantly better. She now presents for follow-up of the right lower extremity. She does have similar concerns of the left lower extremity. This does cause swelling pain discomfort. [facility] Medical History Liver cyst Cholelithiasis Choledocholithiasis History of Dbyqt-Uwrsgfvpv-Ynbgy (WPW) syndrome Surgical History History of cholecystectomy History of ERCP Family History Mother T-cell lymphoma Father Dementia Heart disease Other Mental health disorder Social History Household Members: Family Housing: House Do you presently have visiting nurse or other home services: No Alcohol intake: never Patient Tobacco Use Status: Current everyday Tobacco user Tobacco use type: Cigarette Cigarette Packs Per Day: 1 Cigarettes Per Day: 15 Years Smoked: 27 e-Cigarette/Vaping Use: Never Used Second Hand Smoke Exposure: No Advance Directives Date on File: 06/08/21 service: No Current occupational status: employed Gender identity: Female Cognitive needs: No Hearing needs: No Vision needs: Yes Review of Systems Const Reports as per HPI ENT Reports no additional complaints Card Denies chest pain, Denies chest pain at rest and Denies chest pain with activity Resp Denies chest congestion and Denies cough GI Reports no additional complaints Musc Details: pain over varicosities, aching of lower extremities, swelling, cramping, heaviness and tiredness, itching Denies abnormal gait Skin/Breast Reports pruritus and Denies wounds Neuro Reports no additional complaints and Denies abnormal gait Psych Denies no additional complaints Physical Exam Vital Signs: BMI result Body Mass Index 25.1 Const General: cooperative, healthy appearing and comfortable Orientation/consciousness: oriented to person, oriented to place and oriented to time Neck Carotids: no bruits Chest Chest palpation & inspection: normal inspection of the chest and normal palpation of entire chest wall Resp Effort & Inspection: normal respiratory effort and able to speak in complete sentences Cardio Rate: regular rate Heart sounds: S1 normal heart sound present and S2 normal heart sound present Peripheral pulses: Peripheral pulses 2+ throughout GI Inspection: Yes normal to inspection Skin Other: +2 edema, large rope-like varicosities greater than 4 mm CEAP Classification C4 - skin color changes Ep - Etiology Primary As - superficial veins P - reflux General skin exam: dry skin Neuro General: oriented to person, oriented to place and oriented to time Extrem Right lower extremity: full ROM, normal capillary refill and edema Left lower extremity: full ROM, normal capillary refill and edema Psych Mental Status: mental status grossly normal Results Reviewed Results Reviewed: Brief summary of venous insufficiency testing is as follows: right great saphenous vein: Ablated right small saphenous vein: negative right accessory vein: none present left great saphenous vein: Positive left small saphenous vein: negative left accessory vein: none present Please note there is no evidence of any venous aneurysms or significant tortuosity Assessment & Plan Assessment & Plan (1) Varicose veins of right lower extremity with inflammation: Comment: 07/12/2024 - right great saphenous vein radiofrequency ablation Code(s): I83.11 - Varicose veins of right lower extremity with inflammation Category: Medical Plan: Doing well. Will treat left leg (2) Varicose veins of left lower extremity with inflammation: Code(s): I83.12 - Varicose veins of left lower extremity with inflammation Category: Medical Plan: This patient has varicose veins with inflammation. They continue to be a source of discomfort for the patient. The patient has tried conservative treatment with compression, leg elevation and exercise program for over 3 months time. They have been compliant with all treatment. This has provided minimal relief for the patient. I do not anticipate this course of treatment will alter the underlying etiology. The patient has been scheduled for lower extremity venous treatment inclusive of --- left great Radiofrequency ablation. Risks, benefits, and complications of this procedure has been discussed in detail with the patient including but not limited to bleeding, infection, and the development of a DVT. The patient has demonstrated a clear understanding and has consented. We will schedule the patient as soon as possible. Thank you for allowing us to participate in this patient's care. If there are any questions or concerns please do not hesitate to contact us. Coding Level of Care Code Est Pt Level 4 (79877) Complex EM visit Add On G2211 Diagnoses Varicose veins of right lower extremity with inflammation I83.11 Varicose veins of left lower extremity with inflammation I83.12
[2024-07-25 14:03] VITALS: BMI 25.1
--- OUTSIDE RECORDS SUMMARY | 2024-07-25 16:36 | XMS_ITS | Clinical Summary ---
Author Organization [facility] Address [address] [place] [id number] Care Team Providers Care Batch Roller Operator Name Role Phone System, Provider Not In [...] (07/09/2021): Added automatically from request for surgery [id number] Social History Tobacco Use Types Packs/Day Years [...] Inactivated Comments 07/09/2021 3:03 AM Care Teams Batch Roller Operator Relationship Specialty Start Date End Date System, Provider Not In PCP - General 07/08/21
== END 2024-07-25 14:54 | disposition home or self-care (01) ==
PROVIDERS: PCP Internal Medicine; Visit Provider Surgery Vascular Surgery
DX: I83.11 Varicose veins of right lower extremity with inflammation (principal); I83.12 Varicose veins of left lower extremity with inflammation
CPT/HCPCS: 99214; G2211

== ENCOUNTER → 2024-07-25 13:40 | Outpatient (BNVA) | payer OTHER, SELFPAY | PROVIDERS: PCP Internal Medicine; Visit Provider Surgery Vascular Surgery | DX: I83.11 Varicose veins of right lower extremity with inflammation (principal); I83.12 Varicose veins of left lower extremity with inflammation; F17.210 Nicotine dependence, cigarettes, uncomplicated | CPT/HCPCS: 99212 ==

== ENCOUNTER 2024-09-13 07:15 | Outpatient (AMB) | payer OTHER, SELFPAY ==
--- NOTE | 2024-09-13 07:33 | MHC.OFFVIS ---
Intake Visit Reasons: L GSV RFA Accompanied by: Self / Same As Patient Allergies No Known Allergies [No Known Allergies*] Allergy (Verified 09/13/24 07:34) PFSH Medical History Liver cyst Cholelithiasis Choledocholithiasis History of Izbiq-Gpewiysjq-Papnx (WPW) syndrome Surgical History History of cholecystectomy History of ERCP Family History Mother T-cell lymphoma Father Dementia Heart disease Other Mental health disorder Social History Household Members: Family Housing: House Do you presently have visiting nurse or other home services: No Alcohol intake: never Patient Tobacco Use Status: Current everyday Tobacco user Tobacco use type: Cigarette Cigarette Packs Per Day: 1 Cigarettes Per Day: 15 Years Smoked: 27 e-Cigarette/Vaping Use: Never Used Second Hand Smoke Exposure: No Advance Directives Date on File: 06/08/21 service: No Current occupational status: employed Gender identity: Female Cognitive needs: No Hearing needs: No Vision needs: Yes Office Procedures Vascular Office Procedure Details Details: Diagnosis: Varicose veins with inflammation of left leg Procedure: Endovenous radiofrequency ablation of the left great saphenous vein(s) of the lower extremity. Anesthesia: Local infiltration to cc, Tumescent 300 cc. Estimated Blood Loss: minimal Specimen: Varicose veins The patient was transferred to the procedure suite and the insufficient saphenous vein was mapped by ultrasound and diagrammed on the overlying skin. The depth and diameter of the vein(s) to be treated was documented. The varicose tributary veins and suitable access sites were identified and mapped as well. The patient was then positioned supine on the procedure table. The affected limb was prepped and draped in the usual sterile fashion. The RF catheter was placed on the sterile field, flushed and wiped down, prepared, and connected by a sterile cable. The patient was placed in supine position and local anesthesia was instilled in the skin overlying the access site. A skin incision was made overlying the identified and mapped great saphenous vein entry site. The vein was accessed using ultrasound guidance and the Seldinger technique, a guide wire was introduced through the needle, which was then exchanged over the guide wire for a 6F sheath, which was secured in place. The guide wire was removed and the sheath was flushed. The RF catheter was placed into the vein through the sheath and preferentially, imaging was used to place the catheter tip just inferior to the superficial epigastric vein to preserve normal physiological flow in that vein. Additionally, it was confirmed by ultrasound guidance that the catheter tip was also placed a minimum of 1.5cm distal to the saphenofemoral junction. After the RF catheter position was verified by ultrasound, tumescent anesthesia was infiltrated, under ultrasound guidance, precisely into the perivenous compartment along the entire length of vein from the entry site to the saphenofemoral junction until a halo of fluid was noted around the vein. The patient was then placed in supine position to further exsanguinate the superficial venous system. After RF catheter position was again confirmed with ultrasound imaging, and under direct external compression along the length of the heating element, RF energy was applied. The vein was segmentally ablated by heating a 8 cm segment and then indexing the catheter forward by 7.5 cm until the treatment length is completed. Device temperature was maintained at 120 plus or minus 5 degrees C with an initial power level of 40W dropping to below 20W for each treatment. Total vein length treated 24 cm Total cycles of RF 3. Repeat ultrasound of the saphenous vein was performed, confirming successful treatment. The catheter and sheath were withdrawn and hemostasis established with direct pressure. After assuring hemostasis, the skin incision over the saphenous vein was closed with a bandage and a compression wrap, and/ or graduated compression stocking was applied from the level of the foot to the most proximal level of the thigh. 25940 - Endovenous RF, 1st Vein All charges added?: Procedure code (CPT) selection complete Assessment & Plan Assessment & Plan (1) Varicose veins of left lower extremity with inflammation: Comment: 09/13/2024 - left great saphenous vein radiofrequency ablation Code(s): I83.12 - Varicose veins of left lower extremity with inflammation Category: Medical Plan: See op note Coding Level of Care Code Procedure Only Diagnoses Varicose veins of left lower extremity with inflammation I83.12 CPT Codes Details - Vascular 1: 19903 - Endovenous RF, 1st Vein ([id number])
== END 2024-09-13 08:35 | disposition home or self-care (01) ==
LOC: HO.HVS 07:16
PROVIDERS: PCP Internal Medicine; Visit Provider Surgery Vascular Surgery
DX: I83.12 Varicose veins of left lower extremity with inflammation (principal)
CPT/HCPCS: 36475

== ENCOUNTER → 2024-09-13 07:15 | Outpatient (BNVA) | payer OTHER, SELFPAY | PROVIDERS: PCP Internal Medicine; Visit Provider Surgery Vascular Surgery | DX: I83.12 Varicose veins of left lower extremity with inflammation (principal) | CPT/HCPCS: 36475; J2003; J2004 ==

== ENCOUNTER 2024-09-26 14:47 | Outpatient (AMB) | payer OTHER, SELFPAY ==
[2024-09-26 14:52] VITALS: BMI 25.1
--- NOTE | 2024-09-26 14:52 | A.OFFVIS_ITS ---
Vital Signs 09/26/24 14:52 Height 5 ft 10 in Weight 175 lb BMI 25.1 Intake Visit Reasons: 2 week follow up L GSV RFA Intake Note: 2 week follow up Left GSV RFA 09/13/24, pt states that she is having pain to the touch.Hx of Right GSV RFA 07/12/24, pt states Right LE feels much better. Accompanied by: Self / Same As Patient Allergies No Known Allergies [No Known Allergies*] Allergy (Verified 09/26/24 14:56) HPI HPI 2 week follow up L GSV RFA: Details: Very pleasant 59-year-old female presents for follow-up status post left great saphenous vein ablation. Prior to that she had had undergone right lower extremity great saphenous vein ablation as well. She now presents for routine postprocedure follow-up. Of note she did develop some mild postprocedure phlebitis. She does have significantly large bilateral varicosities. They have been affecting her daily activities including work at [employer], [employer] Medical History Liver cyst Cholelithiasis Choledocholithiasis History of Ujxaz-Claigbwiv-Rowad (WPW) syndrome Surgical History History of cholecystectomy History of ERCP Family History Mother T-cell lymphoma Father Dementia Heart disease Other Mental health disorder Social History Household Members: Family Housing: House Do you presently have visiting nurse or other home services: No Alcohol intake: never Patient Tobacco Use Status: Current everyday Tobacco user Tobacco use type: Cigarette Cigarette Packs Per Day: 1 Cigarettes Per Day: 15 Years Smoked: 27 e-Cigarette/Vaping Use: Never Used Second Hand Smoke Exposure: No Advance Directives Date on File: 06/08/21 service: No Current occupational status: employed Gender identity: Female Cognitive needs: No Hearing needs: No Vision needs: Yes Review of Systems Const Reports as per HPI ENT Reports no additional complaints Card Denies chest pain, Denies chest pain at rest and Denies chest pain with activity Resp Denies chest congestion and Denies cough GI Reports no additional complaints Musc Details: pain over varicosities, aching of lower extremities, swelling, cramping, heaviness and tiredness, itching Denies abnormal gait Skin/Breast Reports pruritus and Denies wounds Neuro Reports no additional complaints and Denies abnormal gait Psych Denies no additional complaints Physical Exam Vital Signs: BMI result Body Mass Index 25.1 Const General: cooperative, healthy appearing and comfortable Orientation/consciousness: oriented to person, oriented to place and oriented to time Neck Carotids: no bruits Chest Chest palpation & inspection: normal inspection of the chest and normal palpation of entire chest wall Resp Effort & Inspection: normal respiratory effort and able to speak in complete sentences Cardio Rate: regular rate Heart sounds: S1 normal heart sound present and S2 normal heart sound present Peripheral pulses: Peripheral pulses 2+ throughout GI Inspection: Yes normal to inspection Skin Other: +2 edema, large rope-like varicosities greater than 4 mm CEAP Classification C4 - skin color changes Ep - Etiology Primary As - superficial veins P - reflux General skin exam: dry skin Neuro General: oriented to person, oriented to place and oriented to time Extrem Right lower extremity: full ROM, normal capillary refill and edema Left lower extremity: full ROM, normal capillary refill and edema Psych Mental Status: mental status grossly normal Assessment & Plan Assessment & Plan (1) Varicose veins of right lower extremity with inflammation: Comment: 07/12/2024 - right great saphenous vein radiofrequency ablation Code(s): I83.11 - Varicose veins of right lower extremity with inflammation Category: Medical Plan: See below (2) Varicose veins of left lower extremity with inflammation: Comment: 09/13/2024 - left great saphenous vein radiofrequency ablation Code(s): I83.12 - Varicose veins of left lower extremity with inflammation Category: Medical Plan: Patient has undergone bilateral great saphenous vein ablation is. She does have large varicosities. She would like to manage this conservatively at the current time. She would like to see how much the varicosities shrink. More concerning is her right than her left. She will require operative microphlebectomy if so required in the future due to the large nature of the veins. We did discuss routine conservative measures including compression elevation and exercise. She will follow up with us in approximately 6 months time. Thank you for allowing us to assist in her care. If there are any questions or concerns please do not hesitate to contact us Coding Level of Care Code Est Pt Level 4 (14250) Diagnoses Varicose veins of right lower extremity with inflammation I83.11 Varicose veins of left lower extremity with inflammation I83.12
--- OUTSIDE RECORDS SUMMARY | 2024-09-26 15:27 | XMS_ITS | Clinical Summary ---
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 18 tablet 07/11/2021 Active Active Problems Problem Noted Date Diagnosed Date Hepatic cyst 07/09/2021 Ascites 07/08/2021 Overview (07/09/2021): Added automatically from request for surgery [id number] Social History Tobacco Use Types Packs/Day Years Used Date Smoking Tobacco: Never Assessed Comments Unknown Sex and Gender Information Value Date Recorded Sex Assigned at Not on file Legal Sex Female 4:33 PM EST Gender Identity Not on file Sexual Orientation [...] (1 of 3 - Risk 3-dose series) 10/2022 RSV Vaccine 60 years and old er and Patients (1 - Risk 60-74 years 1-dose series) 2023 COVID-19 Vaccine ( - 2023- season) 2024 Influenza Vaccine 12/20/2024 Insurance [facility] [place] [employer] Advance Directives * Full Code (Latest Code Status on File) Date Activated Date Inactivated Comments 07/09/2021 3:03 AM Care Teams M48 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
== END 2024-09-26 15:09 | disposition home or self-care (01) ==
LOC: HO.HVS 14:48
PROVIDERS: PCP Internal Medicine; Visit Provider Surgery Vascular Surgery
DX: I83.11 Varicose veins of right lower extremity with inflammation (principal); I83.12 Varicose veins of left lower extremity with inflammation
CPT/HCPCS: 99214

== ENCOUNTER → 2024-09-26 14:47 | Outpatient (BNVA) | payer OTHER, SELFPAY | PROVIDERS: PCP Internal Medicine; Visit Provider Surgery Vascular Surgery | DX: I83.11 Varicose veins of right lower extremity with inflammation (principal); I83.12 Varicose veins of left lower extremity with inflammation; F17.210 Nicotine dependence, cigarettes, uncomplicated | CPT/HCPCS: 99212 ==

== ENCOUNTER 2025-02-21 15:24 | Outpatient (AMB) | payer OTHER, SELFPAY ==
--- OUTSIDE RECORDS SUMMARY | 2025-02-21 15:26 | XMS_ITS | Clinical Summary ---
Author Organization [facility] Address [address] [place] [id number] Care Team Providers Care Rn Medicare Name Role Phone System, Provider Not In Primary Care Provider Un available Allergies No known active allergies Medications amoxicillin-clav ulanate (AUGMENTIN) 875-125 MG per tabletIndication s:Hepatic cyst Take 1 tablet by mouth 2 (two) times a day. 18 tablet 07/11/2021 Active Active Problems Problem Noted Date Diagnosed Date Hepatic cyst 07/09/2021 Ascites 07/08/2021 Overview (07/09/2021): Added automatically from request for surgery [id number] Social History Tobacco Use Types Packs/Day Years [...] 70 07/11/2021 12:08 PM EST Temperature 36.7 C (98.1 F) 07/11/2021 12:08 PM EST Respiratory Rate 18 07/11/2021 12:08 PM EST [...] 60-74 years 1-dose series) 2023 Influenza Vaccine 12/20/2024 COVID-19 Vaccine (2023- season) 2025 Insurance [facility] [place] Advance Directives * Full Code (Latest Code Status on File) Date Activated Date Inactivated Comments 07/09/2021 3:03 AM Care Teams Rn Medicare Relationship Specialty Start Date End Date System, Provider Not In PCP - General 07/08/21
--- OUTSIDE RECORDS SUMMARY | 2025-02-21 15:26 | XMS_ITS ---
Author Name [facility] Organization Unknown Problems Problem Status Onset Date Problem Type Date of Resoluti on Source Hepatic cyst active 2021-07-09 [facility] Ascites active 2021-07-08 [facility] Encounters Encounter Type Encounter Reason Primary Diagnosis Location Date Inpatient Other specified diseases of liver [facility] 07/08/2021 Care Team Organization Name Specialty Phone Email Start Date End Da te [facility] 07/08/2021 01/08/2024 [facility] PROVIDER SYSTEM Primary Care 07/08/20212021
[2025-02-21 15:27] VITALS: BP 112/72; PULSE 82; O2SAT 97; BMI 25.1
--- NOTE | 2025-02-21 15:27 | A.OFFPC_ITS ---
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 Required: No Accompanied by: Self / Same As Patient Allergies No Known Allergies (No Known Allergies*) Allergy (Verified 02/21/25 15:28) Medication List - Last Reconciled 02/21/25 by Odilon Cardenas MD [Tylenol PRN] Tobacco use date assessed: 02/21/25 Dental Screening Dental Screen Date: 02/21/25 Did you have a dental visit in the last 12 months?: Yes Did you have a dental problem in the last 6 months where you did not have access to dental care?: No Was dental information given to patient?: Patient has dentist HPI Annual PE HPI Details History of Present Illness The patient is a 59-year-old female presenting for a physical examination. Yfcoq-Tbdcziwfv-Puege syndrome: - The patient has a history of Faina-Par kinson-White syndrome. - She has not seen the specialist recent ly because she was advised to return only if she experiences specific symptoms such as palpitations. History of liver cyst removal: - Patient was followed up by Dr. Omer, who managed her liver issues. - She had a liver cyst that was removed. Varicosities both legs, currently seeing vascular specialist Smoking: - The patient currently smokes, sometime s a pack per day and has been smoking for over 30 years - She expressed no desire to quit smokin g. Due for lung screening order placed Pulmonary function test ordered as well Social History: - The patient is a current smoker, consu saranya up to one pack of cigarettes daily. - She consumes milk daily, including in her coffee in the morning and a 16-ounce glass at dinner. Family History: - T-cell lymphoma in mother - Mother had a hip replacement surgery Health Maintenance - CBC within normal limits as of February year - Normal kidney functions and electrolyt es based on the metabolic profile from February - Hemoglobin A1c was 5.2 as of February year - LDL was 121 in February - Mammogram performed in February ye ar - No colonoscopy performed; a referral f or a new colonoscopy was previously given - Bone density scan was ordered - Patient was advised on vitamin D suppl ementation - Smoking cessation was discussed but de clined by the patient [place] of Care - Established care with OBGYN and gastro enterology at [facility] Due for visits, referral placed again Medications - The patient is not currently on any me dications. Employment - Employed at [employer], fast-paced [employer] - No issues with shortness of breath at work Diagnostic results - Labs: - CBC within normal limits () - Normal kidney functions and electrolyt es (February) - Hemoglobin A1c: 5.2 (February ) - LDL: 121 (February) - Tests and Diagnostics: - Mammogram in February Patient Instructions - Scheduling mammogram, bone density halina ts, and a colonoscopy - Visit OBGYN and follow up with special ists as needed - Fast before blood tests and show up an ytime during open hours - Consider lifestyle changes to improve health - Return for a review of laboratory resu lts - stop smoking or at least cut down - lung scan ordered - pulmonary function test ordered Review of Systems - General: No fever no chills - Neurological: No headaches no dizzin ess - Ear nose throat: No sore throat no hearing difficulty no ear pain - Cardiovascular: No syncope, no chest pain, no palpitations - Gastrointestinal: No nausea vomiting or diarrhea - Endocrine: No polyuria polydipsia no heat intolerance - Genitourinary: No dysuria - Skin: No new complaints Physical Exam General: Cooperative, healthy appearing, comfortable, no acute distress Orientation: Patient oriented x3 Head: Normal to inspection Ears: Within normal limit visually Nose: Normal external nose present Face and sinus: Normal facial exam Eyes: Appearance normal, extraocular movement intact pupils reactive Neck: Normal visual inspection and supple Respiratory: Normal respiratory effort and able to speak in complete sentences. Clear to auscultation, no stridor Cardiovascular: S1 and S2 RRR, history of Pqkly-Oznukkdsn-Mcrma syndrome Breast exam through OBGYN as per patient GI: Normal to inspection. Soft to palpation and nontender Skin: Turgor normal, no acute findings, no moles changing, no rashes Neuro: Patient oriented x3, motor sensory intact, balance intact, tandem pass Extremities: Normal to inspection, wearing leg compressions, varicosities both legs . [facility] Medical History Liver cyst Cholelithiasis Choledocholithiasis History of Okgut-Deifdzgws-Fdywq (WPW) syndrome Surgical History History of cholecystectomy History of ERCP Family History Mother T-cell lymphoma Father Dementia Heart disease Other Mental health disorder Social History Household Members: Family Housing: House Do you presently have visiting nurse or other home services: No Alcohol intake: never Patient Tobacco Use Status: Current everyday Tobacco user Tobacco use type: Cigarette Cigarette Packs Per Day: 1 Cigarettes Per Day: 15 Years Smoked: 27 e-Cigarette/Vaping Use: Never Used Second Hand Smoke Exposure: No Advance Directives Date on File: 06/08/21 service: No Current occupational status: employed Gender identity: Female Cognitive needs: No Hearing needs: No Vision needs: Yes Questionnaire PHQ-9 Over the last 2 weeks, how often have you been bothered by any of the following problems? 1. Little interest or pleasure in doing things: not at all 2. Feeling down, depressed, or hopeless: not at all 3. Trouble falling or staying asleep, or sleeping too much: not at all 4. Feeling tired or having little energy: not at all 5. Poor appetite or overeating: not at all 6. Feeling bad about yourself - or that you are a failure or have let yourself or your family down: not at all 7. Trouble concentrating on things, such as reading the newspaper or watching television: not at all 8. Moving or speaking so slowly that other people could have noticed. Or the opposite - being so fidgety or restless that you have been moving around a lot more than usual: not at all 9. Thoughts that you would be better off or of hurting yourself in some way: not at all Total score: 0 Depression Screening Interpretation: Negative Depression Screening Done: Yes 48636 - PHQ-9 Billing: Yes Source: Developed by Drs. Michael Maher, Jennifer Feliz, Price Klein and colleagues, with an educational flor from [employer]. Thrive Questionnaire Date Thrive assessed: 02/14/25 I am a: Patient What is your living situation today?: I have a steady place to live Within the past 12 months, did the food you bought not last and you didn't have the money to get more?: Never true Within the past 12 months, did you worry whether your food would run out before you got money to buy more?: Never true Do you have trouble paying for medicines?: No Do you have trouble getting transportation to medical appointments?: No Do you have trouble paying your heating and electricity bill?: No Do you have trouble taking care of your child, family member or friend?: No Do you have trouble with day-to-day activities such as bathing, preparing meals, shopping, managing finances, etc.?: No Are you currently unemployed and looking for a job?: No Are you interested in more education?: No Please select the resources that you would like help with: None Currently or been in a relationship where the following occur: No concerns reported THRIVE Score: 0 AUDIT C Alcohol Use Questionnaire (AUDIT-C) 1. How often do you have a drink containing alcohol?: Never 2. How many drinks containing alcohol do you have on a typical day when you are drinking?: 1 or 2 3. How often do you have six or more drinks on one occasion?: Never Total Score: 0 Score Reviewed/Action Taken: Yes DARON-7 AMB Questionnaire DARON-7 Date DARON - 7 assessed: 02/21/25 Feeling nervous, anxious, or on edge: 0 = Not at all Not being able to stop or control worryin = Not at all Worrying too much about different things: 0 = Not at all Trouble relaxin = Not at all Being so restless that it is hard to sit still: 0 = Not at all Becoming easily annoyed or irritable: 0 = Not at all Feeling afraid as if something awful might happen: 0 = Not at all Total DARON-7 score (0-4 normal; 5-9 mild; 10-14 moderate; 15-21 severe): 0 Source: Developed by Drs. Michael Maher, Jennifer Feliz, Price Klein and colleagues, with an educational flor from [employer]. DARON-7 Assessment Billing DARON-7 Assessment Tool: DARON-7 Assessment 19952 Physical exam (Primary Care) Vital Signs: Last Vital Signs Pulse 82 02/21/25 15:27 BP 112/72 02/21/25 15:27 Pulse Ox 97 02/21/25 15:27 BMI result Body Mass Index 25.1 Tobacco/Smoking Status: Tobacco use Status Tobacco use date assessed 02/21/25 02/21/25 15:31 Patient Tobacco Use Status Current everyday Tobacco 02/21/25 15:31 Tobacco use type Cigarette 02/21/25 15:31 e-Cigarette/Vaping Use Never Used 02/21/25 15:31 PHQ-9: PHQ-9 Score PHQ-9: Total score 0 02/21/25 15:31 Depression Screening Interpretation: Negative Thrive Assessment: Date of Thrive Assessment Date Thrive assessed 02/14/25 02/21/25 15:31 Currently or been in a relationship where the following occur: No concerns reported Coding Level of Care Code Est Pt Level 3 (19381) Est Pt Prev Care 40-64y(88194) Diagnoses Encounter for general adult medical examination with abnormal findings Z00.01 Tobacco abuse Z72.0 Impaired fasting blood sugar R73.01 Menopausal state N95.1 Additional Codes DARON-7 Assessment Billing - DARON-7 Assessment Tool: DARON-7 Assessment 42110 ([id number]) PHQ-9 - 61044 - PHQ-9 Billing: Yes ([id number]) Assessment & Plan Assessment & Plan (1) Encounter for general adult medical examination with abnormal findings: Code(s): Z00.01 - Encounter for general adult medical examination with abnormal findings Category: Medical (2) Tobacco abuse: Code(s): Z72.0 - Tobacco use Category: Medical (3) Impaired fasting blood sugar: Code(s): R73.01 - Impaired fasting glucose Category: Medical (4) Menopausal state: Code(s): N95.1 - Menopausal and female climacteric states Category: Medical Plan History of Present Illness The patient is a 59-year-old female presenting for a physical examination. Rflla-Rcwocdawz-Uivww syndrome: - The patient has a history of Pawef-Gqswqimej-Ibteh syndrome. - She has not seen the specialist recently because she was advised to return only if she experiences specific symptoms such as palpitations. History of liver cyst removal: - Patient was followed up by Dr. Omer, who managed her liver issues. - She had a liver cyst that was removed. Varicosities both legs, currently seeing vascular specialist Smoking: - The patient currently smokes, sometimes a pack per day and has been smoking for over 30 years - She expressed no desire to quit smoking. Due for lung screening order placed Pulmonary function test ordered as well Social History: - The patient is a current smoker, consuming up to one pack of cigarettes daily. - She consumes milk daily, including in her coffee in the morning and a 16-ounce glass at dinner. Family History: - T-cell lymphoma in mother - Mother had a hip replacement surgery Health Maintenance - CBC within normal limits as of February - Normal kidney functions and electrolytes based on the metabolic profile from February - Hemoglobin A1c was 5.2 as of February - LDL was 121 in February - Mammogram performed in February - No colonoscopy performed; a referral for a new colonoscopy was previously given - Bone density scan was ordered - Patient was advised on vitamin D supplementation - Smoking cessation was discussed but declined by the patient [place] of Care - Established care with OBGYN and gastroenterology at [facility] Due for visits, referral placed again Medications - The patient is not currently on any medications. Employment - Employed at [employer] - No issues with shortness of breath at work Diagnostic results - Labs: - CBC within normal limits (February) - Normal kidney functions and electrolytes (February) - Hemoglobin A1c: 5.2 (February) - LDL: 121 (February) - Tests and Diagnostics: - Mammogram in February Patient Instructions - Scheduling mammogram, bone density tests, and a colonoscopy - Visit OBGYN and follow up with specialists as needed - Fast before blood tests and show up anytime during open hours - Consider lifestyle changes to improve health - Return for a review of laboratory results - stop smoking or at least cut down - lung scan ordered - pulmonary function test ordered Orders: Orders Hemoglobin A1c Today F17.200 - Nicotine dependence, unspecified, uncomplicated, R73.01 - Impaired fasting glucose, Z00.01 - Encounter for general adult medical examination with abnormal findings, Z72.0 - Tobacco use Complete Blood Count Auto Diff Today F17.200 - Nicotine dependence, unspecified, uncomplicated, R73.01 - Impaired fasting glucose, Z00.01 - Encounter for general adult medical examination with abnormal findings, Z72.0 - Tobacco use Lipid Panel Today F17.200 - Nicotine dependence, unspecified, uncomplicated, R73.01 - Impaired fasting glucose, Z00.01 - Encounter for general adult medical examination with abnormal findings, Z72.0 - Tobacco use Vitamin D 25-OH (D2 and D3) Today F17.200 - Nicotine dependence, unspecified, uncomplicated, R73.01 - Impaired fasting glucose, Z00.01 - Encounter for general adult medical examination with abnormal findings, Z72.0 - Tobacco use Comprehensive [place]. Panel Fast Today F17.200 - Nicotine dependence, unspecified, uncomplicated, R73.01 - Impaired fasting glucose, Z00.01 - Encounter for general adult medical examination with abnormal findings, Z72.0 - Tobacco use TSH reflex Free T4 Today F17.200 - Nicotine dependence, unspecified, uncomplicated, R73.01 - Impaired fasting glucose, Z00.01 - Encounter for general adult medical examination with abnormal findings, Z72.0 - Tobacco use MM tomosynthesis screening BI Today N95.1 - Menopausal and female climacteric states, Z12.31 - Encounter for screening mammogram for malignant neoplasm of breast XR DEXA axial skeleton Today N95.1 - Menopausal and female climacteric states, Z12.31 - Encounter for screening mammogram for malignant neoplasm of breast PFT pulmonary function test Today Z72.0 - Tobacco use Referrals DIRECTOR OF [facility] Referral Z01.419 - Encounter for gynecological examination (general) (routine) without abnormal findings Lung Cancer Screening Referral Z72.0 - Tobacco use Open Access Screening Colonoscopy Referral Z12.11 - Encounter for screening for malignant neoplasm of colon
== END 2025-02-21 15:57 | disposition home or self-care (01) ==
LOC: HO.HMCC 15:24
PROVIDERS: PCP Internal Medicine; Visit Provider Internal Medicine
DX: Z00.01 Encounter for general adult medical examination with abnormal findings (principal); R73.01 Impaired fasting glucose; Z72.0 Tobacco use; N95.1 Menopausal and female climacteric states

== ENCOUNTER → 2025-02-21 15:24 | Outpatient (BNVA) | payer OTHER, SELFPAY | PROVIDERS: PCP Internal Medicine; Visit Provider Internal Medicine | DX: Z00.01 Encounter for general adult medical examination with abnormal findings (principal); I45.6 Pre-excitation syndrome; I83.93 Asymptomatic varicose veins of bilateral lower extremities; R73.01 Impaired fasting glucose; N95.1 Menopausal and female climacteric states; F17.210 Nicotine dependence, cigarettes, uncomplicated | CPT/HCPCS: 96127; 99396 ==

== ENCOUNTER 2025-02-27 14:26 | Outpatient (AMB) | payer OTHER, SELFPAY ==
[2025-02-27 14:27] VITALS: BMI 25.1
--- NOTE | 2025-02-27 14:27 | MHC.OFFVIS ---
Vital Signs 02/27/25 14:27 Height 5 ft 10 in Weight 175 lb BMI 25.1 Intake Visit Reasons: 5m L leg check s/p L GSV RFA Intake Note: 5 mo follow up VV s/p Right GSV RFA 07/12/24 & Left GSV RFA 09/13/24. Pt states that Right LE still feels tight when working long shifts on her feet. Has large VV. Accompanied by: Self / Same As Patient Allergies No Known Allergies (No Known Allergies*) Allergy (Verified 02/27/25 14:36) HPI HPI 5m L leg check s/p L GSV RFA: Details: Very pleasant 60-year-old female has undergone by the great saphenous vein ablation. Appears to be doing relatively well with that. She does have a large cluster of varicosities in particular the right knee and leg. They have been a source of pain and discomfort for her. They have been affecting her daily activities as she works daily at [employer] the early shift. She typically works from 05:00 to 13:00. She has been compliant with her compression and it has provided minimal relief. She now presents for follow-up. PENDING SALE TO [facility] Medical History Liver cyst Cholelithiasis Choledocholithiasis History of Fyzjh-Olxsffmvy-Afghy (WPW) syndrome Surgical History History of cholecystectomy History of ERCP Family History Mother T-cell lymphoma Father Dementia Heart disease Other Mental health disorder Social History Household Members: Family Housing: House Do you presently have visiting nurse or other home services: No Alcohol intake: never Patient Tobacco Use Status: Current everyday Tobacco user Tobacco use type: Cigarette Cigarette Packs Per Day: 1 Cigarettes Per Day: 15 Years Smoked: 27 e-Cigarette/Vaping Use: Never Used Second Hand Smoke Exposure: No Advance Directives Date on File: 06/08/21 service: No Current occupational status: employed Gender identity: Female Cognitive needs: No Hearing needs: No Vision needs: Yes Review of Systems Const Reports as per HPI ENT Reports no additional complaints Card Denies chest pain, Denies chest pain at rest and Denies chest pain with activity Resp Denies chest congestion and Denies cough GI Reports no additional complaints Musc Details: pain over varicosities, aching of lower extremities, swelling, cramping, heaviness and tiredness, itching Denies abnormal gait Skin/Breast Reports pruritus and Denies wounds Neuro Reports no additional complaints and Denies abnormal gait Psych Denies no additional complaints Physical Exam Vital Signs: BMI result Body Mass Index 25.1 Const General: cooperative, healthy appearing and comfortable Orientation/consciousness: oriented to person, oriented to place and oriented to time Neck Carotids: no bruits Chest Chest palpation & inspection: normal inspection of the chest and normal palpation of entire chest wall Resp Effort & Inspection: normal respiratory effort and able to speak in complete sentences Cardio Rate: regular rate Heart sounds: S1 normal heart sound present and S2 normal heart sound present Peripheral pulses: Peripheral pulses 2+ throughout GI Inspection: Yes normal to inspection Skin Other: +2 edema, large rope-like varicosities greater than 4 mm right knee and calf CEAP Classification C4 - skin color changes Ep - Etiology Primary As - superficial veins P - reflux General skin exam: dry skin Neuro General: oriented to person, oriented to place and oriented to time Extrem Right lower extremity: full ROM, normal capillary refill and edema Left lower extremity: full ROM, normal capillary refill and edema Psych Mental Status: mental status grossly normal Assessment & Plan Assessment & Plan (1) Varicose veins of left lower extremity with inflammation: Comment: 09/13/2024 - left great saphenous vein radiofrequency ablation Code(s): I83.12 - Varicose veins of left lower extremity with inflammation Category: Medical Plan: See below (2) Varicose veins of right lower extremity with inflammation: Comment: 07/12/2024 - right great saphenous vein radiofrequency ablation Code(s): I83.11 - Varicose veins of right lower extremity with inflammation Category: Medical Plan: This patient has varicose veins with inflammation. They continue to be a source of discomfort for the patient. The patient has tried conservative treatment with compression, leg elevation and exercise program for over 3 months time. They have been compliant with all treatment. This has provided minimal relief for the patient. I do not anticipate this course of treatment will alter the underlying etiology. The patient has been scheduled for lower extremity venous treatment inclusive of --- right leg microphlebectomy. Risks, benefits, and complications of this procedure has been discussed in detail with the patient including but not limited to bleeding, infection, and the development of a DVT. The patient has demonstrated a clear understanding and has consented. We will schedule the patient as soon as possible. Thank you for allowing us to participate in this patient's care. If there are any questions or concerns please do not hesitate to contact us. Coding Level of Care Code Est Pt Level 4 (36634) Diagnoses Varicose veins of left lower extremity with inflammation I83.12 Varicose veins of right lower extremity with inflammation I83.11
== END 2025-02-27 14:59 | disposition home or self-care (01) ==
LOC: HO.HVS 14:27
PROVIDERS: PCP Internal Medicine; Visit Provider Surgery Vascular Surgery
DX: I83.12 Varicose veins of left lower extremity with inflammation (principal); I83.11 Varicose veins of right lower extremity with inflammation
CPT/HCPCS: 99214

== ENCOUNTER → 2025-02-27 14:26 | Outpatient (BNVA) | payer OTHER, SELFPAY | PROVIDERS: PCP Internal Medicine; Visit Provider Surgery Vascular Surgery | DX: I83.11 Varicose veins of right lower extremity with inflammation (principal); I83.12 Varicose veins of left lower extremity with inflammation | CPT/HCPCS: 99212 ==

== ENCOUNTER 2025-03-01 07:18 | Outpatient (REF) | payer OTHER, SELFPAY ==
--- OUTSIDE RECORDS SUMMARY | 2025-03-01 07:21 | XMS_ITS | Clinical Summary ---
Author Organization [facility] Address [address] [place] [id number] Care Team Providers Care Timekeeper Name Role Phone System, Provider Not In Primary Care Provider Un available Allergies No known active allergies Medications amoxicillin-clav ulanate (AUGMENTIN) 875-125 MG per tabletIndication s:Hepatic cyst Take 1 tablet by mouth 2 (two) times a day. 18 tablet 07/11/2021 Active Active Problems Problem Noted Date Diagnosed Date Hepatic cyst 07/09/2021 Ascites 07/08/2021 Overview (07/09/2021): Added automatically from request for surgery [id number] Social History Tobacco Use Types Packs/Day Years [...] 12/20/2024 COVID-19 Vaccine (2023- season) 2025 Insurance [facility] [place] [employer] Advance Directives * Full Code (Latest Code Status on File) Date Activated Date Inactivated Comments 07/09/2021 3:03 AM Care Teams Timekeeper Relationship Specialty Start Date End Date System, Provider Not In PCP - General 07/08/21
[2025-03-01 11:06] LABS: MANUAL DIFF FLAG NO
[2025-03-01 11:11] LABS: Hematocrit 44.2 % (37.0-47.0); Hemoglobin 14.0 g/dl (12.0-16.0); Imm Gran Abs Auto 0.00 X10*3/uL (0.00-0.03); Imm Gran Pct Auto 0.0 % (0.0-0.4); Lymphocytes Absolute Auto 1.1 X10*3/uL (1.2-4.9); Mean Corpuscular HGB Conc 31.7 g/dl (31.0-35.0); Mean Corpuscular Hemoglobin 27.9 pg (27.0-33.0); Mean Corpuscular Volume 88.0 fL (80.0-98.0); NRBC Abs Auto 0.000 X10*3/uL (0.0-0.012); NRBC Pct Auto 0.0 /100WBC (0.0-0.2); Platelet Count 190 X10*3/uL (160-400); Red Blood Count 5.02 X10*6/uL (4.20-5.50); White Blood Count 5.2 X10*3/uL (4.8-10.8)
[2025-03-01 12:01] LABS: Alanine Aminotransferase 15 U/L (0-31); Albumin Level 4.2 g/dL (3.5-5.0); Alkaline Phosphatase 93 U/L (39-117); Anion Gap 11 (12-20); Aspartate Amino Transferase 25 U/L (5-31); Blood Urea Nitrogen 15 mg/dL (9-16); Calcium 9.7 mg/dL (8.4-10.2); Carbon Dioxide 27 mmol/L (22-29); Chloride 109 mmol/L (96-108); Cholesterol 190 mg/dL (<200); Estimated Glomerular Filt Rate > 60; HDL Cholesterol 57 mg/dL (>40); Potassium 4.6 mmol/L (3.3-5.1); Sodium 142 mmol/L (135-145); Total Protein 7.1 g/dL (6.5-8.0); Triglycerides 60 mg/dL (<150)
[2025-03-07 15:23] LABS: Vitamin D 25-OH, D2 <4 ng/mL; Vitamin D 25-OH, D3 26 ng/mL; Vitamin D 25-OH, Total 26 ng/mL (30-100)
== END 2025-03-01 07:19 | disposition home or self-care (01) ==
LOC: HO.HMGCLDS 07:18
PROVIDERS: PCP Internal Medicine; Visit Provider Internal Medicine
DX: Z00.01 Encounter for general adult medical examination with abnormal findings (principal); F17.200 Nicotine dependence, unspecified, uncomplicated; R73.01 Impaired fasting glucose
CPT/HCPCS: 36415; 80053; 80061; 82306; 83036; 84443; 85025

== ENCOUNTER 2025-03-31 08:46 | Day surgery (SDC) | payer OTHER, SELFPAY ==
--- OUTSIDE RECORDS SUMMARY | 2025-03-05 08:40 | XMS_ITS | Clinical Summary ---
Author Organization [facility] Address [address] [place] [id number] Care Team Providers Care Motion Picture Commentator Name Role Phone System, Provider Not In Primary Care Provider Un available Allergies No known active allergies Medications amoxicillin-clav ulanate (AUGMENTIN) 875-125 MG per tabletIndication s:Hepatic cyst Take 1 tablet by mouth 2 (two) times a day. 18 tablet 07/11/2021 Active Active Problems Problem Noted Date Diagnosed Date Hepatic cyst 07/09/2021 Ascites 07/08/2021 Overview (07/09/2021): Added automatically from request for surgery [id number] Social History Tobacco Use Types Packs/Day Years [...] - Risk 3-dose series) 10/2022 RSV Vaccine 50 years and old er and Patients (1 - Risk 60-74 years 1-dose series) 2023 Influenza Vaccine 12/20/2024 COVID-19 Vaccine ( - 2023- season) 2025 Insurance [facility] [place] [employer] Advance Directives * Full Code (Latest Code Status on File) Date Activated Date Inactivated Comments 07/09/2021 3:03 AM Care Teams Motion Picture Commentator Relationship Specialty Start Date End Date System, Provider Not In PCP - General 07/08/21
--- NOTE | 2025-03-26 13:03 | P.CONAN_ITS ---
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 per PCP office visit PMFSH Active Problems Active Problems: All Active Problems Menopausal state (Acute) Tobacco dependence (Acute) Varicose veins of left lower extremity with inflammation (Acute) Varicose veins of right lower extremity with inflammation (Acute) Varicose veins of both lower extremities with inflammation (Acute) Varicose veins of bilateral lower extremities with other complications (Acute) Right lumbar radiculitis (Acute) Impaired fasting blood sugar (Acute) Cold intolerance (Acute) Liver cyst (Acute) Pancreatic cyst (Acute) Ascites (Acute) Hospital discharge follow-up (Acute) Right upper quadrant pain (Acute) Routine gynecological examination (Acute) Colon cancer screening (Acute) Breast screening (Acute) Encounter for general adult medical examination with abnormal findings (Acute) Tobacco abuse (Acute) Liver cyst (Acute) LFT elevation (Acute) S/P laparoscopic cholecystectomy (Acute) Past Medical History Medical History Liver cyst Cholelithiasis Choledocholithiasis History of Kncqp-Tcotukbrz-Pfaqm (WPW) syndrome Family History Family History Mother T-cell lymphoma Father Dementia Heart disease Other Mental health disorder Surgical History Surgical History History of liver biopsy (02/24/22) History of cholecystectomy (02/2020) History of ERCP History of Problems with Anesthesia: No Social History Social History Household Members: Family Housing: House Are you a primary child care provider to a significant other at home: No Do you presently have visiting nurse or other home services: No Alcohol intake: never Patient Tobacco Use Status: Current everyday Tobacco user Tobacco use type: Cigarette Cigarette Packs Per Day: 1 Cigarettes Per Day: 15 Years Smoked: 27 e-Cigarette/Vaping Use: Never Used Second Hand Smoke Exposure: No Advance Directives Date on File: 06/08/21 service: No Current occupational status: employed Gender identity: Female Cognitive needs: No Hearing needs: No Vision needs: Yes Meds Allergies Allergy/AdvReac Type Severity Reaction Status Date / Time No Known Allergies (No Known Allergy Verified 03/31/25 09:28 Allergies*) Home Medications ?Medication ?Instructions ?Recorded ?Confirmed ?Last Taken ?Type Tylenol PRN Pain 02/24/22 02/21/25 U nknown History Exam Pertinent Lab Results Pertinent Lab Results: Laboratory Tests 03/01/25 07:22 WBC 5.2 Hgb 14.0 Hct 44.2 Plt Count 190 Sodium 142 Potassium 4.6 Chloride 109 H Carbon Dioxide 27 BUN 15 Creatinine 0.63 Assessment and Plan Assessment Anesthesia Assessment: Chart Reviewed Final Anesthetic Review History of Problems with Anesthesia: No Documented by User: Sourav Ch MD 03/31/25 09:59 [facility] Past Medical History Medical History Liver cyst Cholelithiasis Choledocholithiasis History of Qnrjw-Gbdqlmnek-Jothy (WPW) syndrome Family History Family History Mother T-cell lymphoma Father Dementia Heart disease Other Mental health disorder Family history of problems with anesthesia: No Surgical History Surgical History History of liver biopsy (02/24/22) History of cholecystectomy (02/2020) History of ERCP Social History Social History Household Members: Family Housing: House Are you a primary child care provider to a significant other at home: No Do you presently have visiting nurse or other home services: No Alcohol intake: never Patient Tobacco Use Status: Current everyday Tobacco user Tobacco use type: Cigarette Cigarette Packs Per Day: 1 Cigarettes Per Day: 15 Years Smoked: 27 e-Cigarette/Vaping Use: Never Used Second Hand Smoke Exposure: No Advance Directives Date on File: 06/08/21 service: No Current occupational status: employed Gender identity: Female Cognitive needs: No Hearing needs: No Vision needs: Yes Meds Allergies Allergy/AdvReac Type Severity Reaction Status Date / Time No Known Allergies (No Known Allergy Verified 03/31/25 09:28 Allergies*) Home Medications ?Medication ?Instructions ?Recorded ?Confirmed ?Last Taken ?Type Tylenol PRN Pain 02/24/22 02/21/25 U nknown History Exam Exam Date and Time: 03/31/2025 Airway Mallampati Class: II TM Dist: >3cm Neck ROM: Full Loose/Missing/Broken Teeth: Yes Heart: rrr Lungs: ctab vesicular Assessment and Plan Assessment Anesthesia Assessment: Anesthesia Plan Discussed and Smoking Cess. Discussed Final Anesthetic Review Family History of Problems with Anesthesia: No NPO: Yes ASA Class: II Final Preanesthetic Review: No Changes in Pt Med Stat, Meds/Allgs Chart Reviewed, Consent Obtained/Reviewed and Anes Risks/Benef Reviewed Patient Risk: Low Procedure Risk: Low Anesthetic Plan Anesthetic Plan: GA Disposition: Standard PACU
[2025-03-27 12:08] VITALS: BMI 25.1
[2025-03-31] VITALS (9 sets, daily range): BP systolic 99–140; BP diastolic 47–76; PULSE 54–73; RESP 12–18; TEMP 36.2–36.6; O2SAT 94–100; BMI 25.5
--- NOTE | 2025-03-31 07:19 | MHC.SHP ---
Pre-Procedural Eval Section A - 24 Hr Update-Section A only Date of Service: 03/31/25 Section B - Complete if H&P > 30 days Chief Complaint: Varicose veins of right lower extremity Relevant Family History (Specify if Yes): No Allergies: Allergies Allergy/AdvReac Type Severity Reaction Status Date / Time No Known Allergies (No Known Allergy Verified 02/27/25 14:36 Allergies*) Review of Systems Sugical H&P ROS: Negative: Constitution, Cardiovascular, Respiratory and Neurological Exam Surgical H&P Exam: Normal: HEENT, Normal: Heart and Normal: Lungs and Significant Findings: Extremities (varicose veins) Plan Diagnosis/Plan: Unchanged I have reviewed the history and physical and performed a pertinent physical examination on my patient. No changes have occurred unless specified. Time Spent With Patient Time: Total time managing care of this patient today ____ minutes.
--- NOTE | 2025-03-31 09:24 | ECG_ITS ---
Test Reason : preop Blood Pressure : */* mmHG Vent. Rate : 71 BPM Atrial Rate : 71 BPM P-R Int : 160 ms QRS Dur : 80 ms QT Int : 366 ms P-R-T Axes : 64 21 36 degrees QTcB Int : 397 ms Normal sinus rhythm Normal ECG When compared with ECG of 07-Jun-2021 15:54, No significant change was found Referred By: Hodan Melo Electronically Signed By: TRINITY LINARES MD
[2025-03-31] MEDS: Lactated Ringers 1,000 ML 100 ML IVCONT (09:52)
--- NOTE | 2025-03-31 12:30 | P.OP_ITS ---
Operative Note Operative Note Date of Service: 03/31/25 Narrative: Operative note by [facility] Preoperative diagnosis: Right leg varicose veins with inflammation Postoperative diagnosis: Same Procedure:1. Right leg microphlebectomy (23) 2. Ligation of venous cluster x2 Surgeon:Chente Jimenez M.D. Building Services Coordinator: None Anesthesia: General Specimens: 1 Drains: None Estimated blood loss: 100 mL Indications: Very pleasant 60-year-old female with extremely large varicosities of the right lower extremity now presents for microphlebectomy. The patient has signed the informed consent after reviewing risks, complications, benefits, and alternatives previously discussed with the patient. The patient was given the opportunity to ask any additional questions or voice any concerns. All questions were answered to the patient's satisfaction. Procedure in detail: Varicose veins were marked in the standing position on the right leg and the patient was then placed in the supine position. The right lower extremity was prepared and draped to allow knee flexion in the sterile field. The patient had large superficial varicose veins with significant symptoms of pain. It was therefore determined to perform microphlebectomies of the clusters of varicose veins. The patient had bulging varicose veins which were previously marked in the standing position. A small stab incision was made longitudinally directly overlying the varicose vein in the calf and the varicose vein was grasped with a hemostat aided by a vein hook. It was then dissected as far proximally and distally as possible and avulsed. A total of 23 stab incisions were made and the procedure of stab phlebectomies was repeated 23 times. She had a large cluster in the medial thigh and medial calf. We made an incision at the base of this cluster. We removed the varicosities which actually turned out to be somewhat phlebitic as well. Once that cluster was removed with fine mosquitos we suture ligated the base with a 3-0 Polysorb. Once again this was done in 2 separate locations the thigh and calf. Hemostasis was checked and stab incision sites were closed with steri-strips and sterile dressing was given with gauze and krilex wrap followed by an burton bandage. There were no complications and blood loss was minimal. Post-Op instructions were given and a follow-up appointment was recommended. This note is constructed using voice recognition software. While every effort has been made to ensure accuracy, full time errors may have been included. Thank you for allowing me to participate in the care of your patient. Yours sincerely, Chente Jimenez MD, FACS, R.P.V.I.
== END 2025-03-31 14:09 | disposition home or self-care (01) ==
PROVIDERS: PCP Internal Medicine; Visit Provider Surgery Vascular Surgery
PROC: (CPT 37766; principal; 2025-03-31 10:50)
DX: I83.11 Varicose veins of right lower extremity with inflammation (principal); Z98.890 Other specified postprocedural states; K80.50 Calculus of bile duct without cholangitis or cholecystitis without obstruction; K76.89 Other specified diseases of liver; I45.6 Pre-excitation syndrome; Z90.49 Acquired absence of other specified parts of digestive tract; F17.210 Nicotine dependence, cigarettes, uncomplicated
CPT/HCPCS: 37766; 37785; 88304; 93005; J0131; J0690; J1100; J2003; J2250; J2405; J2795; J3010

== ENCOUNTER → 2025-03-31 08:46 | Outpatient (BNV) | payer OTHER, SELFPAY | PROVIDERS: PCP Internal Medicine; Visit Provider Surgery Vascular Surgery | DX: I83.11 Varicose veins of right lower extremity with inflammation (principal) | CPT/HCPCS: 37766; 37785 ==

== ENCOUNTER → 2025-03-31 09:24 | Outpatient (BNV) | payer OTHER, SELFPAY | PROVIDERS: PCP Internal Medicine; Visit Provider Internal Medicine Cardiovascular Disease | DX: Z01.810 Encounter for preprocedural cardiovascular examination (principal) | CPT/HCPCS: 93010 ==

== ENCOUNTER 2025-04-12 07:32 | Outpatient (REF) | payer OTHER, SELFPAY ==
--- NOTE | ~2025-04-12 | MM_ITS ---
EXAMINATION: MM SCREENING DIGITAL BREAST TOMOSYNTHESIS, BILATERAL CLINICAL INFORMATION: Screening. Asymptomatic. COMPARISON: Mammography: Comparison is made with available priors TECHNIQUE: Digital breast mammography with tomosynthesis is performed in both the craniocaudal and mediolateral oblique views along with computer-aided detection (CAD). FINDINGS: There are scattered areas of fibroglandular density. There are no significant masses, abnormal calcifications, or other abnormalities. MM/MM tomosynthesis screening BI IMPRESSION: No mammographic evidence of malignancy. ASSESSMENT: BI-RADS Category 1: Negative RECOMMENDATION: Routine annual mammography screening. 1 year F/U This examination should not preclude the clinical evaluation of a suspicious palpable abnormality. This patient's information was entered into a reminder system with a target due date for their next mammogram. Electronically signed by: Tricia Saavedra DO 04/15/2025 03:31 PM [facility]ON[facility]ANTON
--- OUTSIDE RECORDS SUMMARY | 2025-04-12 07:33 | XMS_ITS | Clinical Summary ---
Author Organization [facility] Address [address] [place] [id number] Care Team Providers Care Railroad Operating Engineer Name Role Phone System, Provider Not In Primary Care Provider Un available Allergies No known active allergies Medications amoxicillin-clav ulanate (AUGMENTIN) 875-125 MG per tabletIndication s:Hepatic cyst Take 1 tablet by mouth 2 (two) times a day. 18 tablet 07/11/2021 Active Active Problems Problem Noted Date Diagnosed Date Hepatic cyst 07/09/2021 Ascites 07/08/2021 Overview (07/09/2021): Added automatically from request for surgery [id number] Social History Tobacco Use Types Packs/Day Years [...] 50+ (1 of 1 - PCV) 2013 RSV Vaccine 50 years and old er and Patients (1 - Risk 50-74 years 1-dose series) 2013 Zoster (Shingles) Vaccine (1 of 2) 2013 Hepatitis B Vaccines (1 of 3 - Risk 3-dose series) 10/2022 Influenza Vaccine 12/20/2024 COVID-19 Vaccine ( - 2023- season) 2025 Insurance [facility] [place] [employer] Advance Directives * Full Code (Latest Code Status on File) Date Activated Date Inactivated Comments 07/09/2021 3:03 AM Care Teams Railroad Operating Engineer Relationship Specialty Start Date End Date System, Provider Not In PCP - General 07/08/21
== END 2025-04-12 07:33 | disposition home or self-care (01) ==
LOC: HO.MAMMO 07:32
PROVIDERS: PCP Internal Medicine; Visit Provider Internal Medicine
DX: Z12.31 Encounter for screening mammogram for malignant neoplasm of breast (principal); N95.1 Menopausal and female climacteric states
CPT/HCPCS: 77063; 77067

== ENCOUNTER → 2025-04-12 07:45 | Outpatient (BNV) | payer OTHER, SELFPAY | PROVIDERS: PCP Internal Medicine; Visit Provider Internal Medicine | DX: Z12.31 Encounter for screening mammogram for malignant neoplasm of breast (principal) | CPT/HCPCS: 77063; 77067 ==

== ENCOUNTER 2025-04-15 14:34 | Outpatient (AMB) | payer OTHER, SELFPAY ==
--- NOTE | 2025-04-15 14:48 | A.OFFVIS_ITS ---
Intake Visit Reasons: 2 week follow up R leg micro *OR* 03/31/25 Intake Note: 2 wk follow up Right Micro 03/31/25, has bruising and 2 bandaids over 2 seperate incisions. One incision over the carlos is red Solvent Station Attendant Required: No Accompanied by: Self / Same As Patient Allergies No Known Allergies (No Known Allergies*) Allergy (Verified 04/15/25 14:51) HPI HPI 2 week follow up R leg micro *OR* 03/31/25: Details: The patient is a 60 year old individual presenting for a follow-up visit after vein surgery. The patient recently underwent a right leg microphlebectomy in the operating room on 03/31/2025. Post-operatively, the patient reports discontinuing the use of compression socks due to pain. The patient noted a little drainage from an incision site after removing a steri-strip, which was identified as skin glue. The patient reports using ibuprofen for discomfort. To manage symptoms, the patient elevates the legs when at home and attempts to sit rather than stand while at work. Overall appears to be doing relatively well and reports that the leg is doing significantly better after the operation. Swelling has improved. [facility] Medical History Nicotine dependence, cigarettes, uncomplicated Liver cyst Cholelithiasis Choledocholithiasis History of Iyird-Mlapwcmip-Kkusg (WPW) syndrome Surgical History Status post phlebectomy History of liver biopsy (02/24/22) History of cholecystectomy (02/2020) History of ERCP Family History Mother T-cell lymphoma Father Dementia Heart disease Other Mental health disorder Social History Household Members: Family Housing: House Are you a primary healthcare representative to a significant other at home: No Do you presently have visiting nurse or other home services: No Alcohol intake: never Comment: declines further pain med Patient Tobacco Use Status: Current everyday Tobacco user Tobacco use type: Cigarette Cigarette Packs Per Day: 1 Cigarettes Per Day: 15 Years Smoked: 27 e-Cigarette/Vaping Use: Never Used Second Hand Smoke Exposure: No Advance Directives Date on File: 06/08/21 service: No Current occupational status: employed Gender identity: Female Cognitive needs: No Hearing needs: No Vision needs: Yes Review of Systems Const Reports as per HPI ENT Reports no additional complaints Card Denies chest pain, Denies chest pain at rest and Denies chest pain with activity Resp Denies chest congestion and Denies cough GI Reports no additional complaints Musc Details: pain over varicosities, aching of lower extremities, swelling, cramping, heaviness and tiredness, itching Denies abnormal gait Skin/Breast Reports pruritus and Denies wounds Neuro Reports no additional complaints and Denies abnormal gait Psych Denies no additional complaints Physical Exam Const General: cooperative, healthy appearing and comfortable Orientation/consciousness: oriented to person, oriented to place and oriented to time Neck Carotids: no bruits Chest Chest palpation & inspection: normal inspection of the chest and normal palpation of entire chest wall Resp Effort & Inspection: normal respiratory effort and able to speak in complete sentences Cardio Rate: regular rate Heart sounds: S1 normal heart sound present and S2 normal heart sound present Peripheral pulses: Peripheral pulses 2+ throughout GI Inspection: Yes normal to inspection Skin Other: +2 edema, large rope-like varicosities greater than 4 mm CEAP Classification C4 - skin color changes Ep - Etiology Primary As - superficial veins P - reflux General skin exam: dry skin Neuro General: oriented to person, oriented to place and oriented to time Extrem Right lower extremity: full ROM, normal capillary refill and edema Left lower extremity: full ROM, normal capillary refill and edema Psych Mental Status: mental status grossly normal Assessment & Plan Assessment & Plan (1) Varicose veins of right lower extremity with inflammation: Comment: 07/12/2024 - right great saphenous vein radiofrequency ablation 03/31/2025 - right leg microphlebectomy Code(s): I83.11 - Varicose veins of right lower extremity with inflammation Category: Medical Plan: I reviewed the patient's post-operative progress and confirmed the leg is healing well overall. I identified an area of superficial phlebitis and explained that it is an irritated vein, not an infection, recommending warm compresses and ibuprofen. We discussed return precautions, advising the patient to contact us if the phlebitic area worsens. We agreed to defer any procedure on the other leg until at least and scheduled a four-month follow-up to re-evaluate. I explained that if any minor residual veins require treatment, it could potentially be done in the office. (2) Varicose veins of left lower extremity with inflammation: Comment: 09/13/2024 - left great saphenous vein radiofrequency ablation Code(s): I83.12 - Varicose veins of left lower extremity with inflammation Category: Medical Plan: See above Coding Level of Care Code Est Pt Level 4 (66300) Diagnoses Varicose veins of right lower extremity with inflammation I83.11 Varicose veins of left lower extremity with inflammation I83.12
--- NOTE | 2025-04-15 14:50 | MHC.OFFVIS ---
Intake Visit Reasons: 2 week follow up R leg micro *OR* 03/31/25 Allergies No Known Allergies (No Known Allergies*) Allergy (Verified 04/15/25 14:51) [facility] Medical History Nicotine dependence, cigarettes, uncomplicated Liver cyst Cholelithiasis Choledocholithiasis History of Wjyhf-Grjqtvtlk-Rslui (WPW) syndrome Surgical History Status post phlebectomy History of liver biopsy (02/24/22) History of cholecystectomy (02/2020) History of ERCP Family History Mother T-cell lymphoma Father Dementia Heart disease Other Mental health disorder Social History Household Members: Family Housing: House Are you a primary career services assistant to a significant other at home: No Do you presently have visiting nurse or other home services: No Alcohol intake: never Comment: declines further pain med Patient Tobacco Use Status: Current everyday Tobacco user Tobacco use type: Cigarette Cigarette Packs Per Day: 1 Cigarettes Per Day: 15 Years Smoked: 27 e-Cigarette/Vaping Use: Never Used Second Hand Smoke Exposure: No Advance Directives Date on File: 06/08/21 service: No Current occupational status: employed Gender identity: Female Cognitive needs: No Hearing needs: No Vision needs: Yes Coding
--- OUTSIDE RECORDS SUMMARY | 2025-04-15 18:27 | XMS_ITS | Clinical Summary ---
Author Organization [facility] Address [address] [place] [id number] Care Team Providers Care Business Travel Consultant Name Role Phone System, Provider Not In Primary Care Provider Un available Allergies No known active allergies Medications amoxicillin-clav ulanate (AUGMENTIN) 875-125 MG per tabletIndication s:Hepatic cyst Take 1 tablet by mouth 2 (two) times a day. 18 tablet 07/11/2021 Active Active Problems Problem Noted Date Diagnosed Date Hepatic cyst 07/09/2021 Ascites 07/08/2021 Overview (07/09/2021): Added automatically from request for surgery [id number] Social History Tobacco Use Types Packs/Day Years [...] Vaccine ( - 2023- season) 2025 [place] [facility] [place] [facility] [place] Directives * Full Code (Latest Code Status on File) Date Activated Date Inactivated Comments 07/09/2021 3:03 AM Care Teams Business Travel Consultant Relationship Specialty Start Date End Date System, Provider Not In PCP - General 07/08/21
== END 2025-04-15 15:05 | disposition home or self-care (01) ==
LOC: HO.HVS 14:35
PROVIDERS: PCP Internal Medicine; Visit Provider Surgery Vascular Surgery
DX: I83.11 Varicose veins of right lower extremity with inflammation (principal); I83.12 Varicose veins of left lower extremity with inflammation
CPT/HCPCS: 99024

== ENCOUNTER → 2025-04-15 14:34 | Outpatient (BNVA) | payer OTHER, SELFPAY | PROVIDERS: PCP Internal Medicine; Visit Provider Surgery Vascular Surgery | DX: Z48.812 Encounter for surgical aftercare following surgery on the circulatory system (principal); I83.11 Varicose veins of right lower extremity with inflammation; I83.12 Varicose veins of left lower extremity with inflammation | CPT/HCPCS: 99212 ==